=== PATIENT | male | born 1945 | race Caucasian/White ===

== ENCOUNTER → 2019-07-12 10:55 | Outpatient (BNVA) | payer OTHER, SELFPAY | PROVIDERS: Family Provider Internal Medicine; PCP Internal Medicine; Visit Provider Otolaryngology | DX: Z48.89 Encounter for other specified surgical aftercare (principal); H72.91 Unspecified perforation of tympanic membrane, right ear | CPT/HCPCS: 99024; 99214 ==

== ENCOUNTER 2019-08-10 09:45 | Outpatient (CLI) | payer OTHER, SELFPAY | END 2019-08-10 09:46 | disposition home or self-care (01) | LOC: RT 09:47 | PROVIDERS: Family Provider Internal Medicine; PCP Internal Medicine; Visit Provider Internal Medicine Critical Care Medicine | DX: J43.9 Emphysema, unspecified (principal) | CPT/HCPCS: 94010; 94726; 94729 ==

== ENCOUNTER 2019-08-23 11:05 | Outpatient (CLI) | payer OTHER, SELFPAY ==
--- NOTE | 2019-08-23 11:00 | MR_ITS ---
WS: [id number] MRI LEFT SHOULDER HISTORY: left shoulder pain COMPARISON: None available. TECHNIQUE: Multiplanar sequences of the shoulder joint are submitted. Severe AC joint hypertrophy. Severe narrowing of the joint space with large osteophytes extending sup erior and inferior. Marked encroachment and impingement upon the supraspinatus muscle and tendon. Sup raspinatus is being deformed. No rotator cuff tear can be confirmed. There is significant thickening and increased signal involvin g the distal infraspinatus tendon along the inferior articular surface. Fraying of the infraspinatus tendon. Cannot confirm tear. There is no retraction of the tendons or muscle atrophy or edema. No os acromion. Subchondral cystic changes in the humeral head with osteophytes at the bicipital groove. Bi ceps tendon is very small caliber in the bicipital groove with surrounding increased fluid. Fluid ext ends around the biceps tendon sheath. Fluid distends the subscapularis recess. There are small tiny l oose bodies within the fluid. Fluid extends into the axillary pouch with some small loose bodies. Mod erate narrowing of the glenohumeral joint. No labral tear. MR/MR shoulder LT wo con* [id number] IMPRESSION: 1. Severe AC joint arthritis with encroachment, impingement and deformity of t he supraspinatus tendon and muscle. 2. Severe distal infraspinatus tendinopathy. Cannot confirm tendon tear. 3. Small caliber biceps tendon. Partial tear is likely at the bicipital groove with tendinopathy. 4. Increase fluid in the subscapularis recess and the axillary pouch with loos e bodies. May be small calcific or osseous deposits in the fluid. 5. Mild glenohumeral joint narrowing and arthritis.
== END 2019-08-23 11:06 | disposition home or self-care (01) ==
LOC: RADSHAW 11:05
PROVIDERS: Family Provider Internal Medicine; PCP Internal Medicine; Visit Provider Orthopaedic Surgery
DX: M13.812 Other specified arthritis, left shoulder (principal)
CPT/HCPCS: 73221

== ENCOUNTER 2019-11-02 08:56 | Emergency (ER) | payer OTHER, SELFPAY ==
--- NOTE | 2019-11-02 09:05 | W.ED.FALL ---
Documented by User: CORRIE Lozano 11/02/19 11:08 HPI - Fall General: Chief Complaint: Fall Stated Complaint: FALL, NECK INJURY Time Seen by Provider: 11/02/19 09:05 Source: patient Mode of arrival: ambulatory Limitations: no limitations History of Present Illness: HPI Narrative: Patient reports tripping and falling while walking out of the bathroom last night. Patient has a history of surgery to the neck. Patient is concerned for injury of the neck. Patient appears well. Patient appears in mild pain. Patient has a coronary artery disease, degenerative joint disease, depression, chronic pain syndrome, seasonal allergies. Associated symptoms-after fall: Reports neck pain Review of Systems General: Reports: 10 or more systems reviewed and unremarkable except in HPI and below Musc: Reports: neck pain PFSH ED PFSH: Social History Smoking and tobacco status: current every day smoker cigarettes Years cigarettes smoked: 50 Quit status (tobacco): has tried quititng Second hand smoke exposure: No Smoking risk assessment/counseling performed?: Yes Alcohol intake: never Lives independently: Yes Household members: spouse and family Marital status: service: Yes Current occupational status: retired History of recent travel: No Current gender identity: Male Physical Exam Const: COMMON NORMALS: no apparent distress and oriented x3 GENERAL APPEARANCE: cooperative HENMT: COMMON NORMALS: TM's normal bilaterally and external nose normal HEAD & SCALP: abrasion (left frontal scalp) NOSE: external nose normal TYMPANIC MEMBRANE: TM's normal bilaterally MOUTH: oral and palatal mucosa normal THROAT: posterior oropharynx normal Eye: GENERAL EYE: normal appearance of both eyes Neck/C-Spine: GENERAL: Yes normal visual inspection CERVICAL SPINE: Yes cervical ROM abnormal rotation to the left decreased and Yes paracervical muscle tenderness Lymph: LYMPHATIC: no lymphadenopathy noted Chest: COMMONS NORMALS: inspection of chest normal Resp: COMMON NORMALS: normal respiratory effort EFFORT & INSPECTION: Yes able to speak in complete sentences Cardio: COMMON NORMALS: regular rate and regular rhythm RATE: regular rate RHYTHM: regular rhythm GI: COMMON NORMALS: non-tender : COMMON NORMALS: Yes no CVA tenderness BLADDER/KIDNEY EXAM: Yes no CVA tenderness Back/Pelvis: COMMON NORMALS: no CVA tenderness and thoracic and lumbar spine normal to inspection Extremity: COMMON NORMALS: normal to inspection Neuro: COMMON NORMALS: oriented x3 and moves all extremities Psych: COMMON NORMALS: mental status grossly normal and cooperative Skin: COMMON NORMALS: no rashes or lesions noted GENERAL SKIN EXAM: no rashes or lesions noted Course ED course: 1046, reviewed CT scan with Dr. Aguirre after discussion with radiology. Dr. Guzman talked with Dr. Dwyer who reviewed abnormalities,, made recommendations for a [place] J collar and follow-up in 1 week. Vital Signs: Vital signs: Vital Signs Temperature 98.4 F 11/02/19 11:42 Pulse Rate 67 11/02/19 11:42 Respiratory Rate 18 11/02/19 11:42 Blood Pressure 148/84 11/02/19 11:42 Pulse Oximetry 95 11/02/19 11:42 MDM - Fall MDM Narrative: Medical decision making narrative: Patient fell last night striking his head against the door frame and extending his neck. Patient reports some neck discomfort this morning he was concerned for injury. Patient does have a history of previous neck surgery for fusion of disks. Patient appears well. Patient has neck tenderness, c-collar was put in place by nursing on triage. Equal strength in the extremities was noted. Patient does have a noticeable chronic tremor. Differential diagnosis includes fracture, intracranial injury, cervical strain. CT of the head was negative for any abnormality. EKG showed no changes. CT of the neck did show some osteophyte fractures of the C6-C7 but was more concerning for a facet nondisplaced fracture along the C6. Patient also had a thoracic T1 transverse process fracture. Dr. Dwyer was consulted by Dr. Aguirre with recommendations for collar and follow-up. EKG Data^: EKG 1: Attestation: I personally reviewed and interpreted this EKG as follows: (0924, SR regular rate 72 bpm, no ectopy, no ST elevation) Discharge Plan Discharge Patient Disposition: Home, Self-Care Clinical Impression: C6 cervical fracture Qualifiers: Encounter type: initial encounter Fracture type: closed Fracture morphology: unspecified fracture morphology Fracture alignment: nondisplaced Qualified Code(s): S12.501A - Unspecified nondisplaced fracture of sixth cervical vertebra, initial encounter for closed fracture Condition: Stable Prescriptions: New hydrocodone-acetaminophen 5-325 mg tablet 1 tab PO Q6H PRN (Reason: pain (scale score 7-10)) Qty: 20 RF: 0 No Action aspirin 81 mg tablet,delayed release (DR/EC) 81 mg PO DAILY RF: 0 atorvastatin 80 mg tablet 80 mg PO DAILY RF: 0 bupropion HCl 150 mg tablet extended release 24 hr 150 mg PO QAM RF: 0 fludrocortisone 0.1 mg tablet 0.05 mg PO DAILY RF: 0 fluorometholone 0.1 % drops,suspension 1 drop ophthalmic (eye) DAILY RF: 0 nitroglycerin 0.4 mg tablet, sublingual 0.4 mg SUBLINGUAL Q5M PRNRF: 0 omeprazole 20 mg capsule,delayed release(DR/EC) 40 mg PO DAILY RF: 0 quetiapine 200 mg tablet 200 mg PO DAILY RF: 0 sulfasalazine 500 mg tablet 1.5 gm PO BID RF: 0 tamsulosin 0.4 mg capsule 0.4 mg PO DAILY RF: 0 zolpidem 10 mg tablet 10 mg PO DAILY PRNRF: 0 cetirizine 10 mg capsule 10 mg PO DAILY RF: 0 isosorbide mononitrate 30 mg tablet extended release 24 hr 30 mg PO QAM RF: 0 fluticasone propionate [Flonase Allergy Relief] 50 mcg/actuation spray,suspension 1 spray INTRANASAL BID RF: 0 multivitamin Tablet 1 tab PO QAM RF: 0 ascorbic acid (vitamin C) 1,000 mg tablet 1 gm PO DAILY RF: 0 tizanidine 4 mg tablet 4 mg PO DAILY PRNRF: 0 trazodone 100 mg tablet 200 mg PO DAILY RF: 0 sertraline 100 mg tablet 200 mg PO Q24H RF: 0 Discharge Orders: Discharge Order (Routine); Ordered 11/02/19 Ordered By: Marty Ayala Referrals: Denis Degroot [Primary Care Provider] - Discharge Diet: Usual diet Discharge Activity: Increase activity as tolerated Patient Instructions: Cervical Fracture (ED) Activity Restrictions/Additional Instructions: Maintain cervical collar as directed for protection of fracture. Medications as directed for pain and discomfort. Use Tylenol to help control pain with hydrocodone for worse pain. Healthy diet and exercise. Follow-up with neurosurgery in 1 week. Discharge Date/Time: 11/02/19 11:25 Sign Out Sign Out Data: Patient Sign Out occurred on 11/02/19 at 10:52. Patient's care was discussed, and care was transferred from to Chago Aguirre DO. Coding Level of Care Code ED Portfolio Manager for Chg Fwd Exam Comprehensive Documented by User: Chago Aguirre DO 11/02/19 12:47 HPI - Fall General: Chief Complaint: Fall Stated Complaint: FALL, NECK INJURY Time Seen by Provider: 11/02/19 09:05 History of Present Illness: Associated symptoms-after fall: Reports neck pain; Denies abdominal pain or chest pain Review of Systems Const: Denies: fever, chills, change in appetite, fatigue or malaise ENMT: Denies: throat pain, ear pain, nasal discharge or nasal congestion Card: Denies: chest pain, edema, shortness of breath on exertion or shortness of breath when lying down Resp: Denies: shortness of breath, productive cough or non-productive cough GI: Denies: abdominal pain, nausea, vomiting, vomiting blood, coffee grounds in vomit, diarrhea, constipation, bloating, blood in stool or black tarry stool : Denies: flank pain, painful urination, urinary frequency or urinary urgency Musc: Reports: neck pain and back pain Skin/Breast: Denies: rash or itching PFSH ED PFSH: Social History Smoking and tobacco status: current every day smoker cigarettes Years cigarettes smoked: 50 Quit status (tobacco): has tried quititng Second hand smoke exposure: No Smoking risk assessment/counseling performed?: Yes Alcohol intake: never Lives independently: Yes Household members: spouse and family Marital status: service: Yes Current occupational status: retired History of recent travel: No Current gender identity: Male Physical Exam Const: COMMON NORMALS: no apparent distress GENERAL APPEARANCE: cooperative and comfortable ORIENTATION/CONSCIOUSNESS: Yes awake, Yes oriented to person, Yes oriented to place and Yes oriented to time HENMT: COMMON NORMALS: normocephalic, head/scalp atraumatic, hearing grossly normal bilaterally, external ears normal, EAC's normal, TM's normal bilaterally, nasal mucous membranes and turbinates normal, moist oral mucous membranes and oropharynx normal HEAD & SCALP: normocephalic and atraumatic NOSE: nasal mucous membranes and turbinates normal EXTERNAL EAR: Yes external ears normal EXTERNAL AUDITORY CANAL: EAC's normal TYMPANIC MEMBRANE: TM's normal bilaterally Eye: COMMON NORMALS: PERRL, EOMs intact bilaterally, conjunctivae normal and no scleral icterus CONJUNCTIVA: Yes conjunctivae normal PUPIL: Yes PERRL Neck/C-Spine: COMMON NORMALS: no JVD Lymph: LYMPHATIC: no lymphadenopathy noted and no lymphedema noted Resp: COMMON NORMALS: normal respiratory effort, no retractions, no use of accessory muscles and clear to auscultation bilaterally AUSCULTATION: clear to auscultation bilaterally Cardio: COMMON NORMALS: no JVD, regular rate, regular rhythm and no murmurs RATE: regular rate RHYTHM: regular rhythm GI: COMMON NORMALS: soft to palpation and no hepatosplenomegaly AUSCULTATION: Yes normoactive bowel sounds PALPATION: Yes soft, No tender, No guarding and Yes no hepatosplenomegaly Extremity: COMMON NORMALS: normal to inspection, normal capillary refill, no clubbing, cyanosis or edema, no calf tenderness and no pedal edema Neuro: SENSORIUM/ORIENTATION: Yes oriented to person, Yes oriented to place and Yes oriented to time Skin: COMMON NORMALS: no rashes or lesions noted NARRATIVE SKIN EXAM: Superficial abrasions across the forehead, no active bleeding no sign of infection GENERAL SKIN EXAM: no rashes or lesions noted Course Vital Signs: Vital signs: Vital Signs Temperature 98.4 F 11/02/19 11:42 Pulse Rate 67 11/02/19 11:42 Respiratory Rate 18 11/02/19 11:42 Blood Pressure 148/84 11/02/19 11:42 Pulse Oximetry 95 11/02/19 11:42 MDM - Fall MDM Narrative: Medical decision making narrative: Reviewed case with Ovi Ayala also discussed with Dr. Dwyer and reviewed the CT. He recommends a [place] J collar and follow-up within the week. Patient wishes to see his neurosurgeon that did the previous cervical fusion in [place] will have case management follow-up to make sure he is opportunity to see either Dr. Dwyer or that surgeon to make sure that he has some form of follow-up Discharge Plan Discharge Patient Disposition: Home, Self-Care Clinical Impression: C6 cervical fracture Qualifiers: Encounter type: initial encounter Fracture type: closed Fracture morphology: unspecified fracture morphology Fracture alignment: nondisplaced Qualified Code(s): S12.501A - Unspecified nondisplaced fracture of sixth cervical vertebra, initial encounter for closed fracture Condition: Stable Prescriptions: New hydrocodone-acetaminophen 5-325 mg tablet 1 tab PO Q6H PRN (Reason: pain (scale score 7-10)) Qty: 20 RF: 0 No Action aspirin 81 mg tablet,delayed release (DR/EC) 81 mg PO DAILY RF: 0 atorvastatin 80 mg tablet 80 mg PO DAILY RF: 0 bupropion HCl 150 mg tablet extended release 24 hr 150 mg PO QAM RF: 0 fludrocortisone 0.1 mg tablet 0.05 mg PO DAILY RF: 0 fluorometholone 0.1 % drops,suspension 1 drop ophthalmic (eye) DAILY RF: 0 nitroglycerin 0.4 mg tablet, sublingual 0.4 mg SUBLINGUAL Q5M PRNRF: 0 omeprazole 20 mg capsule,delayed release(DR/EC) 40 mg PO DAILY RF: 0 quetiapine 200 mg tablet 200 mg PO DAILY RF: 0 sulfasalazine 500 mg tablet 1.5 gm PO BID RF: 0 tamsulosin 0.4 mg capsule 0.4 mg PO DAILY RF: 0 zolpidem 10 mg tablet 10 mg PO DAILY PRNRF: 0 cetirizine 10 mg capsule 10 mg PO DAILY RF: 0 isosorbide mononitrate 30 mg tablet extended release 24 hr 30 mg PO QAM RF: 0 fluticasone propionate [Flonase Allergy Relief] 50 mcg/actuation spray,suspension 1 spray INTRANASAL BID RF: 0 multivitamin Tablet 1 tab PO QAM RF: 0 ascorbic acid (vitamin C) 1,000 mg tablet 1 gm PO DAILY RF: 0 tizanidine 4 mg tablet 4 mg PO DAILY PRNRF: 0 trazodone 100 mg tablet 200 mg PO DAILY RF: 0 sertraline 100 mg tablet 200 mg PO Q24H RF: 0 Discharge Orders: Discharge Order (Routine); Ordered 11/02/19 Ordered By: Marty Ayala Referrals: Denis Degroot [Primary Care Provider] - Discharge Diet: Usual diet Discharge Activity: Increase activity as tolerated Patient Instructions: Cervical Fracture (ED) Activity Restrictions/Additional Instructions: Maintain cervical collar as directed for protection of fracture. Medications as directed for pain and discomfort. Use Tylenol to help control pain with hydrocodone for worse pain. Healthy diet and exercise. Follow-up with neurosurgery in 1 week. Discharge Date/Time: 11/02/19 11:25 Sign Out Sign Out Data: Patient Sign Out occurred on 11/02/19 at 10:52. Patient's care was discussed, and care was transferred from to Chago Aguirre DO. Coding Level of Care Code ED Portfolio Manager for Chg Fwd Exam Comprehensive
[2019-11-02 09:06] VITALS: BP 138/77; PULSE 73; RESP 16; TEMP 36.6; O2SAT 95; BMI 34.8
--- NOTE | 2019-11-02 09:08 | CT_ITS ---
WS: [id number] CT HEAD TECHNIQUE: Noncontrast CT of the head obtained from the skullbase to the vertex. CLINICAL INFORMATION: fall COMPARISON: None. DLP: 935.[address] scans at [facility] use at least one of these dose optimization techniques: automat ed exposure control; mA and/or kV adjustment per patient size (includes targeted exams where dose is matched to clinical indication); or iterative reconstruction. FINDINGS: No evidence of intracranial hemorrhage or mass effect. Ventricular system and basal cisterns are chin nt. Mild small vessel changes with mild parenchymal volume loss. No extra-axial fluid collections. No evidence of mass or mass effect. Normal casas-white differentiation. Intracranial vascular calcificat ion. Paranasal sinuses and mastoid air cells are well aerated. .Normal visualized soft tissues. CT/CT head wo con* [id number] IMPRESSION: 1. No evidence of intracranial hemorrhage or mass effect. 2. Mild small vessel changes. Mild parenchymal volume loss. 3. No acute intracranial findings.
--- NOTE | 2019-11-02 09:08 | CT_ITS ---
WS: [id number] CT CERVICAL TRAUMA TECHNIQUE: Noncontrast CT of the cervical spine with coronal and sagittal reformatted images. CLINICAL INFORMATION: fall, pain COMPARISON: May 14, 2016 DLP: 870.[address] scans at [facility] use at least one of these dose optimization techniques: automat ed exposure control; mA and/or kV adjustment per patient size (includes targeted exams where dose is matched to clinical indication); or iterative reconstruction. FINDINGS:Nondisplaced fracture involving the right C6 inferior articulating facet extending just to t he lamina junction. Additional tiny fractures nondisplaced involving the anterior bridging right C6-C7 anterior vertebral body osteophytes. Additional tiny nondisplaced fracture involving the left T1 transverse process. Straightening of the normal cervical lordosis. Postoperative changes anterior interbody cervical fusi on C3-C5. Posterior cervical fixation with interconnecting horace and screws. Associated laminectomy def ects. Normal craniocervical junction. Normal C1-C2 articulation. Dens is normal in appearance. Normal occip ital condyles. No high-grade spinal canal narrowing. Normal C1 ring. Notified CORRIE Lozano at 11/02/2019 10:[address]/CT cervical spin wo con* [id number] IMPRESSION: 1. Nondisplaced fracture involving the right C6 inferior articulating facet ex tending just to the lamina junction 2. Additional tiny fractures nondisplaced involving the anterior bridging righ t C6-C7 anterior vertebral body osteophytes. 3. Additional tiny nondisplaced fracture involving the left T1 transverse proc ess. 4. Alignment is normal. Fusion hardware appears in good position at C3-C5 with anterior and posterior element fusion.
--- NOTE | 2019-11-02 09:08 | ECG_ITS ---
Measurements Intervals [place] Rate: 72 P: 41 CA: 116 QRS: 56 QRSD: 118 T: 45 QT: 404 QTc: 443 SINUS RHYTHM WITH SHORT CA INTERVAL MODERATE INTRAVENTRICULAR CONDUCTION DELAY [110+ ms QRS DURATION] Compared to ECG 06/18/2019 12:02:04 Short CA interval now present Electronically Signed On 11-02-2019 15:00:21 CDT by Miki Garnica M.D. [email or web address]
--- NOTE | 2019-11-02 11:32 | DCPLANNER ---
showroom manager was asked to schedule a follow up appointment for patient with Dr. Dwyer. showroom manager called the office of Dr. Dwyer, gave clinic patients information. showroom manager was told that patients information would be printed and given to Alexander for review. Clinic will call caser in and patient with appointment information.
[2019-11-02] MEDS: HYDROcodone-acetaminophen 7.5-325 mg Tablet 1 TAB PO (11:36)
[2019-11-02 11:42] VITALS: BP 148/84; PULSE 67; RESP 18; TEMP 36.9; O2SAT 95
--- NOTE | 2019-11-05 08:32 | DCPLANNER ---
Alexander from Dr. Torres office called correctional case records supervisor and left a message asking if a referral had [facility]. textile conversion manager had called [facility], last week to start the referral process. textile conversion manager called October, was told that patient seen his pack team, and stated that he wanted to follow up with the physician that did patients original surgery in [place]. textile conversion manager called the office of Dr. Dwyer and informed the clinic as of right now patient wants to follow up with the physician that did his surgery originally.
== END 2019-11-02 11:25 | disposition home or self-care (01) ==
PROVIDERS: Emergency Provider Family Medicine; Family Provider Internal Medicine; PCP Internal Medicine
DX: S12.501A Unspecified nondisplaced fracture of sixth cervical vertebra, initial encounter for closed fracture (principal); W01.0XXA Fall on same level from slipping, tripping and stumbling without subsequent striking against object, initial encounter; Z79.82 Long term (current) use of aspirin; F17.210 Nicotine dependence, cigarettes, uncomplicated
CPT/HCPCS: 12345; 70450; 72125; 93005; 97760; 99282; 99284; L0174

== ENCOUNTER 2020-01-08 07:07 | Outpatient (CLI) | payer OTHER, SELFPAY ==
--- NOTE | 2020-01-08 07:23 | ECG_ITS ---
[facility] Test Date: 2020-01-08 Pat Name: Chirag Osman Department: Room: Gender: Male Color Consultant: : 1945 Requested By: Venice Griffiths Order Number: [id number] Diana MD: Venice Griffiths M.D. Interpretive Statements NAME OF STUDY: LEXISCAN SESTAMIBI STRESS TEST INDICATION: Chest Pain PROCEDURE: At the baseline, the blood pressure was 114/69 mmHg with a heart rate of 61 bpm and oxygen saturation 93%. The electrocardiogram showed sinus bradycardia, normal axis with nonspecific T wave abnormality. The Lexiscan was infused over a period of 20 seconds. A total of 0.4 milligrams of Lexiscan was infused. The stress phase was continued for a total of 5 minutes. Heart rate at the end of the stress phase was 66 bpm, oxygen saturation 94% with a blood pressure 144/63 mmHg. The EKG at the peak infusion revealed sinus rhythm with no significant ST-T wave changes. Sestamibi was injected 20 seconds after the Lexiscan infusion. Blood pressure at the end of the recovery phase was 129/67 mmHg, oxygen saturation 93% with a heart rate of 65 beats per minute. CONCLUSION: 1. No significant EKG changes with the LexiScan infusion. 2. No LexiScan induced chest pain or cardiac arrhythmia. 3. Normal blood pressure and heart rate response. 4. Sestamibi/sestamibi perfusion scan pending; see separate report. Electronically Signed On 01-09-2020 17:15:34 CDT by Venice Griffiths M.D. [id number]
--- NOTE | 2020-01-08 07:24 | NMCV_ITS ---
NM aurora perf SPECT r/s* [id number] Chirag Osman Age: 74 Gender: M : 1945 Exam Date: 01/08/2020 08:26 Ordering Phys: Venice Griffiths MD ([email or web address]) Technologist: MARCELO Lawrence Exam Location: [facility] Indications: CHEST PAIN STRESS TEST Please see separate stress test report in [facility] for full findings IMAGE PROTOCOL Rest/Stress 1 Lexiscan Day Radiopharmaceutical Dose (mCi) Administration Site Administered by Rest: Tc-99m 10.9 IV MARCELO Lawrence Sestamibi Stress:Tc-99m 32.7 IV MARCELO Morales Sestamibi Rest: 08-Jan-2020 60 Discovery 630 Stress: 08-Jan-2020 30 Discovery 630 0.4mg Lexiscan. Supine position only as patient was unable to lay prone. SPECT RESULTS Technical Quality: Excellent Raw Data Analysis: Normal Image Corrections: No attenuation or motion correction applied Summed Stress Score: 0 Summed Rest Score: 5 Summed Difference Score: 0 PERFUSION FINDINGS Small size perfusion abnormality of mild severity of apical anterior, mid to apical anterolateral and apical reyes on rest images with improved tracer uptake on stress images. This is suggestive of attenuation artifact. FUNCTIONAL RESULTS (calculated via Gated SPECT) Stress Image LV EF (%): 51 Stress EDV (mL):121 TID: 0.98 Stress ESV (mL):59 FUNCTIONAL FINDINGS: The left ventricle is normal in size. Transient Ischemia Dilatation of 0.98. There is normal left ventricular systolic function. The left ventricular ejection fraction is normal with a value of 51%. There is normal left ventricular wall thickening. IMPRESSIONS 1. Normal myocardial perfusion imaging. Attenuation artifact noted in mid to apical anterolateral, apical anterior and apical reyes. 2. Overall left ventricular systolic function is normal without regional wall motion abnormalities. 3. The left ventricular ejection fraction is normal with a value of 51%. 4. No coronary ischemia based on the study. No prior similar studies to compare. Venice Griffiths MD (Electronically Signed) Final Date: 10 January 2020 17:57 S
[2020-01-08 07:25] VITALS: BMI 34.8
--- NOTE | 2020-01-08 09:28 | SUR.PREOP ---
Patient reports no pain or discomfort prior to the start of the procedure.
[2020-01-08] MEDS: regadenoson 0.4 Mg/5 ml Syringe IVP (09:34)
[2020-01-08 09:54] VITALS: BP 129/67; PULSE 67
== END 2020-01-08 07:08 | disposition home or self-care (01) ==
LOC: CDL 07:08
PROVIDERS: Family Provider Internal Medicine; Visit Provider Internal Medicine Cardiovascular Disease
DX: I25.119 Atherosclerotic heart disease of native coronary artery with unspecified angina pectoris (principal); I25.9 Chronic ischemic heart disease, unspecified
CPT/HCPCS: 78452; 93017; A9500; J2785

== ENCOUNTER 2020-10-14 11:08 | Outpatient (CLI) | payer OTHER, SELFPAY ==
--- NOTE | 2020-10-14 11:13 | MR_ITS ---
WS: [id number] MRI LUMBAR SPINE NONCONTRAST TECHNIQUE: Sagittal T1, T2 and STIR imaging. Axial T1 and T2 imaging. CLINICAL INFORMATION: LOW BACK PAIN COMPARISON: None. FINDINGS: Mild lumbar curve. No acute compression. No high-grade central canal stenosis. L1-L2: Mild annular bulging with narrowing of the subarticular recess bilaterally. Mild right greater than left foraminal narrowing. Mild facet arthropathy. L2-L3: Mild annular bulging. Moderate central canal stenosis with facet arthropathy and ligamentum fl avum flavum hypertrophy. Narrowing of the subarticular recess bilaterally. Foramen are patent. L3-L4: Mild annular bulging with narrowing of the subarticular recess bilaterally. Mild left greater than right foraminal narrowing. Moderate facet arthropathy. L4-L5: Shallow central disc protrusion with mild central canal stenosis. Impingement traversing L5 ne rve roots bilaterally. Moderate facet arthropathy. Mild right greater than left foraminal narrowing. L5-S1: Left pericentral disc protrusion impinges the traversing S1 nerve root in the subarticular rec ess. Correlation left S1 nerve root symptoms. Mild central canal stenosis. Moderate facet arthropathy . Mild left foraminal narrowing. Left renal cyst measuring 2.2 CM. MR/MR lumbar spine wo con* [id number] IMPRESSION: 1. Mild lumbar curve. No acute compression. 2. Moderate central canal stenosis L2-3 due to disc bulging with facet arthrop athy and ligamentum flavum hypertrophy. 3. Left pericentral disc protrusion L5-S1 impinges the traversing left S1 nerv e root in the subarticular recess.Correlation left S1 nerve root symptoms. Mild left L5-S1 foraminal narrowing. 4. Shallow central protrusion L4-5 slightly impinges the traversing L5 nerve r oots bilaterally. 5. Moderate facet arthropathy L3-L5.
== END 2020-10-14 11:09 | disposition home or self-care (01) ==
LOC: RADSHAW 11:10
PROVIDERS: PCP Family Medicine; Visit Provider Family Medicine
DX: M47.816 Spondylosis without myelopathy or radiculopathy, lumbar region (principal); M51.26 Other intervertebral disc displacement, lumbar region; M51.27 Other intervertebral disc displacement, lumbosacral region; M48.061 Spinal stenosis, lumbar region without neurogenic claudication
CPT/HCPCS: 72148

== ENCOUNTER 2021-03-20 17:16 | Emergency (ER) | payer OTHER, MEDICARE, SELFPAY ==
[2021-03-20 17:39] VITALS: BP 150/80; PULSE 82; RESP 20; TEMP 37.1; O2SAT 93; BMI 34.8
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
[2021-03-20 18:46] VITALS: BP 130/76; PULSE 73; RESP 18; O2SAT 92
--- NOTE | 2021-03-24 10:15 | DCPLANNER ---
copy manager had message to schedule a follow up appointment for patient with Dr. Rosas. copy manager faxed patients information to the office of Dr. Rosas, clinic will call patient with appointment information. Patient has [facility] insurance, case filler emailed patients information to Tatiana with [facility], for the authorization process could be started.
--- NOTE | 2021-03-25 12:42 | DCPLANNER ---
Patient had a follow up appointment scheduled for 03.23.21 with [facility] - patient attended appointment.
== END 2021-03-20 18:45 | disposition home or self-care (01) ==
PROVIDERS: Emergency Provider Nurse Practitioner Family; PCP Family Medicine
DX: S05.02XA Injury of conjunctiva and corneal abrasion without foreign body, left eye, initial encounter (principal); H11.32 Conjunctival hemorrhage, left eye; Z79.82 Long term (current) use of aspirin; I25.10 Atherosclerotic heart disease of native coronary artery without angina pectoris; I10 Essential (primary) hypertension; Z85.46 Personal history of malignant neoplasm of prostate; F17.210 Nicotine dependence, cigarettes, uncomplicated; W20.8XXA Other cause of strike by thrown, projected or falling object, initial encounter
CPT/HCPCS: 99282

== ENCOUNTER 2021-11-21 14:06 | Emergency (ER) | payer OTHER, MEDICARE, SELFPAY ==
[2021-11-21 14:36] VITALS: BP 145/83; PULSE 72; RESP 18; TEMP 36.6; O2SAT 95
[2021-11-21 16:02] VITALS: BP 145/83; PULSE 72; RESP 18; TEMP 36.6; O2SAT 95
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
[2021-11-21 16:32] VITALS: BP 145/83; PULSE 72; RESP 18; TEMP 36.6; O2SAT 95
== END 2021-11-21 16:35 | disposition home or self-care (01) ==
PROVIDERS: Emergency Provider Family Medicine; PCP Family Medicine
DX: T20.27XA Burn of second degree of neck, initial encounter (principal); T22.251A Burn of second degree of right shoulder, initial encounter; T31.0 Burns involving less than 10% of body surface; X03.0XXA Exposure to flames in controlled fire, not in building or structure, initial encounter
CPT/HCPCS: 99283

== ENCOUNTER → 2021-11-26 08:30 | Outpatient (BNVA) | payer OTHER, SELFPAY | PROVIDERS: PCP Family Medicine; Visit Provider Nurse Practitioner Family | DX: T20.17XA Burn of first degree of neck, initial encounter (principal); T22.151A Burn of first degree of right shoulder, initial encounter; X08.8XXA Exposure to other specified smoke, fire and flames, initial encounter | CPT/HCPCS: 99203; 99213 ==

== ENCOUNTER → 2021-12-03 08:45 | Outpatient (BNVA) | payer OTHER, SELFPAY | PROVIDERS: PCP Family Medicine; Visit Provider Nurse Practitioner Family | DX: Z09 Encounter for follow-up examination after completed treatment for conditions other than malignant neoplasm (principal) | CPT/HCPCS: 11042; 11045; 99212 ==

== ENCOUNTER 2021-12-28 08:22 | Outpatient (RCR) | payer OTHER, SELFPAY | END 2022-01-07 23:59 | disposition home or self-care (01) | LOC: SOT 08:22 | PROVIDERS: PCP Family Medicine; Referring Provider Family Medicine; Visit Provider Family Medicine | DX: M24.541 Contracture, right hand (principal) | CPT/HCPCS: 97018; 97110; 97140; 97166; 97760 ==

== ENCOUNTER 2022-01-08 06:00 | Outpatient (RCR) | payer OTHER, SELFPAY | END 2022-02-07 23:59 | disposition home or self-care (01) | LOC: SOT 06:00 | PROVIDERS: PCP Family Medicine; Referring Provider Family Medicine; Visit Provider Family Medicine | DX: M24.541 Contracture, right hand (principal) | CPT/HCPCS: 97110; 97140 ==

== ENCOUNTER → 2022-01-26 13:48 | Outpatient (BNVA) | payer OTHER, SELFPAY | PROVIDERS: PCP Family Medicine; Visit Provider Internal Medicine Critical Care Medicine | DX: J43.9 Emphysema, unspecified (principal); D49.1 Neoplasm of unspecified behavior of respiratory system; R91.8 Other nonspecific abnormal finding of lung field; R13.10 Dysphagia, unspecified; F17.210 Nicotine dependence, cigarettes, uncomplicated | CPT/HCPCS: 99214 ==

== ENCOUNTER → 2022-02-08 10:37 | Outpatient (BNVA) | payer OTHER, SELFPAY | PROVIDERS: PCP Family Medicine; Visit Provider Internal Medicine Cardiovascular Disease | DX: I25.119 Atherosclerotic heart disease of native coronary artery with unspecified angina pectoris (principal); E78.5 Hyperlipidemia, unspecified; I10 Essential (primary) hypertension; F17.210 Nicotine dependence, cigarettes, uncomplicated | CPT/HCPCS: 99213; 99214 ==

== ENCOUNTER → 2022-03-02 09:03 | Outpatient (BNVA) | payer OTHER, SELFPAY | PROVIDERS: PCP Family Medicine; Visit Provider Surgery | DX: R13.10 Dysphagia, unspecified (principal) | CPT/HCPCS: 99203 ==

== ENCOUNTER 2022-03-03 09:35 | Day surgery (SDC) | payer OTHER, SELFPAY ==
[2022-03-02 13:28] VITALS: BMI 34.2
[2022-03-03 10:09] VITALS: BP 140/72; PULSE 65; RESP 18; TEMP 36.1; O2SAT 95
--- NOTE | 2022-03-03 10:16 | W.PM.OPSUD ---
Surgery/Procedure H&P Update DATE OF PROCEDURE: March 03, 2022 DATE H&P PERFORMED: 03/02/22 PLANNED PROCEDURE: Operation Date: 03/03/22 11:15 Proposed Procedures p EGD Dilation W/ Balloon 69432,R13.10(Not Applicable) - Ar Stafford DO
[2022-03-03] MEDS: sodium chloride 0.9% 1,000 ML 30 ML IV (10:18)
--- NOTE | 2022-03-03 11:46 | P.ANESASSM_ITS ---
Pre-Anesthetic Assessment Height/Weight: Height 1.8 m Weight 111.584 kg Temp Pulse Resp BP Pulse Ox O2 Del Method 97 F L 65 18 140/72 95 03/03/22 10:09 03/03/22 10:09 03/03/22 10:09 03/03/22 10:09 03/03/22 10:09 03/03/22 10:09 Operation Date: 03/03/22 11:15 Proposed Procedures p EGD Dilation W/ Balloon 72556,R13.10(Not Applicable) - Ar Stafford DO Familial anesthetic complications: None Was Beta Dillon taken within 24 hours: N/A Was Clonidine taken within 24 hours: N/A Last intake: Intake Last Liquid Date 03/02/22 Last Liquid Time 22:00 Last Solid Date 03/02/22 Last Solid Time 22:00 Last Intake: 22:00 Social Tobacco and No alcohol 1-3 cigarettes a day pack(s) per day 60 pack years Exam alert, oriented x 3, clear to auscultation bilaterally and regular rate & rhythm Airway Submandibular: within normal limits Cervical ROM: Other (Cervical fusion x3) Mallampati: Class II Dentition: false History/ROS No significant history except as noted and No significant complaints Pulmonary Sleep Apnea (Supposed to use CPAP but doesn't) CV/HEM Coronary Artery Disease Heart stents x2 in 2010. 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 No changes. Ischemic heart disease None reported Hepatic None reported GI Gastroesophageal Reflux Disease Well controlled Metabolic None reported Musc/skel Lower Back Pain and Osteoarthritis/DJD Neuropsych Anxiety and Depression Anesthetic Plan ASA status: 3 Anesthesia: Anesthesia Evaluation, General and MAC Risk of > 500 ml blood loss (7ml/kg in children): No Medications/Allergies Home Medications Medication Instructions Recorded Confirmed Last Taken Type ascorbic acid (vitamin C) 1,000 mg 1 gm PO DAILY 07/03/19 03/02/22 03/02/22 History tablet aspirin 81 mg tablet,delayed 81 mg PO DAILY 07/03/19 03/02/22 03/02/22 History release atorvastatin 80 mg tablet 80 mg PO DAILY 07/03/19 03/02/22 03/02/22 History bupropion HCl 150 mg 24 hr tablet, 150 mg PO QAM 07/03/19 03/02/22 03/03/22 06:00 History extended release cetirizine 10 mg capsule 10 mg PO DAILY 07/03/19 03/02/22 03/02/22 History fludrocortisone 0.1 mg tablet 0.05 mg PO DAILY 07/03/19 03/02/22 03/02/22 History fluorometholone 0.1 % eye 1 drop ophthalmic (eye) DAILY 07/03/19 03/02/22 03/02/22 History drops,suspension fluticasone propionate 50 1 spray intranasal BID 07/03/19 03/02/22 03/02/22 History mcg/actuation nasal spray,suspension (Flonase Allergy Relief) isosorbide mononitrate 30 mg 30 mg PO QAM 07/03/19 03/02/22 03/03/22 06:00 History tablet,extended release 24 hr multivitamin 1 tab PO QAM 07/03/19 03/02/22 03/02/22 History nitroglycerin 0.4 mg sublingual 0.4 mg sublingual Q5M PRN Chest 07/03/19 03/02/22 Unknown History tablet Pain sulfasalazine 500 mg tablet 1.5 gm PO BID 07/03/19 03/02/22 03/02/22 History tamsulosin 0.4 mg capsule (Flomax) 0.4 mg PO DAILY 07/03/19 03/02/22 03/02/22 History sertraline 100 mg tablet 200 mg PO Q24H 08/01/19 03/02/22 03/02/22 History trazodone 100 mg tablet 200 mg PO DAILY 08/01/19 03/02/22 03/02/22 History cyclobenzaprine 5 mg tablet 5 mg PO TID PRN muscle spams 02/16/21 03/02/22 03/02/22 History quetiapine 200 mg tablet 100 mg PO DAILY 08/11/21 03/02/22 03/02/22 History solifenacin 5 mg tablet (Vesicare) 5 mg PO DAILY 01/26/22 03/02/22 03/02/22 History pantoprazole 40 mg tablet,delayed 40 mg PO BID 6 weeks #84 tabs 03/03/22 Unknown Rx release (Protonix) Allergies Allergy/AdvReac Type Severity Reaction Status Date / Time naproxen Allergy Severe lip Verified 03/02/22 13:24 swelling Current Medications Generic Name Dose Route Start Last Admin Trade Name Freq PRN Reason Stop Dose Admin Sodium Chloride 1,000 mls @ 30 mls/hr 03/03/22 10:00 03/03/22 10:18 Sodium Chloride 0.9% IV 03/04/22 09:59 30 mls/hr .Q24H AL Administration PFSH Anesthesia Medical History Anxiety Coronary artery disease Depression History of recurrent ear infection Hypertension Prostate cancer Had cryogenic process performed Sleep apnea Surgical History History of neck surgery History of surgery on upper extremity Hand Family History Father Stroke Social History Smoking and tobacco status: current some day smoker cigarettes Years cigarettes smoked: 50 Quit status (tobacco): has tried quititng Second hand smoke exposure: No Smoking risk assessment/counseling performed?: Yes Alcohol intake: never Lives independently: Yes Household members: spouse and family Marital status: service: Yes Current occupational status: retired History of recent travel: No Current gender identity: Male Data Anesthesia Cardiac Studies: Sestamibi Stress Test (Cardiology) 01/07
[2022-03-03 12:26] VITALS: BP 142/78; PULSE 59; RESP 18; TEMP 36.7; O2SAT 95
[2022-03-03 12:40] VITALS: BP 166/80; PULSE 67; RESP 18; TEMP 36.7; O2SAT 96
--- NOTE | 2022-03-03 13:05 | ANE.PACU2 ---
Inpatient post-anesthesia follow up: Airway intact: Yes Vital signs: Temperature 98.1 F Pulse Rate 67 Respiratory Rate 18 Blood Pressure 166/80 Pulse Oximetry 96 Oxygen Delivery Me thod Room Air Oxygen Flow Rate Fraction of Inspir ed Oxygen Hydration adequate: Yes Nausea and vomiting: No Pain level: 1 Mental status: Baseline
== END 2022-03-03 13:03 | disposition home or self-care (01) ==
PROVIDERS: PCP Family Medicine; Visit Provider Surgery
DX: K22.70 Barrett's esophagus without dysplasia (principal); K29.50 Unspecified chronic gastritis without bleeding; K21.9 Gastro-esophageal reflux disease without esophagitis; I10 Essential (primary) hypertension; G47.30 Sleep apnea, unspecified; I25.10 Atherosclerotic heart disease of native coronary artery without angina pectoris; Z79.899 Other long term (current) drug therapy; Z79.82 Long term (current) use of aspirin; Z79.51 Long term (current) use of inhaled steroids; F17.210 Nicotine dependence, cigarettes, uncomplicated; Z95.5 Presence of coronary angioplasty implant and graft; Z88.6 Allergy status to analgesic agent
CPT/HCPCS: 43239; 88305; 88342; J2704; J7030

== ENCOUNTER → 2022-03-10 09:48 | Outpatient (BNVA) | payer OTHER, SELFPAY | PROVIDERS: PCP Family Medicine; Visit Provider Orthopaedic Surgery | DX: M65.331 Trigger finger, right middle finger (principal) | CPT/HCPCS: 20550; 99203; J0702; J3490 ==

== ENCOUNTER 2022-03-19 06:00 | Outpatient (RCR) | payer OTHER, SELFPAY | END 2022-04-09 23:59 | disposition home or self-care (01) | LOC: SST 06:00 | PROVIDERS: PCP Family Medicine; Visit Provider Family Medicine | DX: R13.10 Dysphagia, unspecified (principal) | CPT/HCPCS: 92526; 92610 ==

== ENCOUNTER 2022-04-09 10:30 | Outpatient (CLI) | payer OTHER, SELFPAY ==
--- NOTE | 2022-04-09 11:00 | FL_ITS ---
WS: [id number] Exam: FL barium swallow 2cont [id number] Date/Time of Exam: 04/09/2022 11:00 AM Reason For Exam: Fluoroscopy time: minutes # of spot films: Swallowing function at the level of oropharynx was normal. There is smooth stricture of the cervical esophagus at about the level of the C7 which probably is a benign process. No intrinsic esophageal ma sses were seen. Esophageal motility was normal. Small hiatal hernia. No gastroesophageal reflux was o bserved. FL/FL barium swallow 2cont [id number] IMPRESSION: 1. Smooth moderate stricturing along the posterior margin of the cervical esoph viridiana at about the level of C7. This is likely a benign process. 2. No intrinsic esophageal masses were identified. 3. Esophageal motility was otherwise normal. No reflux. 4. Small hiatal hernia noted
== END 2022-04-09 10:31 | disposition home or self-care (01) ==
LOC: RAD 10:31
PROVIDERS: PCP Family Medicine; Visit Provider Internal Medicine Critical Care Medicine
DX: R13.10 Dysphagia, unspecified (principal); K22.2 Esophageal obstruction; K44.9 Diaphragmatic hernia without obstruction or gangrene
CPT/HCPCS: 74221

== ENCOUNTER → 2022-04-15 09:42 | Outpatient (BNVA) | payer OTHER, SELFPAY | PROVIDERS: PCP Family Medicine; Visit Provider Internal Medicine Critical Care Medicine | DX: R91.8 Other nonspecific abnormal finding of lung field (principal); D49.1 Neoplasm of unspecified behavior of respiratory system; J43.9 Emphysema, unspecified; R13.10 Dysphagia, unspecified; F17.210 Nicotine dependence, cigarettes, uncomplicated | CPT/HCPCS: 99214 ==

== ENCOUNTER → 2022-04-20 09:49 | Outpatient (BNVA) | payer OTHER, SELFPAY | PROVIDERS: PCP Family Medicine; Visit Provider Surgery | DX: R91.8 Other nonspecific abnormal finding of lung field (principal); R13.10 Dysphagia, unspecified; K29.70 Gastritis, unspecified, without bleeding; K22.70 Barrett's esophagus without dysplasia | CPT/HCPCS: 99213 ==

== ENCOUNTER → 2022-08-13 09:16 | Outpatient (BNVA) | payer OTHER, SELFPAY | PROVIDERS: PCP Family Medicine; Referring Provider Family Medicine; Visit Provider Orthopaedic Surgery | DX: S46.011A Strain of muscle(s) and tendon(s) of the rotator cuff of right shoulder, initial encounter (principal); X58.XXXA Exposure to other specified factors, initial encounter | CPT/HCPCS: 20610; 99213; J0702; J3490 ==

== ENCOUNTER → 2022-08-16 08:43 | Outpatient (BNVA) | payer OTHER, SELFPAY | PROVIDERS: PCP Family Medicine; Visit Provider Internal Medicine Pulmonary Disease | DX: I25.119 Atherosclerotic heart disease of native coronary artery with unspecified angina pectoris (principal); I10 Essential (primary) hypertension; E78.5 Hyperlipidemia, unspecified; J43.9 Emphysema, unspecified; F17.210 Nicotine dependence, cigarettes, uncomplicated | CPT/HCPCS: Q3014; 99214 ==

== ENCOUNTER → 2022-10-15 10:37 | Outpatient (BNVA) | payer OTHER, SELFPAY | PROVIDERS: PCP Family Medicine; Visit Provider Internal Medicine Pulmonary Disease | DX: R13.10 Dysphagia, unspecified (principal); J43.9 Emphysema, unspecified; D49.1 Neoplasm of unspecified behavior of respiratory system; K22.70 Barrett's esophagus without dysplasia; F17.210 Nicotine dependence, cigarettes, uncomplicated | CPT/HCPCS: 99214 ==

== ENCOUNTER 2022-10-18 08:18 | Outpatient (CLI) | payer OTHER, SELFPAY ==
--- NOTE | 2022-10-18 08:30 | CT_ITS ---
WS: [id number] CT chest wo con [id number] HISTORY: f/u PET/CT positive lung lesion(s) TECHNIQUE: Axial imaging performed through the thorax. Coronal and sagittal reformats are submitted. All CT scans at [facility] use at least one of these dose optimization techniques: automated exposure control; mA and/or kV adjustment per patient size (includes targeted exams where dose is mat ched to clinical indication); or iterative reconstruction. CONTRAST: Omnipaque 350; 100 mL IV. DLP: 513.16 mGy.cm COMPARISON: Chest CT 12/23/2021, PET/CT 08/25/2019 Lungs and central airway: Mild volume loss in the LEFT thorax. Focal area of consolidation measuring 4.5 x 2.4 cm persists at the LEFT lung base with involvement of the pleura. There is a swirling type pattern suggesting rounded atelectasis. This soft tissue opacification has been present on prior imag ing studies dating back to 2019. Also PET/CT negative. No additional pulmonary abnormality. Pleura: No change. No effusion. Heart and pericardium: Normal size heart with no pericardial effusion. Mediastinum and hilary: No mediastinum or hilar adenopathy. Vessels: Moderate coronary artery atherosclerosis. Mild calcification in aorta. Normal size pulmonary artery. Chest wall and lower neck: No soft tissue masses. Upper abdomen: Splenic granulomata. Small hiatal hernia. Visualized adrenal glands are negative. Osseous structures: Reversal the thoracic spine. Moderate spondylitic changes. CT/CT chest wo con [id number] IMPRESSION: 1. Long-term stability volume loss and LEFT basilar pleural opacification. I f avor this pleural opacification is rounded atelectasis which is chronic. 2. No adenopathy. 3. Atherosclerosis coronary arteries.
== END 2022-10-18 08:19 | disposition home or self-care (01) ==
LOC: RAD 08:21
PROVIDERS: PCP Family Medicine; Visit Provider Internal Medicine Pulmonary Disease
DX: R91.8 Other nonspecific abnormal finding of lung field (principal); I25.10 Atherosclerotic heart disease of native coronary artery without angina pectoris
CPT/HCPCS: 71250

== ENCOUNTER 2022-12-10 10:26 | Emergency (ER) | payer OTHER, SELFPAY ==
[2022-12-10] VITALS (28 sets, daily range): BP systolic 122–145; BP diastolic 68–87; PULSE 80–91; RESP 16–30; TEMP 36.8; O2SAT 81–98
--- NOTE | 2022-12-10 10:29 | ECG_ITS ---
[facility] Test Date: 2022-12-10 Pat Name: Chirag Osman Department: Room: Gender: Male Sdv Pilot/Navigator/Dds Operator: : 1945 Requested By: Juan Weiss Order Number: [id number] Diana MD: Alexander Wheeler M.D. Measurements Intervals [place] Rate: 83 P: 53 WA: 130 QRS: 95 QRSD: 141 T: 54 QT: 379 QTc: 446 Interpretive Statements SINUS RHYTHM BORDERLINE RIGHT AXIS DEVIATION [QRS AXIS > 90] INTRAVENTRICULAR CONDUCTION DELAY [130+ ms QRS DURATION] Compared to ECG 11/02/2019 09:24:24 Short WA interval no longer present Electronically Signed On 12-10-2022 13:13:02 CDT by Alexander Wheeler M.D. [id number]
--- NOTE | 2022-12-10 10:29 | XR_ITS ---
WS: [id number] Exam: XR chest 1V portable [id number] Date/Time of Exam: 12/10/2022 10:32 AM Reason For Exam: sob Comparison 12/02/2021. Diffuse infiltrate in the left lower lobe suspicious for pneumonia. The right lung is hyperinflated a nd clear. Heart size is normal. The mediastinum is normal in contour. Degenerative change and dextros coliosis of the thoracic spine. No pneumothorax. No pleural effusion. XR/XR chest 1V portable [id number] IMPRESSION: 1. Diffuse infiltrate in the left lower lobe suggesting pneumonia. There is als o probably some superimposed chronic change in the left lower lobe.
--- NOTE | 2022-12-10 11:21 | W.ED.SOB ---
HPI - SOB/Dyspnea General: Chief Complaint: Shortness of Breath/Dyspnea Stated Complaint: SOB, Weakness Time Seen by Provider: 12/10/22 10:30 Source: patient and family Mode of arrival: ambulatory Limitations: no limitations History of Present Illness: HPI Narrative: Patient was referred to the emergency department by the [place] [facility] locally. Apparently had a couple day history of body aches slight temperature elevation and cough. Also some generalized malaise and decreased appetite. He states he had 1 episode of emesis yesterday. No known exposure to infectious disease. is not ill. He is still remains a smoker and has known coronary artery disease but denies any significant chest pain at this time. States has been taking all his usual medications as prescribed. Denies any wheezing or stridor or other issues with his breathing at this time. Does not wear oxygen at home. He has had both influenza vaccines as well as a full series of COVID vaccines with boosters. Associated symptoms: Reports fever(s) and vomiting; Deny abdominal pain, chest pain, extremity pain, lightheadedness, palpitations or syncope Review of Systems Const: Reports: fever(s), body aches and malaise Eyes: Denies: change in vision ENMT: Denies: throat pain, nasal discharge or nasal congestion Card: Denies: chest pain, palpitations, irregular heart rhythm, lightheadedness, syncope or pre-syncope Resp: Reports: non-productive cough; Denies: wheezing or stridor GI: Reports: vomiting; Denies: abdominal pain, hematemesis or diarrhea : Denies: flank pain, difficulty urinating, dysuria or urinary frequency Musc: Denies: neck pain, back pain, extremity pain or extremity swelling Skin/Breast: Denies: rash Neuro: Denies: headache(s), numbness in extremities or weakness in extremities PFSH ED PFSH: Medical History Anxiety Coronary artery disease Depression History of recurrent ear infection Hypertension Prostate cancer Had cryogenic process performed Sleep apnea Surgical History History of neck surgery History of surgery on upper extremity Hand Hx of colonoscopy with polypectomy Family History Father Stroke Social History Smoking and tobacco status: current every day smoker (0.5 ppd) cigarettes Years cigarettes smoked: 50 Quit status (tobacco): has tried quititng Second hand smoke exposure: No Smoking risk assessment/counseling performed?: Yes Alcohol intake: never Substance/Drug Use: never Lives independently: Yes Household members: spouse and family Marital status: service: Yes Current occupational status: retired Do you think of yourself as: Straight/Heterosexual Current gender identity: Male Physical Exam Narrative: EXAM NARRATIVE: The patient makes good eye contact appears to be in no acute distress occasionally has episodes of coughing paroxysm. Answers questions in a goal-directed fashion. Const: COMMON NORMALS: patient oriented x3 and alert GENERAL APPEARANCE: cooperative and comfortable NUTRITIONAL APPEARANCE: overweight ORIENTATION/CONSCIOUSNESS: Yes awake HENMT: COMMON NORMALS: normocephalic, Normal nasal mucous membranes and turbinates present, moist oral mucous membranes and oropharynx normal HEAD & SCALP: normocephalic NOSE: Normal nasal mucous membranes and turbinates present Eye: COMMON NORMALS: Equal, round and reactive pupils present, EOMs intact bilaterally and conjunctivae normal CONJUNCTIVA: Yes conjunctivae normal PUPIL: Yes Equal, round and reactive pupils present Neck/C-Spine: COMMON NORMALS: full ROM, no lymphadenopathy, no JVD, Thyroid normal and No carotid bruits THYROID: Thyroid normal Chest: COMMONS NORMALS: normal inspection of the chest and normal palpation of entire chest wall Resp: COMMON NORMALS: normal respiratory effort and No use of accessory muscles EFFORT & INSPECTION: Yes able to speak in complete sentences and Yes symmetric chest movement AUSCULTATION: crackles and diminished lung sounds Cardio: COMMON NORMALS: no JVD, regular rate, regular rhythm, No murmurs present (Cardio) and Peripheral pulses 2+ throughout RATE: regular rate RHYTHM: regular rhythm PERIPHERAL PULSES: Peripheral pulses 2+ throughout GI: COMMON NORMALS: Normal to inspection, nondistended, normoactive bowel sounds present, Soft to palpation and non-tender INSPECTION: Yes central obesity PALPATION: Yes Soft to palpation : COMMON NORMALS: Yes no CVA tenderness BLADDER/KIDNEY EXAM: Yes no CVA tenderness Back/Pelvis: COMMON NORMALS: no CVA tenderness, thoracic and lumbar spine normal to inspection and straight leg raise negative bilaterally Extremity: COMMON NORMALS: normal to inspection, full ROM, capillary refill normal, no joint enlargement, no calf tenderness and no pedal edema Neuro: COMMON NORMALS: patient oriented x3, moves all extremities, no focal motor deficits and no sensory deficits noted SENSORIUM/ORIENTATION: Yes alert Psych: COMMON NORMALS: mental status grossly normal Skin: COMMON NORMALS: no rashes or lesions noted, no wounds and turgor normal GENERAL SKIN EXAM: no rashes or lesions noted and turgor normal Course Reevaluation(s): Reevaluation #1: Patient was reexamined. Vital signs are reassuring he is not tachycardic not hypotensive not hypoxic on room air. He does also asked that I look in his right ear as he is developed some right ear pain. He denies any self-inflicted trauma Q-tips etc. Examination of the right ear reveals the inferior canal has some area appears to be abraded with some small amount of blood. It is approximately nursing home between the EAC opening and his TM. The TM appears to be normal in appearance although a little dull but mobile. We discussed continued observation versus continued treatment at home and he is adamant that he wants to go home. I think using pneumonia severity index or 65 scoring he is at low risk and suitable for outpatient treatment. I reviewed the need to return immediately should his symptoms persist or worsen with both he and his spouse and they voiced understanding. Time: 12:37 Vital Signs: Vital signs: Vital Signs Temperature 98.2 F 12/10/22 10:30 Pulse Rate 86 12/10/22 11:35 Respiratory Rate 26 H 12/10/22 11:35 Blood Pressure 122/73 12/10/22 11:35 Pulse Oximetry 93 12/10/22 11:35 Oxygen Delivery Me thod Room Air 12/10/22 11:35 MDM - SOB/Dyspnea Medical Decision Making Patient with greater than 24-hour history of malaise cough and decreased appetite. Does have a history of undiagnosed COPD as he is still a lifelong smoker. No concomitant chest pain. Some subjective and slight fever elevation by history. Clinical examination revealed him to be nonhypoxic nontachycardic but having episodes of coughing. Auscultation of chest revealed diminished breath sounds at the bases with some crackles bilaterally but more pronounced on the left. No other focal findings on his pulmonary examination. His right ear canal is notable for some area of an abrasion and bleeding with an intact TM. Patient was given IV hydration as well as Rocephin loading dose in the emergency department. He meets scoring criteria for consideration for outpatient therapy. He is chest x-ray does not show any other concerning findings, his BNP is in the slight borderline range and he is not having any ischemic changes on EKG and no ongoing chest pain or history of coronary artery disease by his history. We reviewed those possibilities with the patient he is adamant that he wants to go home. He is accompanied by his spouse who supports his decision. Plan will be to discharge on Augmentin as well as antibiotic otic drops for his irritated external auditory canal. We reviewed return precautions in detail. Differential Diagnosis Likely community acquired pneumonia Medical Records I reviewed the patient's medical records. Lab Data I reviewed the patient's lab results. 12/10/22 11:10 12/10/22 11:10 Labs/Radiology: Radiology Impressions Chest X-Ray 12/10/22 10:29 IMPRESSION: 1. Diffuse infiltrate in the left lower lobe suggesting pneumonia. There is also probably some superimposed chronic change in the left lower lobe. Laboratory Results WBC 20.7 10^3/uL (4.0-10.0) H 12/10/22 11:10 RBC 4.07 10^6/uL (4.1-5.3) L 12/10/22 11:10 Hgb 12.3 g/dL (11.7-16.6) 12/10/22 11:10 Hct 37.3 % (42.0-52.0) L 12/10/22 11:10 MCV 91.6 fl (80-94) 12/10/22 11:10 MCH 30.2 pg (28.0-34.0) 12/10/22 11:10 MCHC 33.0 g/dL (30.0-36.0) 12/10/22 11:10 RDW 14.9 % (12.1-15.1) 12/10/22 11:10 Plt Count 166 10^3/cmm (130-400) 12/10/22 11:10 MPV 9.1 fL (7.4-10.4) 12/10/22 11:10 Neut % (Auto) 86.8 % 12/10/22 11:10 Lymph % (Auto) 6.2 % 12/10/22 11:10 [place] % (Auto) 4.8 % 12/10/22 11:10 Eos % (Auto) 0.8 % 12/10/22 11:10 Baso % (Auto) 0.2 % 12/10/22 11:10 Neut # (Auto) 17.92 10^3/uL (1.8-7.7) H 12/10/22 11:10 Lymph # (Auto) 1.3 10^3/uL (0.8-4.8) 12/10/22 11:10 [place] # (Auto) 1.0 10^3/uL (0.2-0.9) H 12/10/22 11:10 Eos # (Auto) 0.2 10^3/uL (0.0-0.8) 12/10/22 11:10 Baso # (Auto) 0.1 10^3/uL (0.0-0.1) 12/10/22 11:10 Nucleated RBC % (auto) 0 % 12/10/22 11:10 Nucleated RBCs # 0.0 /100WBC 12/10/22 11:10 Sodium 138 mmol/L (136-145) 12/10/22 11:10 Potassium 4.1 mmol/L (3.5-5.1) 12/10/22 11:10 Chloride 100 mmol/L (98-107) 12/10/22 11:10 Carbon Dioxide 27 mmol/L (22-29) 12/10/22 11:10 Anion Gap 15.1 (5-19) 12/10/22 11:10 BUN 16 mg/dL (8-23) 12/10/22 11:10 Creatinine 0.9 mg/dL (0.7-1.2) 12/10/22 11:10 GFR Calculation Not Reportable 12/10/22 11:10 Glucose 99 mg/dL (65-115) 12/10/22 11:10 Calculated Osmolality 287 mOsm/kg (285-295) 12/10/22 11:10 Calcium 8.6 mg/dL (8.5-10.5) 12/10/22 11:10 Magnesium 1.9 mg/dL (1.7-2.3) 12/10/22 11:10 Total Bilirubin 0.8 mg/dL (0.15-1.2) 12/10/22 11:10 AST 13 U/L (0-40) 12/10/22 11:10 ALT 13 U/L (0-41) 12/10/22 11:10 Alkaline Phosphatase 43 U/L (40-130) 12/10/22 11:10 NT-Pro-B Natriuret Pep 457 pg/mL (0-450) H 12/10/22 11:10 Total Protein 6.6 g/dL (6.6-8.7) 12/10/22 11:10 Albumin 3.8 g/dL (3.5-5.2) 12/10/22 11:10 Globulin 2.8 g/dL (1.3-4.6) 12/10/22 11:10 Influenza Type A Ag negative (Negative) 12/10/22 11:35 Influenza Type B Ag negative (Negative) 12/10/22 11:35 SARS-CoV-2 Ag (Rapid) negative (Negative) 12/10/22 11:20 EKG Data EKG 1: I personally reviewed and interpreted this EKG as follows: Interpretation: Contemporaneous review of the resting electrocardiogram reveals a ventricular rate of 83 bpm. Normal AR interval, normal QRS duration. Normal corrected QT interval. Normal axis. No acute ST-T wave changes noted at this time. Compared with tracing from October 2019 there has been some widening in the terminal QRS on anterior leads. Discharge Plan Discharge Patient Disposition: Home Clinical Impression: Left lower lobe pneumonia, Otitis externa of right ear Condition: Stable Prescriptions: New amoxicillin-pot clavulanate [Augmentin XR] 1,000-62.5 mg tablet extended release 12 hr 1 tab PO BID 7 Days Qty: 14 0RF Cortisporin-TC 3.3-3-10-0.5 mg/mL drops,suspension 4 drp otic (ear) TID Qty: 10 0RF No Action aspirin 81 mg tablet,delayed release (DR/EC) 81 mg PO BEDTIME atorvastatin 80 mg tablet 80 mg PO BEDTIME sulfasalazine 500 mg tablet 1,500 mg PO BID tamsulosin [Flomax] 0.4 mg capsule 0.8 mg PO BEDTIME multivitamin Tablet 1 tab PO QAM fluorometholone 0.1 % drops,suspension 1 drp ophthalmic (eye) DAILY PRN (Reason: unknown) fluticasone propionate [Flonase Allergy Relief] 50 mcg/actuation spray,suspension 1 spray INTRANASAL BID sertraline 100 mg tablet 200 mg PO QAM trazodone 100 mg tablet 300 mg PO BEDTIME Spiriva Respimat 1.25 mcg/actuation mist 2 puff inhalation DAILY Qty: 4 3RF isosorbide mononitrate 30 mg tablet extended release 24 hr 45 mg PO QAM Qty: 135 2RF trospium 20 mg tablet 20 mg PO BID Rx Instructions: administer on an empty stomach omeprazole 20 mg tablet,delayed release (DR/EC) 40 mg PO QAM Seroquel 300 mg Tablet 150 mg PO BEDTIME Zyrtec 10 mg Tablet 10 mg PO DAILY Tylenol Ex Str Rapid Release 500 mg Tablet 1,500 mg PO Q6H PRN (Reason: Pain) Robaxin 750 mg Tablet 750 mg PO BEDTIME Vitamin C 500 mg Tablet 1,000 mg PO QAM Nitrostat 0.4 mg Tablet, Sublingual 0.4 mg SUBLINGUAL Q5M PRN (Reason: Chest Pain) Rx Instructions: do not exceed 3 doses per episode hydrocortisone 2.5 % Cream 1 applic TOPICAL QID PRN (Reason: unknown) albuterol sulfate 90 mcg/actuation Hfa Aerosol Inhaler 1 inh INHALATION QID PRN (Reason: Shortness Of Breath) Wellbutrin XL 300 mg Tablet Extended Release 24 Hr 150 mg PO QAM diclofenac sodium [Voltaren Arthritis Pain] 1 % Gel 2 g TOPICAL TID PRN (Reason: Pain) Vitamin D3 50 mcg (2,000 unit) Capsule 50 mcg PO DAILY Discharge Orders: Discharge ED (Routine); Ordered 12/10/22 Ordered By: Abdirashid Inman Referrals: Aaliyah Britton MD [Primary Care Provider] - Discharge Diet: Usual diet Discharge Activity: Increase activity as tolerated Patient Instructions: Opioid Safety, Pain Management Activity Restrictions/Additional Instructions: As we discussed you have pneumonia in your left lower lung that we are continue on antibiotics for the next week. We also recommend you keep well-hydrated with at least 2 quarts of water and other fluids daily. You may use Tylenol for fever over 101. If you are not continuing to improve or worsen at any time such as difficulty breathing high fevers inability to tolerate your medication return to the emergency department immediately. We have also given you eardrops for your right ear canal infection use those for the next week as directed. Do not use Q-tips or other objects in your ear. Coding Level of Care Code ED Procedures Analyst for Nick Soliz
[2022-12-10 11:22] LABS: Basophils # 0.1 10^3/uL (0.0-0.1); Basophils % 0.2 %; Eosinophils # 0.2 10^3/uL (0.0-0.8); Eosinophils % 0.8 %; Hematocrit 37.3 % (42.0-52.0); Hemoglobin 12.3 g/dL (11.7-16.6); Lymphocytes # 1.3 10^3/uL (0.8-4.8); Lymphocytes % 6.2 %; Mean Corpuscular Hemoglobin 30.2 pg (28.0-34.0); Mean Corpuscular Volume 91.6 fl (80-94); Mean Platelet Volume 9.1 fL (7.4-10.4); Monocytes % 4.8 %; Neutrophils # 17.92 10^3/uL (1.8-7.7); Neutrophils % 86.8 %; Nucleated Red Blood Cells % 0 %; Platelet Count 166 10^3/cmm (130-400); Red Blood Count 4.07 10^6/uL (4.1-5.3); Red Cell Distribution Width 14.9 % (12.1-15.1); White Blood Count 20.7 10^3/uL (4.0-10.0)
[2022-12-10] MEDS: sodium chloride 0.9% 1,000 ML 999 ML IV (11:34)
[2022-12-10 11:48] LABS: SARS Covid-2 Antigen negative (Negative)
[2022-12-10 11:50] LABS: Alanine Aminotransferase 13 U/L (0-41); Albumin Level 3.8 g/dL (3.5-5.2); Alkaline Phosphatase 43 U/L (40-130); Anion Gap 15.1 (5-19); Aspartate Amino Transferase 13 U/L (0-40); Blood Urea Nitrogen 16 mg/dL (8-23); Calcium 8.6 mg/dL (8.5-10.5); Carbon Dioxide 27 mmol/L (22-29); Chloride 100 mmol/L (98-107); Globulin 2.8 g/dL (1.3-4.6); Glucose 99 mg/dL (65-115); Magnesium 1.9 mg/dL (1.7-2.3); NT Pro B Type Natriuretic Pept 457 pg/mL (0-450); Osmolality Calculated 287 mOsm/kg (285-295); Potassium 4.1 mmol/L (3.5-5.1); Sodium 138 mmol/L (136-145); Total Bilirubin 0.8 mg/dL (0.15-1.2); Total Protein 6.6 g/dL (6.6-8.7)
--- NOTE | 2022-12-10 11:52 | PC.PHAR ---
pts verified pts medications-pts states the pt is taking wellbutrin xl 300mg takes 150mg qam va med list has 300mg qam-pts states the pt takes quetiapine 300mg take 150mg hs va med list has 150mg bid-va med list has robaxin 750mg qid prn pts states the pt takes 750mg hs-notes are made in the pharmacy comments
[2022-12-10 12:00] LABS: Influenza A by IFA negative (Negative); Influenza B by IFA negative (Negative)
[2022-12-10] MEDS: cefTRIAXone 2,000 MG in sodium chloride 0.9% (plus) 50 ML 100 MG IV (12:39)
== END 2022-12-10 13:19 | disposition home or self-care (01) ==
PROVIDERS: Emergency Medicine; Emergency Provider Emergency Medicine; PCP Family Medicine
DX: J18.9 Pneumonia, unspecified organism (principal); H60.91 Unspecified otitis externa, right ear; Z79.82 Long term (current) use of aspirin; Z20.822 Contact with and (suspected) exposure to COVID-19; F17.210 Nicotine dependence, cigarettes, uncomplicated; I25.10 Atherosclerotic heart disease of native coronary artery without angina pectoris; I10 Essential (primary) hypertension; Z85.46 Personal history of malignant neoplasm of prostate
CPT/HCPCS: 36415; 71045; 80053; 83735; 83880; 85025; 87040; 87426; 87804; 93005; 96361; 96374; 99285; J0696; J7030

== ENCOUNTER 2023-01-10 12:49 | Emergency (ER) | payer OTHER, SELFPAY ==
[2023-01-10 13:08] VITALS: BP 122/67; PULSE 73; RESP 16; TEMP 36.7; O2SAT 93; BMI 34.8
--- NOTE | 2023-01-10 13:09 | XRR_ITS ---
PROCEDURE INFORMATION: Exam: XR Chest Exam date and time: 01/10/2023 1:17 PM Age: 77 years old Clinical indication: Shortness of breath; Additional info: SOB TECHNIQUE: Imaging protocol: Radiologic exam of the chest. Views: 1 view. COMPARISON: CR XR chest 1V portable [id number] 12/10/2022 10:57 AM FINDINGS: Lungs: Left lower lobe interstitial densities are noted decreased since prior examination No consolidation. Pleural spaces: Unremarkable. No pleural effusion. No pneumothorax. Heart/Mediastinum: Unremarkable. No cardiomegaly. 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 XR/XR chest 1V portable [id number] IMPRESSION: 1. Decreased left lower lobe interstitial densities 2. Otherwise negative chest examination
--- NOTE | 2023-01-10 13:27 | CT_ITS ---
WS: [id number] CT CHEST TECHNIQUE: Noncontrast CT of the chest with coronal and sagittal reformatted images. CLINICAL INFORMATION: abnormal CXR; no clinical response to abx; SOB/pain COMPARISON: CT chest October 18, 2022 DLP: 1298.[address] scans at [facility] use at least one of these dose optimization techniques: automated e xposure control; mA and/or kV adjustment per patient size (includes targeted exams where dose is matc hed to clinical indication); or iterative reconstruction. FINDINGS: Tiny LEFT pleural effusion similar to previous. Bronchiectasis LEFT lower lobe with LEFT basilar roun d atelectasis appears unchanged. Increased patchy opacities LEFT lower lobe extending into the lingul a and LEFT upper lobe are new from previous suspicious for pneumonia. RIGHT lung is well aerated. Sli ght RIGHT basilar atelectasis. Volume loss LEFT lung. Normal caliber thoracic aorta. Coronary calcification. Aortic aortic calcification. No axillary lymph adenopathy. Adrenal glands are normal. Splenic granulomas. Fatty atrophy of the pancreas. Small esophageal hiatal hernia. Moderate thoracic kyphosis with ankylosis. CT/CT chest wo con [id number] IMPRESSION: 1. New progressed patchy infiltrates in the LEFT lower lobe, lingula, and infe rior LEFT upper lobe compatible with infectious or inflammatory pneumonia. 2. Tiny LEFT pleural effusion is unchanged. 3. Stable bronchiectasis the round atelectasis LEFT lower lobe. 4. RIGHT lung is well aerated.
--- NOTE | 2023-01-10 13:28 | ED_ITS ---
HPI - SOB/Dyspnea General: Chief Complaint: Shortness of Breath/Dyspnea Stated Complaint: SOB, wheezing, hurts when he breathes Time Seen by Provider: 01/10/23 13:14 Source: patient Mode of arrival: ambulatory Limitations: no limitations History of Present Illness: HPI Narrative: Patient is a 77-year-old male who presents to ED today with a complaint of chest pain, shortness of breath, productive cough, low-grade fevers. Patient states approximately a month ago he was seen here in our facility and diagnosed with pneumonia. He was placed on Augmentin. He does feel like he has slightly improved while on this medication but never fully improved. He states [facility] therefore they placed him on Doxycycline. He states he is still taking this medication but feels like he is not improving. He is now having chest pain and low-grade fevers which was not there previously. Patient does have known COPD. He smokes daily. MD elicited complaint: shortness of breath, cough and chest pain Pertinent past history: COPD and pneumonia Onset (ago): week(s) Timing: constant Severity: moderate Relieving factors: nothing Known history of: COPD and aspiration pneumonia Associated symptoms: Reports chest congestion, chest pain and fever(s) (reports low grade); Deny abdominal pain, extremity pain, hemoptysis, lightheadedness, nausea, orthopnea, palpitations, syncope or vomiting Treatment prior to arrival: other (antibiotics) Related Data: Home oxygen amount: none Review of Systems Const: Reports: fever(s) (reports low grade), chills, body aches and fatigue Eyes: Denies: change in vision, blurry vision, photophobia, floaters or seeing flashes ENMT: Denies: throat pain, odynophagia, ear or mastoid pain, nasal discharge, nasal congestion or sinus pain Card: Reports: chest pain and dyspnea on exertion; Denies: palpitations, irregular heart rhythm, edema, swelling of feet/ankles, lightheadedness, syncope, pre-syncope, orthopnea, leg pain with exertion or acrocyanosis Resp: Reports: dyspnea, productive cough, pain on inspiration and chest congestion; Denies: wheezing or hemoptysis GI: Denies: abdominal pain, nausea, vomiting or diarrhea : Denies: flank pain, dysuria or hematuria Musc: Denies: neck pain, back pain, extremity pain or joint pain Skin/Breast: Denies: rash Neuro: Denies: headache(s), numbness in extremities, weakness in extremities or sensory changes PFSH ED PFSH: Medical History Anxiety Coronary artery disease Depression History of recurrent ear infection Hypertension Prostate cancer Had cryogenic process performed Sleep apnea Surgical History History of neck surgery History of surgery on upper extremity Hand Hx of colonoscopy with polypectomy Family History Father Stroke Social History Smoking and tobacco status: current every day smoker (0.5 ppd) cigarettes Years cigarettes smoked: 50 Quit status (tobacco): has tried quititng Second hand smoke exposure: No Smoking risk assessment/counseling performed?: Yes Alcohol intake: never Substance/Drug Use: never Lives independently: Yes Household members: spouse and family Marital status: service: Yes Current occupational status: retired Do you think of yourself as: Straight/Heterosexual Current gender identity: Male Physical Exam Const: COMMON NORMALS: no acute distress, patient oriented x3, no limitations, alert and well nourished GENERAL APPEARANCE: cooperative NUTRITIONAL APPEARANCE: overweight ORIENTATION/CONSCIOUSNESS: Yes awake, Yes oriented to person, Yes oriented to place and Yes oriented to time HENMT: COMMON NORMALS: normocephalic and atraumatic HEAD & SCALP: normal to inspection, normocephalic and atraumatic Neck/C-Spine: COMMON NORMALS: full ROM, no lymphadenopathy, supple, no meningeal signs and no JVD Chest: COMMONS NORMALS: normal inspection of the chest and normal palpation of entire chest wall Resp: COMMON NORMALS: normal respiratory effort AUSCULTATION: diminished lung sounds Cardio: COMMON NORMALS: no JVD, regular rate and regular rhythm RATE: regular rate RHYTHM: regular rhythm GI: COMMON NORMALS: Normal to inspection, nondistended, normoactive bowel sounds present, Soft to palpation, non-tender, No hepatosplenomegaly present and no masses PALPATION: Yes Soft to palpation and Yes No hepatosplenomegaly present : COMMON NORMALS: Yes no CVA tenderness BLADDER/KIDNEY EXAM: Yes no CVA tenderness Back/Pelvis: COMMON NORMALS: no CVA tenderness and thoracic and lumbar spine normal to inspection Extremity: COMMON NORMALS: normal to inspection, capillary refill normal, no joint enlargement, no clubbing, cyanosis or edema, no calf tenderness and no pedal edema GENERAL: Yes normal exam except as noted Neuro: ERNST COMA SCALE: document GCS findings [place] coma scale eye opening: Spontaneous [place] coma scale verbal response: Orientated Ernst coma scale motor response: Obey commands [place] coma scale total score: 15 COMMON NORMALS: patient oriented x3 SENSORIUM/ORIENTATION: Yes alert, Yes oriented to person, Yes oriented to place and Yes oriented to time MENINGEAL SIGNS: Yes no meningeal signs Skin: COMMON NORMALS: no rashes or lesions noted GENERAL SKIN EXAM: no rashes or lesions noted Course ED course: Patient has now had three abnormal CXRs without any improvement despite multiple rounds of antibiotics. He is a daily smoker and has been for many many decades. He needs CT imaging at this point to rule out mass/malignancy. ES Vital Signs: Vital signs: Vital Signs Temperature 98.0 F 01/10/23 13:08 Pulse Rate 73 01/10/23 13:08 Respiratory Rate 18 01/10/23 14:16 Blood Pressure 122/67 01/10/23 13:08 Pulse Oximetry 93 01/10/23 13:08 Oxygen Delivery Me thod Room Air 01/10/23 13:08 MDM - SOB/Dyspnea Medical Decision Making Patient clinically appears in no acute distress. His vital signs are stable. He is satting at 93% on room air. Chest CT showing new progressed patchy infiltrates in the left lower lobe, lingula, and inferior left upper lobe compatible with infectious or inflammatory pneumonia. Patient is on day 3 of a 10-day course of doxycycline. We will add him on a third-generation cephalosporin for additional coverage. We will place him on steroids. Recommend prompt follow-up with primary care later this week. Strict return ED precautions given. Lab Data 01/10/23 13:35 01/10/23 13:35 Labs/Radiology: Radiology Impressions Chest X-Ray 01/10/23 13:09 IMPRESSION: 1. Decreased left lower lobe interstitial densities 2. Otherwise negative chest examination Chest CT 01/10/23 13:27 IMPRESSION: 1. New progressed patchy infiltrates in the LEFT lower lobe, lingula, and inferior LEFT upper lobe compatible with infectious or inflammatory pneumonia. 2. Tiny LEFT pleural effusion is unchanged. 3. Stable bronchiectasis the round atelectasis LEFT lower lobe. 4. RIGHT lung is well aerated. Laboratory Results WBC 7.9 10^3/uL (4.0-10.0) 01/10/23 13:35 RBC 3.66 10^6/uL (4.1-5.3) L 01/10/23 13:35 Hgb 10.7 g/dL (11.7-16.6) L 01/10/23 13:35 Hct 33.4 % (42.0-52.0) L 01/10/23 13:35 MCV 91.3 fl (80-94) 01/10/23 13:35 MCH 29.2 pg (28.0-34.0) 01/10/23 13:35 MCHC 32.0 g/dL (30.0-36.0) 01/10/23 13:35 RDW 13.9 % (12.1-15.1) 01/10/23 13:35 Plt Count 147 10^3/cmm (130-400) 01/10/23 13:35 MPV 9.7 fL (7.4-10.4) 01/10/23 13:35 Neut % (Auto) 66.8 % 01/10/23 13:35 Lymph % (Auto) 19.2 % 01/10/23 13:35 [place] % (Auto) 9.5 % 01/10/23 13:35 Eos % (Auto) 3.7 % 01/10/23 13:35 Baso % (Auto) 0.5 % 01/10/23 13:35 Neut # (Auto) 5.29 10^3/uL (1.8-7.7) 01/10/23 13:35 Lymph # (Auto) 1.5 10^3/uL (0.8-4.8) 01/10/23 13:35 [place] # (Auto) 0.8 10^3/uL (0.2-0.9) 01/10/23 13:35 Eos # (Auto) 0.3 10^3/uL (0.0-0.8) 01/10/23 13:35 Baso # (Auto) 0.0 10^3/uL (0.0-0.1) 01/10/23 13:35 Nucleated RBC % (auto) 0 % 01/10/23 13:35 Nucleated RBCs # 0.0 /100WBC 01/10/23 13:35 Sodium 132 mmol/L (136-145) L 01/10/23 13:35 Potassium 4.4 mmol/L (3.5-5.1) 01/10/23 13:35 Chloride 96 mmol/L (98-107) L 01/10/23 13:35 Carbon Dioxide 26 mmol/L (22-29) 01/10/23 13:35 Anion Gap 14.4 (5-19) 01/10/23 13:35 BUN 9 mg/dL (8-23) 01/10/23 13:35 Creatinine 0.7 mg/dL (0.7-1.2) 01/10/23 13:35 GFR Calculation Not Reportable 01/10/23 13:35 Glucose 106 mg/dL (65-115) 01/10/23 13:35 Calculated Osmolality 273 mOsm/kg (285-295) L 01/10/23 13:35 Calcium 8.6 mg/dL (8.5-10.5) 01/10/23 13:35 Total Bilirubin 0.2 mg/dL (0.15-1.2) 01/10/23 13:35 AST 11 U/L (0-40) 01/10/23 13:35 ALT 9 U/L (0-41) 01/10/23 13:35 Alkaline Phosphatase 41 U/L (40-130) 01/10/23 13:35 Troponin T Baseline 8 ng/L (0-15) 01/10/23 13:35 Total Protein 6.4 g/dL (6.6-8.7) L 01/10/23 13:35 Albumin 3.3 g/dL (3.5-5.2) L 01/10/23 13:35 Globulin 3.1 g/dL (1.3-4.6) 01/10/23 13:35 Procalcitonin 0.03 ng/mL (0-0.5) 01/10/23 13:35 Discharge Plan Discharge Patient Disposition: Home Clinical Impression: Pneumonia involving left lung Qualifiers: Pneumonia type: due to unspecified organism Lung location: unspecified part of lung Qualified Code(s): J18.9 - Pneumonia, unspecified organism Condition: Stable Prescriptions: New cefpodoxime 200 mg tablet 200 mg PO BID Qty: 14 0RF Rx Instructions: must administer with a meal/food prednisone 10 mg tablet 60 mg PO DAILY 5 Days Qty: 30 0RF No Action aspirin 81 mg tablet,delayed release (DR/EC) 81 mg PO BEDTIME atorvastatin 80 mg tablet 80 mg PO BEDTIME sulfasalazine 500 mg tablet 1,500 mg PO BID tamsulosin [Flomax] 0.4 mg capsule 0.8 mg PO BEDTIME multivitamin Tablet 1 tab PO QAM fluorometholone 0.1 % drops,suspension 1 drp ophthalmic (eye) DAILY PRN (Reason: unknown) fluticasone propionate [Flonase Allergy Relief] 50 mcg/actuation spray,susp ension 1 spray INTRANASAL BID sertraline 100 mg tablet 200 mg PO QAM trazodone 100 mg tablet 300 mg PO BEDTIME Spiriva Respimat 1.25 mcg/actuation mist 2 puff inhalation DAILY Qty: 4 3RF isosorbide mononitrate 30 mg tablet extended release 24 hr 45 mg PO QAM Qty: 135 2RF trospium 20 mg tablet 20 mg PO BID Rx Instructions: administer on an empty stomach omeprazole 20 mg tablet,delayed release (DR/EC) 40 mg PO QAM Seroquel 300 mg Tablet 150 mg PO BEDTIME Zyrtec 10 mg Tablet 10 mg PO DAILY Tylenol Ex Str Rapid Release 500 mg Tablet 1,500 mg PO Q6H PRN (Reason: Pain) Robaxin 750 mg Tablet 750 mg PO BEDTIME Vitamin C 500 mg Tablet 1,000 mg PO QAM Nitrostat 0.4 mg Tablet, Sublingual 0.4 mg SUBLINGUAL Q5M PRN (Reason: Chest Pain) Rx Instructions: do not exceed 3 doses per episode hydrocortisone 2.5 % Cream 1 applic TOPICAL QID PRN (Reason: unknown) albuterol sulfate 90 mcg/actuation Hfa Aerosol Inhaler 1 inh INHALATION QID PRN (Reason: Shortness Of Breath) Wellbutrin XL 300 mg Tablet Extended Release 24 Hr 150 mg PO QAM diclofenac sodium [Voltaren Arthritis Pain] 1 % Gel 2 g TOPICAL TID PRN (Reason: Pain) Vitamin D3 50 mcg (2,000 unit) Capsule 50 mcg PO DAILY Cortisporin-TC 3.3-3-10-0.5 mg/mL drops,suspension 4 drp otic (ear) TID Qty: 10 0RF Discharge Orders: Discharge ED (Routine); Ordered 01/10/23 Ordered By: Juliane Nevarez Referrals: Jessica Heredia MD [Primary Care Provider] - Patient Instructions: Community Acquired Pneumonia (DC), Bacterial Pneumonia (DC) Activity Restrictions/Additional Instructions: As we discussed [facility] He needs to return to the emergency department for worsening shortness of breath, chest pain, difficulty breathing, fevers, generally feeling worse or unwell, low O2 at home, or any other concerns you may have. I hope you begin to feel better soon. Coding Level of Care Code ED Clinical Operations Leader for Nick Soliz
[2023-01-10 13:44] LABS: Basophils % 0.5 %; Eosinophils # 0.3 10^3/uL (0.0-0.8); Eosinophils % 3.7 %; Hematocrit 33.4 % (42.0-52.0); Hemoglobin 10.7 g/dL (11.7-16.6); Lymphocytes # 1.5 10^3/uL (0.8-4.8); Lymphocytes % 19.2 %; Mean Corpuscular Hemoglobin 29.2 pg (28.0-34.0); Mean Corpuscular Volume 91.3 fl (80-94); Mean Platelet Volume 9.7 fL (7.4-10.4); Monocytes # 0.8 10^3/uL (0.2-0.9); Monocytes % 9.5 %; Neutrophils # 5.29 10^3/uL (1.8-7.7); Neutrophils % 66.8 %; Nucleated Red Blood Cells % 0 %; Platelet Count 147 10^3/cmm (130-400); Red Blood Count 3.66 10^6/uL (4.1-5.3); Red Cell Distribution Width 13.9 % (12.1-15.1); White Blood Count 7.9 10^3/uL (4.0-10.0)
[2023-01-10 14:06] LABS: Alanine Aminotransferase 9 U/L (0-41); Albumin Level 3.3 g/dL (3.5-5.2); Alkaline Phosphatase 41 U/L (40-130); Anion Gap 14.4 (5-19); Aspartate Amino Transferase 11 U/L (0-40); Blood Urea Nitrogen 9 mg/dL (8-23); Calcium 8.6 mg/dL (8.5-10.5); Carbon Dioxide 26 mmol/L (22-29); Chloride 96 mmol/L (98-107); Globulin 3.1 g/dL (1.3-4.6); Glucose 106 mg/dL (65-115); Osmolality Calculated 273 mOsm/kg (285-295); Potassium 4.4 mmol/L (3.5-5.1); Sodium 132 mmol/L (136-145); Total Bilirubin 0.2 mg/dL (0.15-1.2); Total Protein 6.4 g/dL (6.6-8.7); Troponin(5th) Baseline 8 ng/L (0-15)
[2023-01-10 14:11] LABS: Procalcitonin 0.03 ng/mL (0-0.5)
[2023-01-10 14:16] VITALS: RESP 18
--- NOTE | 2023-01-10 14:28 | ECG_ITS ---
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 Measurements Intervals [place] Rate: 64 P: 40 [place]: 136 QRS: 70 QRSD: 117 T: 58 QT: 404 QTc: 417 Interpretive Statements SINUS RHYTHM MODERATE INTRAVENTRICULAR CONDUCTION DELAY [110+ ms QRS DURATION] Compared to ECG 12/10/2022 11:12:02 No significant changes Electronically Signed On 01-10-2023 18:41:11 CDT by Moisés De Los Santos M.D. [email or web address]
== END 2023-01-10 15:01 | disposition home or self-care (01) ==
PROVIDERS: Emergency Provider Physician Assistant; PCP Family Medicine
DX: J18.9 Pneumonia, unspecified organism (principal); F17.210 Nicotine dependence, cigarettes, uncomplicated; J44.9 Chronic obstructive pulmonary disease, unspecified; Z79.899 Other long term (current) drug therapy
CPT/HCPCS: 36415; 71045; 71250; 80053; 84145; 84484; 85025; 93005; 99285

== ENCOUNTER → 2023-01-19 08:03 | Outpatient (BNVA) | payer OTHER, SELFPAY | PROVIDERS: PCP Family Medicine; Visit Provider Internal Medicine Pulmonary Disease | DX: J43.9 Emphysema, unspecified (principal); R91.8 Other nonspecific abnormal finding of lung field; D49.1 Neoplasm of unspecified behavior of respiratory system; R13.10 Dysphagia, unspecified; F17.210 Nicotine dependence, cigarettes, uncomplicated; J69.0 Pneumonitis due to inhalation of food and vomit | CPT/HCPCS: 87015; 87070; 87116; 87205; 87206; 87801; 99214 ==

== ENCOUNTER 2023-01-22 13:20 | Inpatient (IN) | payer OTHER, SELFPAY ==
[2023-01-22] VITALS (12 sets, daily range): BP systolic 97–142; BP diastolic 54–73; PULSE 76–88; RESP 15–28; TEMP 36.8–37.1; O2SAT 91–98; BMI 34.8
--- NOTE | 2023-01-22 13:39 | ECG_ITS ---
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 Measurements Intervals [place] Rate: 87 P: 55 MT: 122 QRS: 89 QRSD: 161 T: 33 QT: 400 QTc: 484 Interpretive Statements SINUS RHYTHM RIGHT BUNDLE BRANCH BLOCK [120+ ms QRS DURATION, UPRIGHT V1, 40+ ms S IN I/aVL/V4/V5/V6] Compared to ECG 01/10/2023 14:28:35 Right bundle-branch block now present Intraventricular conduction delay no longer present Electronically Signed On 01-23-2023 20:55:41 CDT by Moisés De Los Santos M.D. [id number]
--- NOTE | 2023-01-22 13:47 | XRR_ITS ---
PROCEDURE INFORMATION: Exam: XR Chest Exam date and time: 01/22/2023 2:07 PM Age: 77 years old Clinical indication: Fever TECHNIQUE: Imaging protocol: Radiologic exam of the chest. Views: 1 view. COMPARISON: CT chest con [id number] 01/10/2023 1:42 PM FINDINGS: Lungs: There are hazy opacities in the left mid to lower lung field. Pleural spaces: Unremarkable. No pleural effusion. No pneumothorax. Heart/Mediastinum: Heart size not optimally evaluated with a single AP view of the chest. Bones/joints: Unremarkable. XR/XR chest 1V portable [id number] IMPRESSION: Hazy opacities in the left mid to lower lung field. Differential includes pneumonia and or scar tissue.
[2023-01-22 14:01] LABS: ABG PCO2 44.2 mmHg (35-45); ABG PH Result 7.42 (7.35-7.45); Arterial Blood Gas Hematocrit 34.7 % (42-52); Base Excess ABG 3.7 mmol/L (-2.0-2.0); Blood Gas Allen Test Pos; Blood Gas Operator Identificat WALCI; Blood Gas Sample Site Radial, left; Blood Gas Sample Type Arterial; HCO3 ABG 28.7 mmol/L (22-26); Oxygen Device ROOM AIR; PO2 ABG 62.2 mmHg (80.0-100.0)
[2023-01-22] MEDS: sodium chloride 0.9% 1,000 ML 999 ML IV ×3 (14:08→15:27)
[2023-01-22] MEDS: piperacillin-tazobactam 3.375 GM in sodium chloride 0.9% (plus) 50 ML IV ×2 (14:08→22:48)
[2023-01-22 14:10] LABS: Basophils # 0.1 10^3/uL (0.0-0.1); Basophils % 0.3 %; Eosinophils # 0.1 10^3/uL (0.0-0.8); Eosinophils % 0.3 %; Hematocrit 35.5 % (42.0-52.0); Hemoglobin 11.4 g/dL (11.7-16.6); Lymphocytes % 3.7 %; Mean Corpuscular HGB Conc 32.1 g/dL (30.0-36.0); Mean Corpuscular Hemoglobin 29.8 pg (28.0-34.0); Mean Corpuscular Volume 92.9 fl (80-94); Monocytes % 3.7 %; Neutrophils # 24.65 10^3/uL (1.8-7.7); Neutrophils % 91.5 %; Nucleated Red Blood Cells % 0 %; Platelet Count 246 10^3/cmm (130-400); Red Blood Count 3.82 10^6/uL (4.1-5.3); Red Cell Distribution Width 14.6 % (12.1-15.1); White Blood Count 26.9 10^3/uL (4.0-10.0)
--- NOTE | 2023-01-22 14:16 | W.ED.FEVER ---
HPI - Fever General: Chief Complaint: Fever Stated Complaint: fever, low O2 Time Seen by Provider: 01/22/23 13:38 History of Present Illness: 77-year-old male to emergency room by due to fever and cough. Patient described the cough as greenish sputum. Further reviews that he was recently admitted for pneumonia but improved after IV antibiotics and oral antibiotics. Upon present emergency room patient was found to be hypoxic on room air. Patient is coughing up blood, leg swelling, calf tenderness, secondary recent foreign travel. Associated symptoms: Deny abdominal pain, chills, chest pain, nausea or vomiting Review of Systems General: Reports: 10 or more systems reviewed and unremarkable except in HPI and below Const: Reports: fever(s); Denies: chills, body aches, change in appetite, change in weight or fatigue Card: Denies: chest pain, palpitations, irregular heart rhythm, edema or lightheadedness Resp: Reports: dyspnea and productive cough (Greenish sputum) GI: Denies: abdominal pain, nausea or vomiting Skin/Breast: Denies: rash, pruritus, erythema or photosensitivity PFSH ED PFSH: Medical History Anxiety Coronary artery disease Depression History of recurrent ear infection Hypertension Prostate cancer Had cryogenic process performed Sleep apnea Surgical History History of neck surgery History of surgery on upper extremity Hand Hx of colonoscopy with polypectomy Family History Father Stroke Social History Smoking and tobacco status: current every day smoker (0.5 ppd) cigarettes Years cigarettes smoked: 50 Quit status (tobacco): has tried quititng Second hand smoke exposure: No Smoking risk assessment/counseling performed?: Yes Alcohol intake: never Substance/Drug Use: never Lives independently: Yes Household members: spouse and family Marital status: service: Yes Current occupational status: retired Do you think of yourself as: Straight/Heterosexual Current gender identity: Male Physical Exam Const: COMMON NORMALS: no acute distress, average body habitus, patient oriented x3, no limitations, healthy appearing, alert and well nourished Neck/C-Spine: COMMON NORMALS: full ROM, no lymphadenopathy, supple, no meningeal signs, no JVD, Thyroid normal and No carotid bruits THYROID: Thyroid normal Lymph: LYMPHATIC: no lymphadenopathy noted Chest: COMMONS NORMALS: normal inspection of the chest, normal palpation of entire chest wall, normal inspection of the breasts and normal palpation of the breasts Breast/axilla inspection: Yes normal inspection of the breasts BREAST/AXILLA PALPATION: Yes normal palpation of the breasts Resp: AUSCULTATION: crackles Laterality: left, no wheezes, diminished lung sounds, no bronchial breath sounds, no egophony and no tactile fremitus Cardio: COMMON NORMALS: no JVD GI: COMMON NORMALS: Normal to inspection, nondistended, normoactive bowel sounds present, Soft to palpation, non-tender, No hepatosplenomegaly present, no masses and no bruits PALPATION: Yes Soft to palpation and Yes No hepatosplenomegaly present Neuro: COMMON NORMALS: patient oriented x3 SENSORIUM/ORIENTATION: Yes alert MENINGEAL SIGNS: Yes no meningeal signs Course Reevaluation(s): Reevaluation #1: spokw with hospitalist Dr. Cadet. Because lab findings with him and the x-ray finding. She will be admitted for further evaluation and treatment. Consultations: Consultation #1: Discussed patient with the hospitalist Vital Signs: Vital signs: Vital Signs Temperature 98.7 F 01/22/23 20:00 Pulse Rate 83 01/22/23 20:49 Respiratory Rate 16 01/22/23 20:49 Blood Pressure 113/68 01/22/23 20:00 Pulse Oximetry 93 01/22/23 20:49 Oxygen Delivery Me thod Nasal Cannula 01/22/23 20:49 Oxygen Flow Rate 2 01/22/23 20:49 MDM - Fever Medical Decision Making Patient made comfortable emergency room. X-ray, EKG and blood work were done. She was found to be hypoxic patient was placed on oxygen after ABG. Patient was given IV fluid and IV antibiotics. Discussed patient with the hospitalist. Because current disposition with patient and . Differential Diagnosis Likely small bowel obstruction (Pneumonia, CHF, acute MO, viral syndrome, electrolyte abnormalities, bronchitis ANNETTE) Lab Data 01/22/23 13:54 01/22/23 13:54 Radiology Impressions Chest X-Ray 01/22/23 13:47 IMPRESSION: Hazy opacities in the left mid to lower lung field. Differential includes pneumonia and or scar tissue. Chest CT 01/22/23 16:10 IMPRESSION: 1. Bilateral pneumonia. 2. Multivessel atherosclerotic disease which involves the coronary arteries. Laboratory Results WBC 26.9 10^3/uL (4.0-10.0) H 01/22/23 13:54 RBC 3.82 10^6/uL (4.1-5.3) L 01/22/23 13:54 Hgb 11.4 g/dL (11.7-16.6) L 01/22/23 13:54 Hct 35.5 % (42.0-52.0) L 01/22/23 13:54 MCV 92.9 fl (80-94) 01/22/23 13:54 MCH 29.8 pg (28.0-34.0) 01/22/23 13:54 MCHC 32.1 g/dL (30.0-36.0) 01/22/23 13:54 RDW 14.6 % (12.1-15.1) 01/22/23 13:54 Plt Count 246 10^3/cmm (130-400) 01/22/23 13:54 MPV 9.0 fL (7.4-10.4) 01/22/23 13:54 Neut % (Auto) 91.5 % 01/22/23 13:54 Lymph % (Auto) 3.7 % 01/22/23 13:54 [place] % (Auto) 3.7 % 01/22/23 13:54 Eos % (Auto) 0.3 % 01/22/23 13:54 Baso % (Auto) 0.3 % 01/22/23 13:54 Neut # (Auto) 24.65 10^3/uL (1.8-7.7) H 01/22/23 13:54 Lymph # (Auto) 1.0 10^3/uL (0.8-4.8) 01/22/23 13:54 [place] # (Auto) 1.0 10^3/uL (0.2-0.9) H 01/22/23 13:54 Eos # (Auto) 0.1 10^3/uL (0.0-0.8) 01/22/23 13:54 Baso # (Auto) 0.1 10^3/uL (0.0-0.1) 01/22/23 13:54 Nucleated RBC % (auto) 0 % 01/22/23 13:54 Nucleated RBCs # 0.0 /100WBC 01/22/23 13:54 Specimen Type Arterial 01/22/23 13:50 Sample Site Radial, left 01/22/23 13:50 ABG pH 7.42 (7.35-7.45) 01/22/23 13:50 ABG pCO2 44.2 mmHg (35-45) 01/22/23 13:50 ABG pO2 62.2 mmHg (80.0-100.0) L 01/22/23 13:50 ABG HCO3 28.7 mmol/L (22-26) H 01/22/23 13:50 ABG Base Excess 3.7 mmol/L (-2.0-2.0) H 01/22/23 13:50 [place] Test Pos 01/22/23 13:50 Hematocrit 34.7 % (42-52) L 01/22/23 13:50 O2 Delivery Device Room air 01/22/23 13:50 FiO2 21.0 % 01/22/23 13:50 [place] ID [place] 01/22/23 13:50 Sodium 135 mmol/L (136-145) L 01/22/23 13:54 Potassium 3.9 mmol/L (3.5-5.1) 01/22/23 13:54 Chloride 98 mmol/L (98-107) 01/22/23 13:54 Carbon Dioxide 27 mmol/L (22-29) 01/22/23 13:54 Anion Gap 13.9 (5-19) 01/22/23 13:54 BUN 15 mg/dL (8-23) 01/22/23 13:54 Creatinine 0.9 mg/dL (0.7-1.2) 01/22/23 13:54 GFR Calculation Not Reportable 01/22/23 13:54 Glucose 113 mg/dL (65-115) 01/22/23 13:54 Calculated Osmolality 282 mOsm/kg (285-295) L 01/22/23 13:54 Lactic Acid 2.4 mmol/L (0.5-2.2) H 01/22/23 13:54 Calcium 8.6 mg/dL (8.5-10.5) 01/22/23 13:54 Total Bilirubin 0.4 mg/dL (0.15-1.2) 01/22/23 13:54 AST 12 U/L (0-40) 01/22/23 13:54 ALT 15 U/L (0-41) 01/22/23 13:54 Alkaline Phosphatase 44 U/L (40-130) 01/22/23 13:54 Troponin T Baseline 12 ng/L (0-15) 01/22/23 13:54 C-Reactive Protein 18.2 mg/L (0.0-4.9) H 01/22/23 13:54 NT-Pro-B Natriuret Pep 129 pg/mL (0-450) 01/22/23 13:54 Total Protein 6.4 g/dL (6.6-8.7) L 01/22/23 13:54 Albumin 3.8 g/dL (3.5-5.2) 01/22/23 13:54 Globulin 2.6 g/dL (1.3-4.6) 01/22/23 13:54 Triglycerides 113 mg/dL (0-150) 01/22/23 13:54 Cholesterol 137 mg/dL (0-200) 01/22/23 13:54 LDL Cholesterol, Calc 66 mg/dL (50-129) 01/22/23 13:54 HDL Cholesterol 48 mg/dL (60-100) L 01/22/23 13:54 LDL/HDL Ratio 1.38 RATIO (0.00-3.22) 01/22/23 13:54 Cholesterol/HDL Ratio 2.85 mg/dL (1.0-5.00) 01/22/23 13:54 Procalcitonin 0.22 ng/mL (0-0.5) 01/22/23 13:54 TSH 2.58 uIU/mL (0.27-4.20) 01/22/23 13:54 Random Cortisol 20.54 ug/dL (2.47-19.5) H 01/22/23 13:54 EKG Data EKG 1: Interpretation: Rate of 87 sinus rhythm right bundle branch block. IA interval [address] depression in aVL V2 V1. Critical Care Time Critical Care Time: Critical Care Time: Yes Total Critical Care Time: 45 Attestation: Time spent discussing patient with hospitalist. Pain management patient and frequent reevaluation after treatment. Time spent discussing patient with family including his . Time spent reviewing previous charts. Discharge Plan Discharge Patient Disposition: Admitted As Inpatient Admit Provider: Aristeo Moser Clinical Impression: Hypoxia, Pneumonia, Leukocytosis Condition: Stable Coding Level of Care Code ED Cardiovascular Physician Assistant for Nick Soliz
[2023-01-22 14:36] LABS: Lactic Sepsis W/Reflex 2.4 mmol/L (0.5-2.2); Troponin(5th) Baseline 12 ng/L (0-15)
[2023-01-22 14:43] LABS: NT Pro B Type Natriuretic Pept 129 pg/mL (0-450); Procalcitonin 0.22 ng/mL (0-0.5)
--- NOTE | 2023-01-22 14:44 | PC.PHAR ---
PATIENT STATES HAS NEW RX FOR STIOLTO INHALER 2P ONCE DAILY. METHOCARBAMOL 750 IS 1 TABLET AT HS. MOMETASONE INHALER 2P BID. SPIRIVA IS DC'D.
[2023-01-22 14:54] LABS: Alanine Aminotransferase 15 U/L (0-41); Albumin Level 3.8 g/dL (3.5-5.2); Alkaline Phosphatase 44 U/L (40-130); Anion Gap 13.9 (5-19); Aspartate Amino Transferase 12 U/L (0-40); Blood Urea Nitrogen 15 mg/dL (8-23); Calcium 8.6 mg/dL (8.5-10.5); Carbon Dioxide 27 mmol/L (22-29); Chloride 98 mmol/L (98-107); Globulin 2.6 g/dL (1.3-4.6); Glucose 113 mg/dL (65-115); Osmolality Calculated 282 mOsm/kg (285-295); Potassium 3.9 mmol/L (3.5-5.1); Sodium 135 mmol/L (136-145); Total Bilirubin 0.4 mg/dL (0.15-1.2); Total Protein 6.4 g/dL (6.6-8.7)
[2023-01-22 15:02] LABS: Reflex Lactate Order REFLEX LACTIC ORDERD
[2023-01-22] MEDS: vancomycin 1,500 MG/300 ML PIGGYBACK 200 MG IV (15:26)
--- NOTE | 2023-01-22 16:10 | CTR_ITS ---
PROCEDURE INFORMATION: Exam: CT Chest Without Contrast; Diagnostic Exam date and time: 01/22/2023 4:51 PM Age: 77 years old Clinical indication: Fever and shortness of breath; Additional info: SOB TECHNIQUE: Imaging protocol: Diagnostic computed tomography of the chest without contrast. Radiation optimization: All CT scans at this facility use at least one of these dose optimization techniques: automated exposure control; mA and/or kV adjustment per patient size (includes targeted exams where dose is matched to clinical indication); or iterative reconstruction. REPORTING DATA: Count of CT and Cardiac NM exams in prior 12 months: This patient has received 2 known CTs and 0 known cardiac nuclear medicine studies in the 12 months prior to the current study. COMPARISON: CT chest con [id number] 01/10/2023 1:42 PM RADIATION DOSE METRICS: Total DLP (mGy-cm): 660.01 FINDINGS: Lungs: Multifocal patchy bilateral pulmonary opacities worsened on the right when compared to the prior study, consistent with bilateral pneumonia. Pleural spaces: Unremarkable. No pneumothorax. No pleural effusion. Heart: Unremarkable. No cardiomegaly. No pericardial effusion. Coronary arteries: Multivessel atherosclerotic disease which involves the coronary arteries. Lymph nodes: Unremarkable. No enlarged lymph nodes. Vasculature: Unremarkable. No aortic aneurysm. Bones/joints: There are diffuse enthesopathic changes consistent with benign diffuse idiopathic skeletal hyperostosis (DISH). Soft tissues: Unremarkable. CT/CT chest wo con [id number] IMPRESSION: 1. Bilateral pneumonia. 2. Multivessel atherosclerotic disease which involves the coronary arteries.
--- NOTE | 2023-01-22 16:12 | P.HP_ITS ---
Providers/Chief Complaint Admitting Physician: Aristeo Moser MD Primary Care Provider: Jessica Heredia MD Chief Complaint: fever, low O2 History of Present Illness Chirag Osman is a 77 year old male past medical history of recurrent aspiration, history of aspiration pneumonias, history of lung emphysema, history of pleural neoplasm, history of dysphagia, GERD small goiter, hypertension, CAD, sleep apnea who presents [facility] for shortness breath, fevers, chills, fatigue, malaise. Patient tells me that this morning he woke up having fevers, chills fatigue, malaise, shortness of breath productive cough yellow- green sputum. Does report lightheadedness, and dizziness. No nausea, no vomiting, no abdominal pain, no diarrhea. No chest pain or palpitations. 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, he is going to order another esophageal dilatation in 1 week Review of Systems Const: Reports: fever(s), chills, body aches and fatigue Eyes: Denies: change in vision Card: Denies: chest pain or palpitations Resp: Reports: dyspnea and productive cough GI: Denies: abdominal pain, nausea or vomiting : Denies: flank pain, difficulty urinating or dysuria Musc: Denies: neck pain or back pain Skin/Breast: Denies: rash Neuro: Denies: headache(s), numbness in extremities or weakness in extremities Psych: Denies: anxiety Medications/Allergies Home Medications Medication Instructions Recorded Confirmed Last Taken Type aspirin 81 mg tablet,delayed 81 mg PO BEDTIME 07/03/19 01/22/23 01/21/23 History release atorvastatin 80 mg tablet 80 mg PO BEDTIME 07/03/19 01/22/23 01/21/23 History multivitamin 1 tab PO QAM 07/03/19 01/22/23 01/22/23 History sulfasalazine 500 mg tablet 1,500 mg PO BID 07/03/19 01/22/23 01/21/23 History tamsulosin 0.4 mg capsule (Flomax) 0.8 mg PO BEDTIME 07/03/19 01/22/23 01/21/23 History sertraline 100 mg tablet 200 mg PO QAM 08/01/19 01/22/23 01/22/23 History omeprazole 20 mg tablet,delayed 40 mg PO QAM 04/20/22 01/22/23 01/22/23 History release trospium 20 mg tablet 20 mg PO BID 04/20/22 01/22/23 01/22/23 History fluticasone propionate 50 1 spray intranasal BID 08/16/22 01/22/23 01/22/23 History mcg/actuation nasal spray,suspension (Flonase Allergy Relief) isosorbide mononitrate 30 mg 45 mg PO QAM #135 tabs 08/16/22 01/22/23 01/22/23 Rx tablet,extended release 24 hr trazodone 100 mg tablet 300 mg PO BEDTIME 08/16/22 01/22/23 01/21/23 History acetaminophen 500 mg tablet 1,500 mg PO Q6H PRN Pain 12/10/22 01/22/23 01/22/23 History albuterol sulfate 90 mcg/actuation 1 inh inhalation QID PRN Shortness 12/10/22 01/22/23 01/22/23 History aerosol inhaler Of Breath ascorbic acid (vitamin C) 500 mg 1,000 mg PO QAM 12/10/22 01/22/23 01/22/23 History tablet (Vitamin C) bupropion HCl 300 mg 24 hr tablet, 150 mg PO QAM 12/10/22 01/22/23 01/22/23 History extended release (Wellbutrin XL) cetirizine 10 mg tablet (Zyrtec) 10 mg PO DAILY 12/10/22 01/22/23 01/22/23 History cholecalciferol (vitamin D3) 50 50 mcg PO DAILY 12/10/22 01/22/23 01/22/23 History mcg (2,000 unit) capsule (Vitamin D3) diclofenac sodium 1 % topical gel 2 g topical TID PRN Pain 12/10/22 01/22/23 Unknown History (Voltaren Arthritis Pain) hydrocortisone 2.5 % topical cream 1 applic topical QID PRN unknown 12/10/22 01/22/23 Unknown History methocarbamol 750 mg tablet 750 mg PO BEDTIME 12/10/22 01/22/23 01/21/23 History vgrapsjx-etuzod-NT-thonzonm 3.3 4 drp otic (ear) TID #10 mL 12/10/22 01/22/23 Unknown Rx mg-3 mg-10 mg-0.5 mg/mL ear drops,susp (Cortisporin-TC) nitroglycerin 0.4 mg sublingual 0.4 mg sublingual Q5M PRN Chest 12/10/22 01/22/23 Unknown History tablet (Nitrostat) Pain quetiapine 300 mg tablet (Seroquel) 150 mg PO BEDTIME 12/10/22 01/22/23 01/21/23 History fludrocortisone 0.1 mg tablet 0.05 mg PO DAILY 01/22/23 01/22/23 01/21/23 History tiotropium 2.5 mcg-olodaterol 2.5 2 inh inhalation DAILY 01/22/23 01/22/23 01/22/23 History mcg/actuation mist for inhalation (Stiolto Respimat) Allergies Allergy/AdvReac Type Severity Reaction Status Date / Time naproxen Allergy Severe lip Verified 01/19/23 08:34 swelling PFSH Acute PFSH: Medical History Anxiety Coronary artery disease Depression History of recurrent ear infection Hypertension Prostate cancer Had cryogenic process performed Sleep apnea Surgical History History of neck surgery History of surgery on upper extremity Hand Hx of colonoscopy with polypectomy Family History Father Stroke Social History Smoking and tobacco status: current every day smoker (0.5 ppd) cigarettes Years cigarettes smoked: 50 Quit status (tobacco): has tried quititng Second hand smoke exposure: No Smoking risk assessment/counseling performed?: Yes Alcohol intake: never Substance/Drug Use: never Lives independently: Yes Household members: spouse and family Marital status: service: Yes Current occupational status: retired Do you think of yourself as: Straight/Heterosexual Current gender identity: Male Vitals/I&O/Wt Last Vital Signs Temp 98.3 F 01/22/23 13:39 Pulse 79 01/22/23 16:00 Resp 28 H 01/22/23 13:39 BP 130/60 01/22/23 15:45 Pulse Ox 95 01/22/23 16:00 O2 Del Method Nasal Cannula 01/22/23 15:30 O2 Flow Rate 3 01/22/23 16:00 01/22/23 01/22/23 01/22/23 06:59 14:59 22:59 Intake Total 50 / 50 1000 / 1050 Balance 50 / 50 1000 / 1050 Weight last 48 hrs Weight 113.398 kg Physical Exam Const: COMMON NORMALS: no acute distress and patient oriented x3 GENERAL APPEARANCE: cooperative, well kempt and well developed HENMT: COMMON NORMALS: normocephalic, Normal external nose present and oropharynx normal HEAD & SCALP: normocephalic FACE & SINUS: normal facial exam NOSE: Normal external nose present Eye: COMMON NORMALS: Equal, round and reactive pupils present, EOMs intact bilaterally, conjunctivae normal and no scleral icterus CONJUNCTIVA: Yes conjunctivae normal PUPIL: Yes Equal, round and reactive pupils present Neck/C-Spine: COMMON NORMALS: full ROM, no JVD and Thyroid normal Chest: COMMONS NORMALS: normal inspection of the chest Resp: COMMON NORMALS: normal respiratory effort, No retractions and No use of accessory muscles AUSCULTATION: wheezes Cardio: COMMON NORMALS: no JVD, regular rate, regular rhythm, S1 normal heart sound present, S2 normal heart sound present, No murmurs present (Cardio) and Peripheral pulses 2+ throughout RATE: regular rate RHYTHM: regular rhythm HEART SOUNDS: S1 normal heart sound present and S2 normal heart sound present PERIPHERAL PULSES: Peripheral pulses 2+ throughout GI: COMMON NORMALS: Normal to inspection, nondistended, normoactive bowel sounds present, Soft to palpation and non-tender : BLADDER/KIDNEY EXAM: Yes no CVA tenderness Back/Pelvis: COMMON NORMALS: no CVA tenderness Extremity: COMMON NORMALS: normal to inspection, full ROM, capillary refill normal, no calf tenderness and no pedal edema Neuro: COMMON NORMALS: patient oriented x3, CN's II-XII intact bilaterally, moves all extremities, no focal motor deficits and no sensory deficits noted MENINGEAL SIGNS: Yes no meningeal signs Psych: COMMON NORMALS: mental status grossly normal, Normal thought process present, cooperative and speech normal APPEARANCE: Yes well kempt SPEECH: Yes normal speech THOUGHT PROCESS: Normal thought process present Skin: COMMON NORMALS: turgor normal and no jaundice GENERAL SKIN EXAM: turgor normal Data 01/22/23 13:54 01/22/23 13:54 Micro: Microbiology 01/22/23 13:54 Blood Culture - Preliminary Blood SPECIMEN COLLECTED 01/22/23 14:03 Blood Culture - Preliminary Blood SPECIMEN COLLECTED A&P Assessment and plan (1) Pneumonia: (2) Dysphagia: (3) Sleep apnea: (4) Hypertension: Qualifiers: Hypertension type: essential hypertension Qualified Code(s): I10 - Essential (primary) hypertension (5) Coronary artery disease: Qualifiers: Coronary Disease-Associated Artery/Lesion type: [place] artery [place] vs. transplanted heart: [place] heart Associated angina: with unspecified angina Qualified Code(s): I25.119 - Atherosclerotic heart disease of [place] coronary artery with unspecified angina pectoris (6) Pleural neoplasm: (7) Sprain of left rotator cuff capsule: (8) Emphysema lung: Qualifiers: Emphysema type: unspecified Qualified Code(s): J43.9 - Emphysema, u nspecified (9) Encounter for smoking cessation counseling: (10) Goals of care, counseling/discussion: (11) Elevated lactic acid level: Plan Pneumonia -Hypoxic, requiring 2 L -Continue monitoring respiratory status -Moved to general medical floors -CT chest -CRP -Respiratory viral panel -Follow sputum cultures, blood cultures -Continue vancomycin, Zosyn Smoking cessation counseling, advised to quit smoking Does have emphysema . Does have history of aspiration pneumonitis, dysphagia, aspiration precautions, speech therapy eval Elevated lactic acid, 2.4, received sepsis bolus, monitor History of Smith's esophagus History of hypertension History of CAD Attestations Medical Necessity Statement*: Patient requires hospitalization for pneumonia, hypoxia, inpatient, greater than 2 midnights Diagnoses Pneumonia J18.9 Dysphagia R13.10 Sleep apnea G47.30 Hypertension I10 Hypertension type: essential hypertension Coronary artery disease I25.119 Coronary Disease-Associated Artery/Lesion type: [place] artery [place] vs. transplanted heart: [place] heart Associated angina: with unspecified angina Pleural neoplasm D49.1 Sprain of left rotator cuff capsule S43.422A Emphysema lung J43.9 Emphysema type: unspecified Encounter for smoking cessation counseling Z71.6 Goals of care, counseling/discussion Z71.89 Elevated lactic acid level R79.89
[2023-01-22 16:20] LABS: Lactic Acid level (Lactate) 1.2 mmol/L (0.5-2.2)
[2023-01-22 17:00] LABS: Troponin 5 2HR 11.85 ng/L (0-15)
[2023-01-22 17:24] LABS: Troponin 5 2HR Delta -0.15 ABS# (0-10)
[2023-01-22 17:39] LABS: Add Urine Microscopic? NO; Charge for UA Resulting for Rev
[2023-01-22] MEDS: enoxaparin 40 mg/0.4 mL Syringe SUBCUT (17:55)
[2023-01-22] MEDS: dexamethasone 10 mg/mL INJ 6 MG IVP (17:55)
[2023-01-22] MEDS: pantoprazole 40 mg SDV IVP (17:55)
[2023-01-22 18:03] LABS: Bilirubin Urine Neg (Negative); Blood Urine Neg (Negative); Glucose Urine UA Norm (Normal); Ketones Urine Negative (Negative); Leukocyte Esterase Urine Negative (Negative); Nitrate Urine Negative (Negative); Protein Urine Neg (Negative); Urine Appearance Clear (CLEAR); Urine Color Straw (Yellow); Urobilinogen Urine Norm (Negative); pH Urine 7 (5-7)
[2023-01-22 18:08] LABS: Cortisol Random 20.54 ug/dL (2.47-19.5)
[2023-01-22 18:10] LABS: C Reactive Protein 18.2 mg/L (0.0-4.9); Chol HDL Ratio 2.85 mg/dL (1.0-5.00); Cholesterol 137 mg/dL (0-200); HDL Cholesterol 48 mg/dL (60-100); LDL Cholesterol Calculated 66 mg/dL (50-129); LDL HDL Ratio 1.38 RATIO (0.00-3.22); Thyroid Stimulating Hormone 2.58 uIU/mL (0.27-4.20); Triglycerides 113 mg/dL (0-150)
[2023-01-22 19:55] LABS: Adenovirus Not Detected (NOT DETECT); Chlamydia Pneumoniae Not Detected (NOT DETECT); Coronavirus 229E,HKU1,NL63,OC4 Not Detected (NOT DETECT); Human Metapneumovirus Not Detected (NOT DETECT); Human Rhinovirus/Enterovirus Not Detected (NOT DETECT); Influenza A Not Detected (NOT DETECT); Influenza A H1 Not Detected (NOT DETECT); Influenza A H1-2009 Not Detected (NOT DETECT); Influenza A H3 Not Detected (NOT DETECT); Influenza B Not Detected (NOT DETECT); Mycoplasma Pneumoniae Not Detected (NOT DETECT); Parainfluenza Virus Type 1 Not Detected (NOT DETECT); Parainfluenza Virus Type 2 Not Detected (NOT DETECT); Parainfluenza Virus Type 3 Not Detected (NOT DETECT); Parainfluenza Virus Type 4 Not Detected (NOT DETECT); Respiratory Syncytial Virus A Not Detected (NOT DETECT); Respiratory Syncytial Virus B Not Detected (NOT DETECT); SARS-COV-2 Not Detected (NOT DETECT)
[2023-01-22] MEDS: ipratropium-albuterol 3 mL Neb INHALATION (20:48)
[2023-01-22] MEDS: aspirin 81 mg EC Tablet PO (22:42)
[2023-01-22] MEDS: atorvastatin 40 mg Tablet 80 MG PO (22:43)
[2023-01-22] MEDS: quetiapine 100 mg Tablet 150 MG PO (22:44)
[2023-01-22] MEDS: trazodone 150 mg Tablet 300 MG PO (22:44)
[2023-01-22] MEDS: acetaminophen 325 mg Tablet 650 MG PO (22:46)
[2023-01-22] MEDS: tamsulosin 0.4 mg Capsule 0.8 MG PO (22:47)
[2023-01-22] MEDS: methocarbamol 750 mg Tablet PO (22:47)
[2023-01-22 23:07] LABS: Troponin 5 6HR 10.19 ng/L (0-15)
[2023-01-22 23:14] LABS: Troponin 5 6HR Delta -1.81 ng/L (0-12)
[2023-01-22 23:22] LABS: Estmated Average Glucose 103; Hemoglobin A1C 5.2 % (4.0-6.0)
[2023-01-23] VITALS (13 sets, daily range): BP systolic 94–126; BP diastolic 55–71; PULSE 63–79; RESP 16–18; TEMP 36.6–36.9; O2SAT 90–98
[2023-01-23] MEDS: vancomycin 1,500 MG/300 ML PIGGYBACK 200 MG IV ×2 (03:19→14:05)
[2023-01-23] MEDS: sertraline 100 mg Tablet 200 MG PO (05:29)
[2023-01-23] MEDS: isosorbide mononitrate ER 30 mg Tablet 45 MG PO (05:29)
[2023-01-23] MEDS: buPROPion XL (24 HR) 150 mg Tablet PO (05:29)
[2023-01-23 05:55] LABS: Basophils % 0.2 %; Eosinophils % 0.1 %; Hemoglobin 10.5 g/dL (11.7-16.6); Lymphocytes # 1.5 10^3/uL (0.8-4.8); Lymphocytes % 6.6 %; Mean Corpuscular HGB Conc 31.8 g/dL (30.0-36.0); Mean Corpuscular Hemoglobin 29.9 pg (28.0-34.0); Mean Platelet Volume 8.8 fL (7.4-10.4); Monocytes # 0.6 10^3/uL (0.2-0.9); Monocytes % 2.7 %; Neutrophils # 19.86 10^3/uL (1.8-7.7); Neutrophils % 89.9 %; Nucleated Red Blood Cells % 0 %; Platelet Count 225 10^3/cmm (130-400); Red Blood Count 3.51 10^6/uL (4.1-5.3); Red Cell Distribution Width 14.7 % (12.1-15.1); White Blood Count 22.1 10^3/uL (4.0-10.0)
[2023-01-23 06:11] LABS: Lactic Sepsis W/Reflex 0.9 mmol/L (0.5-2.2)
[2023-01-23] MEDS: piperacillin-tazobactam 3.375 GM in sodium chloride 0.9% (plus) 50 ML IV ×3 (06:14→22:31)
[2023-01-23 06:16] LABS: Alanine Aminotransferase 13 U/L (0-41); Albumin Level 3.4 g/dL (3.5-5.2); Alkaline Phosphatase 42 U/L (40-130); Anion Gap 11.3 (5-19); Aspartate Amino Transferase 11 U/L (0-40); Blood Urea Nitrogen 12 mg/dL (8-23); Calcium 8.1 mg/dL (8.5-10.5); Carbon Dioxide 26 mmol/L (22-29); Chloride 105 mmol/L (98-107); Globulin 2.5 g/dL (1.3-4.6); Glucose 111 mg/dL (65-115); Osmolality Calculated 286 mOsm/kg (285-295); Phosphorus 3.2 mg/dL (2.5-4.5); Potassium 4.3 mmol/L (3.5-5.1); Sodium 138 mmol/L (136-145); Total Bilirubin 0.6 mg/dL (0.15-1.2); Total Protein 5.9 g/dL (6.6-8.7)
[2023-01-23] MEDS: fludrocortisone 0.1 mg Tablet 0.05 MG PO (08:06)
[2023-01-23] MEDS: ipratropium-albuterol 3 mL Neb INHALATION ×3 (08:15→20:36)
[2023-01-23 11:48] LABS: Glucose Point of Care 125 mg/dL (70-110)
--- NOTE | 2023-01-23 16:33 | PM.PN ---
Subjective Subjective: Patient was seen this morning, at bedside, he tells me that he has not had any fevers overnight but continues to have chills, fatigue, malaise, nausea, vomiting has a poor appetite Vitals/I&O/Wt Last Vital Signs Temp 97.9 F 01/23/23 16:00 Pulse 71 01/23/23 16:00 Resp 17 01/23/23 16:00 BP 110/62 01/23/23 16:00 Pulse Ox 98 01/23/23 16:00 O2 Del Method Nasal Cannula 01/23/23 16:00 O2 Flow Rate 2 01/23/23 16:00 01/23/23 01/23/23 01/23/23 06:59 14:59 22:59 Intake Total 350 / 3700 770 / 770 300 / 1070 Output Total 550 / 1025 1150 / 1150 Balance -200 / 2675 -380 / -380 300 / -80 Weight last 48 hrs Weight 113.398 kg Physical Exam Const: COMMON NORMALS: no acute distress and patient oriented x3 Resp: COMMON NORMALS: normal respiratory effort, No retractions and No use of accessory muscles AUSCULTATION: crackles and wheezes Cardio: COMMON NORMALS: regular rate, regular rhythm, S1 normal heart sound present and S2 normal heart sound present RATE: regular rate RHYTHM: regular rhythm HEART SOUNDS: S1 normal heart sound present and S2 normal heart sound present GI: COMMON NORMALS: Normal to inspection, nondistended, normoactive bowel sounds present and non-tender Extremity: COMMON NORMALS: no pedal edema Neuro: COMMON NORMALS: patient oriented x3 Psych: COMMON NORMALS: mental status grossly normal Data 01/23/23 05:41 01/23/23 05:41 Micro: Microbiology 01/22/23 13:54 Blood Culture - Preliminary Blood NEGATIVE TO DATE 01/22/23 14:03 Blood Culture - Preliminary Blood NEGATIVE TO DATE 01/22/23 18:00 Bacterial Antigens - Final Urine,Voided A&P Assessment and plan (1) Pneumonia: (2) Dysphagia: (3) Sleep apnea: (4) Hypertension: Qualifiers: Hypertension type: essential hypertension Qualified Code(s): I10 - Essential (primary) hypertension (5) Coronary artery disease: Qualifiers: Coronary Disease-Associated Artery/Lesion type: [place] artery [place] vs. transplanted heart: [place] heart Associated angina: with unspecified angina Qualified Code(s): I25.119 - Atherosclerotic heart disease of [place] coronary artery with unspecified angina pectoris (6) Pleural neoplasm: (7) Sprain of left rotator cuff capsule: (8) Emphysema lung: Qualifiers: Emphysema type: unspecified Qualified Code(s): J43.9 - Emphysema, unspecified (9) Encounter for smoking cessation counseling: (10) Goals of care, counseling/discussion: (11) Elevated lactic acid level: Plan Bilateral pneumonia CT of the chest Lungs: Multifocal patchy bilateral pulmonary opacities worsened on the right when compared to the prior study, consistent with bilateral pneumonia. -Hypoxic, requiring 2 L -Continue monitoring respiratory status -Moved to general medical floors -Follow sputum cultures, blood cultures -Continue vancomycin, and Zosyn Smoking cessation counseling, advised to quit smoking Does have emphysema . Does have history of aspiration pneumonitis, dysphagia, aspiration precautions, speech therapy eval Elevated lactic acid, 2.4, received sepsis bolus, monitor History of Smith's esophagus History of hypertension History of CAD Spoke to nursing staff, spoke to patient, spoke to patient's , Attestations Medical Necessity Statement*: Patient requires hospitalization, inpatient, greater than 2 midnights for bilateral pneumonia Diagnoses Pneumonia J18.9 Dysphagia R13.10 Sleep apnea G47.30 Hypertension I10 Hypertension type: essential hypertension Coronary artery disease I25.119 Coronary Disease-Associated Artery/Lesion type: [place] artery [place] vs. transplanted heart: [place] heart Associated angina: with unspecified angina Pleural neoplasm D49.1 Sprain of left rotator cuff capsule S43.422A Emphysema lung J43.9 Emphysema type: unspecified Encounter for smoking cessation counseling Z71.6 Goals of care, counseling/discussion Z71.89 Elevated lactic acid level R79.89
[2023-01-23] MEDS: dexamethasone 10 mg/mL INJ 6 MG IVP (17:32)
[2023-01-23] MEDS: pantoprazole 40 mg SDV IVP (17:32)
[2023-01-23] MEDS: enoxaparin 40 mg/0.4 mL Syringe SUBCUT (18:16)
[2023-01-23] MEDS: aspirin 81 mg EC Tablet PO (20:14)
[2023-01-23] MEDS: trazodone 150 mg Tablet 300 MG PO (20:14)
[2023-01-23] MEDS: tamsulosin 0.4 mg Capsule 0.8 MG PO (20:14)
[2023-01-23] MEDS: atorvastatin 40 mg Tablet 80 MG PO (20:14)
[2023-01-23] MEDS: quetiapine 100 mg Tablet 150 MG PO (20:14)
[2023-01-23] MEDS: methocarbamol 750 mg Tablet PO (20:15)
[2023-01-23] MEDS: acetaminophen 325 mg Tablet 650 MG PO (22:30)
[2023-01-24] VITALS (12 sets, daily range): BP systolic 120–148; BP diastolic 68–79; PULSE 62–74; RESP 16–19; TEMP 36.4–36.9; O2SAT 93–99
[2023-01-24 02:20] LABS: Basophils % 0.2 %; Eosinophils % 0.1 %; Hematocrit 31.7 % (42.0-52.0); Hemoglobin 9.4 g/dL (11.7-16.6); Lymphocytes # 0.8 10^3/uL (0.8-4.8); Lymphocytes % 6.5 %; Mean Corpuscular HGB Conc 29.7 g/dL (30.0-36.0); Mean Corpuscular Hemoglobin 30.1 pg (28.0-34.0); Mean Corpuscular Volume 101.6 fl (80-94); Mean Platelet Volume 9.6 fL (7.4-10.4); Monocytes # 0.4 10^3/uL (0.2-0.9); Monocytes % 3.2 %; Neutrophils # 11.68 10^3/uL (1.8-7.7); Neutrophils % 89.6 %; Nucleated Red Blood Cells % 0 %; Platelet Count 208 10^3/cmm (130-400); Red Blood Count 3.12 10^6/uL (4.1-5.3); Red Cell Distribution Width 15.3 % (12.1-15.1)
[2023-01-24 02:37] LABS: Alanine Aminotransferase 12 U/L (0-41); Albumin Level 3.1 g/dL (3.5-5.2); Alkaline Phosphatase 33 U/L (40-130); Anion Gap 13.6 (5-19); Blood Urea Nitrogen 14 mg/dL (8-23); Calcium 8.3 mg/dL (8.5-10.5); Carbon Dioxide 24 mmol/L (22-29); Chloride 105 mmol/L (98-107); Globulin 2.9 g/dL (1.3-4.6); Glucose 116 mg/dL (65-115); Osmolality Calculated 287 mOsm/kg (285-295); Phosphorus 2.4 mg/dL (2.5-4.5); Potassium 4.6 mmol/L (3.5-5.1); Sodium 138 mmol/L (136-145); Total Bilirubin 0.3 mg/dL (0.15-1.2)
[2023-01-24 02:38] LABS: Aspartate Amino Transferase 15 U/L (0-40); Vancomycin Trough 14.3 ug/mL (10-15)
[2023-01-24] MEDS: vancomycin 1,500 MG/300 ML PIGGYBACK 200 MG IV ×2 (03:58→13:56)
[2023-01-24] MEDS: piperacillin-tazobactam 3.375 GM in sodium chloride 0.9% (plus) 50 ML IV ×3 (06:20→22:55)
[2023-01-24] MEDS: buPROPion XL (24 HR) 150 mg Tablet PO (06:22)
[2023-01-24] MEDS: isosorbide mononitrate ER 30 mg Tablet 45 MG PO (06:22)
[2023-01-24] MEDS: sertraline 100 mg Tablet 200 MG PO (06:23)
[2023-01-24] MEDS: ipratropium-albuterol 3 mL Neb INHALATION ×4 (07:37→21:34)
--- NOTE | 2023-01-24 15:51 | PM.PN ---
Subjective Subjective: - Patient was seen this morning -Afebrile overnight, normotensive, on 2 L -Sitting up in a chair -Patient tells me that he feels better but continues to feel weak and fatigued -Has a cough, no shortness of breath, chills have improved -He wanted me to speak to his , I met his outside his door, she was bringing him back some water, discussed patient's pneumonia, clinical improvement, she is worried about him going home too soon, will continue to monitor, follow cultures Vitals/I&O/Wt Last Vital Signs Temp 97.5 F L 01/24/23 12:00 Pulse 67 01/24/23 14:00 Resp 16 01/24/23 12:00 BP 126/79 01/24/23 12:00 Pulse Ox 95 01/24/23 12:00 O2 Del Method Room Air 01/24/23 11:04 O2 Flow Rate 2 01/24/23 11:04 01/24/23 01/24/23 01/24/23 06:59 14:59 22:59 Intake Total 350 / 1950 650 / 650 300 / 950 Balance 350 / 800 650 / 650 300 / 950 Physical Exam Const: COMMON NORMALS: no acute distress and patient oriented x3 Resp: COMMON NORMALS: normal respiratory effort, No retractions, No use of accessory muscles and clear to auscultation bilaterally AUSCULTATION: clear to auscultation bilaterally Cardio: COMMON NORMALS: regular rate, regular rhythm, S1 normal heart sound present and S2 normal heart sound present RATE: regular rate RHYTHM: regular rhythm HEART SOUNDS: S1 normal heart sound present and S2 normal heart sound present GI: COMMON NORMALS: Normal to inspection, nondistended, normoactive bowel sounds present and non-tender Extremity: COMMON NORMALS: no pedal edema Neuro: COMMON NORMALS: patient oriented x3 Psych: COMMON NORMALS: mental status grossly normal Data 01/24/23 02:00 01/24/23 02:00 Micro: Microbiology 01/22/23 19:15 Gram Stain - Final Sputum - Expectorated Sputum Sputum Culture - Preliminary 01/22/23 13:54 Blood Culture - Preliminary Blood NEGATIVE TO DATE 01/22/23 14:03 Blood Culture - Preliminary Blood NEGATIVE TO DATE A&P Assessment and plan (1) Pneumonia: (2) Dysphagia: (3) Sleep apnea: (4) Hypertension: Qualifiers: Hypertension type: essential hypertension Qualified Code(s): I10 - Essential (primary) hypertension (5) Coronary artery disease: Qualifiers: Coronary Disease-Associated Artery/Lesion type: [place] artery [place] vs. transplanted heart: [place] heart Associated angina: with unspecified angina Qualified Code(s): I25.119 - Atherosclerotic heart disease of [place] coronary artery with unspecified angina pectoris (6) Pleural neoplasm: (7) Sprain of left rotator cuff capsule: (8) Emphysema lung: Qualifiers: Emphysema type: unspecified Qualified Code(s): J43.9 - Emphysema, unspecified (9) Encounter for smoking cessation counseling: (10) Goals of care, counseling/discussion: (11) Elevated lactic acid level: Plan Bilateral pneumonia CT of the chest Lungs: Multifocal patchy bilateral pulmonary opacities worsened on the right when compared to the prior study, consistent with bilateral pneumonia. -Hypoxic, requiring 2 L -Continue monitoring respiratory status -Moved to general medical floors -Follow sputum cultures so far mixed normal [place], blood cultures so far no growth -Continue vancomycin, and Zosyn Smoking cessation counseling, advised to quit smoking Does have emphysema . Does have history of aspiration pneumonitis, dysphagia, aspiration precautions, speech therapy eval Elevated lactic acid, resolved History of Smith's esophagus History of hypertension History of CAD Spoke to nursing staff, spoke to patient, spoke to patient's , Attestations Medical Necessity Statement*: Patient requires hospitalization for bilateral pneumonia, on 2 L, leukocytosis of 13, likely discharge in next 24 hours Diagnoses Pneumonia J18.9 Dysphagia R13.10 Sleep apnea G47.30 Hypertension I10 Hypertension type: essential hypertension Coronary artery disease I25.119 Coronary Disease-Associated Artery/Lesion type: [place] artery [place] vs. transplanted heart: [place] heart Associated angina: with unspecified angina Pleural neoplasm D49.1 Sprain of left rotator cuff capsule S43.422A Emphysema lung J43.9 Emphysema type: unspecified Encounter for smoking cessation counseling Z71.6 Goals of care, counseling/discussion Z71.89 Elevated lactic acid level R79.89
[2023-01-24] MEDS: pantoprazole 40 mg SDV IVP (18:04)
[2023-01-24] MEDS: dexamethasone 10 mg/mL INJ 6 MG IVP (18:04)
[2023-01-24] MEDS: enoxaparin 40 mg/0.4 mL Syringe SUBCUT (18:04)
[2023-01-24] MEDS: trazodone 150 mg Tablet 300 MG PO (21:00)
[2023-01-24] MEDS: methocarbamol 750 mg Tablet PO (21:00)
[2023-01-24] MEDS: atorvastatin 40 mg Tablet 80 MG PO (21:00)
[2023-01-24] MEDS: tamsulosin 0.4 mg Capsule 0.8 MG PO (21:00)
[2023-01-24] MEDS: acetaminophen 325 mg Tablet 650 MG PO (21:00)
[2023-01-24] MEDS: quetiapine 100 mg Tablet 150 MG PO (21:00)
[2023-01-24] MEDS: aspirin 81 mg EC Tablet PO (21:01)
[2023-01-25] VITALS (12 sets, daily range): BP systolic 110–123; BP diastolic 68–75; PULSE 59–85; RESP 14–18; TEMP 36.4–36.9; O2SAT 88–97
[2023-01-25] MEDS: vancomycin 1,500 MG/300 ML PIGGYBACK 200 MG IV (03:38)
[2023-01-25] MEDS: sertraline 100 mg Tablet 200 MG PO (06:17)
[2023-01-25] MEDS: buPROPion XL (24 HR) 150 mg Tablet PO (06:17)
[2023-01-25] MEDS: isosorbide mononitrate ER 30 mg Tablet 45 MG PO (06:17)
[2023-01-25] MEDS: piperacillin-tazobactam 3.375 GM in sodium chloride 0.9% (plus) 50 ML IV (06:18)
[2023-01-25] MEDS: ipratropium-albuterol 3 mL Neb INHALATION ×3 (08:14→15:37)
[2023-01-25 08:30] LABS: Basophils % 0.3 %; Eosinophils # 0.2 10^3/uL (0.0-0.8); Eosinophils % 1.6 %; Hematocrit 31.7 % (42.0-52.0); Lymphocytes # 1.6 10^3/uL (0.8-4.8); Mean Corpuscular HGB Conc 31.5 g/dL (30.0-36.0); Mean Corpuscular Hemoglobin 29.8 pg (28.0-34.0); Mean Corpuscular Volume 94.3 fl (80-94); Mean Platelet Volume 9.2 fL (7.4-10.4); Monocytes # 0.4 10^3/uL (0.2-0.9); Monocytes % 4.2 %; Neutrophils # 8.24 10^3/uL (1.8-7.7); Neutrophils % 78.4 %; Nucleated Red Blood Cells % 0 %; Platelet Count 229 10^3/cmm (130-400); Red Blood Count 3.36 10^6/uL (4.1-5.3); Red Cell Distribution Width 14.9 % (12.1-15.1); White Blood Count 10.5 10^3/uL (4.0-10.0)
[2023-01-25 09:12] LABS: Alanine Aminotransferase 11 U/L (0-41); Albumin Level 3.6 g/dL (3.5-5.2); Alkaline Phosphatase 35 U/L (40-130); Anion Gap 14.2 (5-19); Aspartate Amino Transferase 9 U/L (0-40); Blood Urea Nitrogen 9 mg/dL (8-23); Calcium 8.8 mg/dL (8.5-10.5); Carbon Dioxide 26 mmol/L (22-29); Chloride 106 mmol/L (98-107); Globulin 2.2 g/dL (1.3-4.6); Glucose 99 mg/dL (65-115); Magnesium 1.9 mg/dL (1.7-2.3); Osmolality Calculated 293 mOsm/kg (285-295); Phosphorus 3.6 mg/dL (2.5-4.5); Potassium 4.2 mmol/L (3.5-5.1); Sodium 142 mmol/L (136-145); Total Bilirubin 0.4 mg/dL (0.15-1.2); Total Protein 5.8 g/dL (6.6-8.7)
[2023-01-25] MEDS: fludrocortisone 0.1 mg Tablet 0.05 MG PO (09:34)
--- NOTE | 2023-01-25 10:07 | PC.CHAP ---
Pastoral Care Encounter/Spiritual Assessment Type of Contact [] Declined photographer news visit [] Patient/Family/Request visit [] Outpatient visit [] Follow-up visit [] Physician referral [] Code/Alert [x] Routine visit [] Staff referral [] Actively dying [] Patient sleeping [] Family support [] [] Out of room [] Palliative care [] [] Receiving care in room [] Pre-surgical visit [] Trauma [] Long length of stay [] ICU visit [] Other: Relational/Emotional Strength [x] Patient feels connected with others/family/visitors/staff [] Distress [] Loneliness/isolation [] Abandonment Spirituality of Patient [x] Person of Janice [] Attends Adventism of their Jnaice [x] Believes in Prayer [] Reads Bible or Voodoo materials [] There are Spiritual issues to be addressed Insulation Manager Interventions [x] Prayer [x] Active listening [] Non-anxious presence [x] Spiritual/emotional support [] Crisis/trauma care [] Spiritual counseling [] Bereavement support [] Provided bereavement packet [] Provided Bible/devotional materials [] Provided toy/stuffed animal, coloring book to patient or family member [] Provided Communion [] Anointing/Serafina [] Salvation [x] Completed spiritual assessment [] Other: Impact on Illness or Injury [] Angry [] Fearful [] Anxious [] Often cries [] Exhaustion [] Unable to work [] Unable to attend hinduism [] Unable to walk/stand [] Unable to read [] Unable to drive [] Unable to eat/drink [] Unable to sleep [] Unable to be with family [] Patient intubated [] Other: Summary Time spent with patient 5 min
--- NOTE | 2023-01-25 10:31 | P.DS_ITS ---
Discharge Providers Date of Admission: 01/22/23 15:21 Date of Discharge: January 25, 2023 Attending Provider at Admission: Aristeo Moser MD Attending Provider at Discharge: Aristeo Moser MD Primary Care Provider: Jessica Heredia MD Diagnoses at Discharge Discharge Diagnosis (1) Pneumonia: Status: Acute (2) Dysphagia: Status: Acute (3) Sleep apnea: Status: Acute (4) Hypertension: Status: Acute Qualifiers: Hypertension type: essential hypertension Qualified Code(s): I10 - Essential (primary) hypertension (5) Coronary artery disease: Status: Acute Qualifiers: Coronary Disease-Associated Artery/Lesion type: [place] artery [place] vs. transplanted heart: [place] heart Associated angina: with unspecified angina Qualified Code(s): I25.119 - Atherosclerotic heart disease of [place] coronary artery with unspecified angina pectoris (6) Pleural neoplasm: Status: Acute (7) Sprain of left rotator cuff capsule: Status: Acute (8) Emphysema lung: Status: Acute Qualifiers: Emphysema type: unspecified Qualified Code(s): J43.9 - Emphysema, unspecified (9) Encounter for smoking cessation counseling: Status: Acute (10) Goals of care, counseling/discussion: Status: Acute (11) Elevated lactic acid level: Status: Acute Reason for Visit Reason for Visit: fever, low O2 Hospital Course Hospital Course Chirag Osman is a 77 year old male past medical history of recurrent aspiration, history of aspiration pneumonias, history of lung emphysema, history of pleural neoplasm, history of dysphagia, GERD small goiter, hypertension, CAD, sleep apnea who presents [facility] for shortness breath, fevers, chills, fatigue, malaise.? Patient tells me that this morning he woke up having fevers, chills fatigue, malaise, shortness of breath productive cough yellow- green sputum.? Does report lightheadedness, and dizziness.? No nausea, no vomiting, no abdominal pain, no diarrhea.? No chest pain or palpitations.? 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, he is going to order another esophageal dilatation in 1 week This is a 77-year-old male who was admitted to [facility] for bilateral pneumonia, requiring broad-spectrum antibiotic therapy, overall clinically improved, discharged on 5 remaining days of Augmentin, 5 remaining days of prednisone, follow-up with pulmonary as outpatient, discharged on 2 L Physical Exam Const: COMMON NORMALS: no acute distress and patient oriented x3 Resp: COMMON NORMALS: normal respiratory effort, No retractions, No use of accessory muscles and clear to auscultation bilaterally AUSCULTATION: clear to auscultation bilaterally Cardio: COMMON NORMALS: regular rate, regular rhythm, S1 normal heart sound present and S2 normal heart sound present RATE: regular rate RHYTHM: regular rhythm HEART SOUNDS: S1 normal heart sound present and S2 normal heart sound present GI: COMMON NORMALS: Normal to inspection, nondistended, normoactive bowel sounds present and non-tender Extremity: COMMON NORMALS: no pedal edema Neuro: COMMON NORMALS: patient oriented x3 Psych: COMMON NORMALS: mental status grossly normal Discharge Data Studies Completed and Pending Completed Studies During Hospitalization Category Date Time Status CT chest wo con [id number] Stat Cat Scan 01/22/23 16:10 Completed XR chest 1V portable [id number] Stat Exams 01/22/23 13:47 Completed Pending at discharge Category Date Time Status Blood Culture Stat Lab 01/22/23 14:03 Results Sputum Culture and Gram Stain Stat Lab 01/22/23 19:15 Results Radiology Impressions Chest X-Ray 01/22/23 13:47 IMPRESSION: Hazy opacities in the left mid to lower lung field. Differential includes pneumonia and or scar tissue. Chest CT 01/22/23 16:10 IMPRESSION: 1. Bilateral pneumonia. 2. Multivessel atherosclerotic disease which involves the coronary arteries. Laboratory Results WBC 10.5 10^3/uL (4.0-10.0) H 01/25/23 08:03 Corrected WBC Cancelled 01/25/23 05:55 RBC 3.36 10^6/uL (4.1-5.3) L 01/25/23 08:03 Hgb 10.0 g/dL (11.7-16.6) L 01/25/23 08:03 Hct 31.7 % (42.0-52.0) L 01/25/23 08:03 MCV 94.3 fl (80-94) H 01/25/23 08:03 MCH 29.8 pg (28.0-34.0) 01/25/23 08:03 MCHC 31.5 g/dL (30.0-36.0) 01/25/23 08:03 RDW 14.9 % (12.1-15.1) 01/25/23 08:03 Plt Count 229 10^3/cmm (130-400) 01/25/23 08:03 MPV 9.2 fL (7.4-10.4) 01/25/23 08:03 Gran % Cancelled 01/25/23 05:55 Neut % (Auto) 78.4 % 01/25/23 08:03 Lymph % (Auto) 15.0 % 01/25/23 08:03 [place] % (Auto) 4.2 % 01/25/23 08:03 Eos % (Auto) 1.6 % 01/25/23 08:03 Baso % (Auto) 0.3 % 01/25/23 08:03 Neut # (Auto) 8.24 10^3/uL (1.8-7.7) H 01/25/23 08:03 Lymph # (Auto) 1.6 10^3/uL (0.8-4.8) 01/25/23 08:03 [place] # (Auto) 0.4 10^3/uL (0.2-0.9) 01/25/23 08:03 Eos # (Auto) 0.2 10^3/uL (0.0-0.8) 01/25/23 08:03 Baso # (Auto) 0.0 10^3/uL (0.0-0.1) 01/25/23 08:03 Absolute Gran (auto) Cancelled 01/25/23 05:55 Nucleated RBC % (auto) 0 % 01/25/23 08:03 Nucleated RBCs # 0.0 /100WBC 01/25/23 08:03 Specimen Type Arterial 01/22/23 13:50 Sample Site Radial, left 01/22/23 13:50 ABG pH 7.42 (7.35-7.45) 01/22/23 13:50 ABG pCO2 44.2 mmHg (35-45) 01/22/23 13:50 ABG pO2 62.2 mmHg (80.0-100.0) L 01/22/23 13:50 ABG HCO3 28.7 mmol/L (22-26) H 01/22/23 13:50 ABG Base Excess 3.7 mmol/L (-2.0-2.0) H 01/22/23 13:50 [place] Test Pos 01/22/23 13:50 Hematocrit 34.7 % (42-52) L 01/22/23 13:50 O2 Delivery Device Room air 01/22/23 13:50 FiO2 21.0 % 01/22/23 13:50 Door Opener ID [place] 01/22/23 13:50 Sodium 142 mmol/L (136-145) 01/25/23 08:03 Potassium 4.2 mmol/L (3.5-5.1) 01/25/23 08:03 Chloride 106 mmol/L (98-107) 01/25/23 08:03 Carbon Dioxide 26 mmol/L (22-29) 01/25/23 08:03 Anion Gap 14.2 (5-19) 01/25/23 08:03 BUN 9 mg/dL (8-23) 01/25/23 08:03 Creatinine 0.7 mg/dL (0.7-1.2) 01/25/23 08:03 GFR Calculation Not Reportable 01/25/23 08:03 Glucose 99 mg/dL (65-115) 01/25/23 08:03 POC Glucose 125 mg/dL (70-110) H 01/23/23 10:58 Estimat Average Glucose 103 01/22/23 13:54 Hemoglobin A1c 5.2 % (4.0-6.0) 01/22/23 13:54 Calculated Osmolality 293 mOsm/kg (285-295) 01/25/23 08:03 Lactic Acid 0.9 mmol/L (0.5-2.2) 01/23/23 05:41 Lactic Acid (Sepsis) 1.2 mmol/L (0.5-2.2) 01/22/23 15:51 Calcium 8.8 mg/dL (8.5-10.5) 01/25/23 08:03 Phosphorus 3.6 mg/dL (2.5-4.5) 01/25/23 08:03 Magnesium 1.9 mg/dL (1.7-2.3) 01/25/23 08:03 Total Bilirubin 0.4 mg/dL (0.15-1.2) 01/25/23 08:03 AST 9 U/L (0-40) 01/25/23 08:03 ALT 11 U/L (0-41) 01/25/23 08:03 Alkaline Phosphatase 35 U/L (40-130) L 01/25/23 08:03 Troponin T Baseline 12 ng/L (0-15) 01/22/23 13:54 Troponin T 120 Minute 11.85 ng/L (0-15) 01/22/23 16:27 Delta Troponin T -0.15 ABS# (0-10) L 01/22/23 16:27 Troponin T Hi Sens 6Hr 10.19 ng/L (0-15) 01/22/23 21:58 Troponin T Hi Sens 6Hr Delta -1.81 ng/L (0-12) L 01/22/23 21:58 C-Reactive Protein 18.2 mg/L (0.0-4.9) H 01/22/23 13:54 NT-Pro-B Natriuret Pep 129 pg/mL (0-450) 01/22/23 13:54 Total Protein 5.8 g/dL (6.6-8.7) L 01/25/23 08:03 Albumin 3.6 g/dL (3.5-5.2) 01/25/23 08:03 Globulin 2.2 g/dL (1.3-4.6) 01/25/23 08:03 Triglycerides 113 mg/dL (0-150) 01/22/23 13:54 Cholesterol 137 mg/dL (0-200) 01/22/23 13:54 LDL Cholesterol, Calc 66 mg/dL (50-129) 01/22/23 13:54 HDL Cholesterol 48 mg/dL (60-100) L 01/22/23 13:54 LDL/HDL Ratio 1.38 RATIO (0.00-3.22) 01/22/23 13:54 Cholesterol/HDL Ratio 2.85 mg/dL (1.0-5.00) 01/22/23 13:54 Procalcitonin 0.22 ng/mL (0-0.5) 01/22/23 13:54 TSH 2.58 uIU/mL (0.27-4.20) 01/22/23 13:54 Random Cortisol 20.54 ug/dL (2.47-19.5) H 01/22/23 13:54 Urine Color Straw (Yellow) 01/22/23 15:44 Urine Appearance Clear (CLEAR) 01/22/23 15:44 Urine pH 7 (5-7) 01/22/23 15:44 Ur Specific [place] 1.000 (1.005-1.030) L 01/22/23 15:44 Urine Protein Neg (Negative) 01/22/23 15:44 Urine Glucose (UA) Norm (Normal) 01/22/23 15:44 Urine Ketones Negative (Negative) 01/22/23 15:44 Urine Blood Neg (Negative) 01/22/23 15:44 Urine Nitrate Negative (Negative) 01/22/23 15:44 Urine Bilirubin Neg (Negative) 01/22/23 15:44 Urine Urobilinogen Norm mg/dL (Negative) 01/22/23 15:44 Ur Leukocyte Esterase Negative (Negative) 01/22/23 15:44 Nasal Influ A H1 2009 PCR Not detected (NOT DETECT) 01/22/23 18:00 Vancomycin Trough 14.3 ug/mL (10-15) 01/24/23 02:00 Adenovirus (PCR) Not detected (NOT DETECT) 01/22/23 18:00 C. pneumoniae DNA (PCR) Not detected (NOT DETECT) 01/22/23 18:00 Coronavirus 229E (PCR) Not detected (NOT DETECT) 01/22/23 18:00 Human Metapneumovir PCR Not detected (NOT DETECT) 01/22/23 18:00 Influenza A (H1) PCR Not detected (NOT DETECT) 01/22/23 18:00 Influenza A (H3) PCR Not detected (NOT DETECT) 01/22/23 18:00 Influenza Type A (PCR) Not detected (NOT DETECT) 01/22/23 18:00 Influenza Type B (PCR) Not detected (NOT DETECT) 01/22/23 18:00 M. pneumoniae (PCR) Not detected (NOT DETECT) 01/22/23 18:00 Parainfluenza 1 (PCR) Not detected (NOT DETECT) 01/22/23 18:00 Parainfluenza 2 (PCR) Not detected (NOT DETECT) 01/22/23 18:00 Parainfluenza 3 (PCR) Not detected (NOT DETECT) 01/22/23 18:00 Parainfluenza 4 (PCR) Not detected (NOT DETECT) 01/22/23 18:00 RSV Type A (PCR) Not detected (NOT DETECT) 01/22/23 18:00 RSV Type B (PCR) Not detected (NOT DETECT) 01/22/23 18:00 Entero/Rhino (PCR) Not detected (NOT DETECT) 01/22/23 18:00 SARS-CoV-2 (PCR) Not detected (NOT DETECT) 01/22/23 18:00 Vitals Last Vital Signs Temp 98.1 F 01/25/23 08:00 Pulse 85 01/25/23 08:00 Resp 16 01/25/23 08:00 BP 110/69 01/25/23 08:00 Pulse Ox 95 01/25/23 08:00 O2 Del Method Nasal Cannula 01/25/23 08:00 O2 Flow Rate 2 01/25/23 08:00 Discharge Plan Discharge Patient Disposition: Home Condition: Stable Prescriptions: New prednisone 20 mg tablet 20 mg PO BID 5 Days Qty: 10 0RF amoxicillin-pot clavulanate 875-125 mg tablet 1 tab PO BID 5 Days Qty: 10 0RF Continued aspirin 81 mg tablet,delayed release (DR/EC) 81 mg PO BEDTIME atorvastatin 80 mg tablet 80 mg PO BEDTIME tamsulosin [Flomax] 0.4 mg capsule 0.8 mg PO BEDTIME multivitamin Tablet 1 tab PO QAM fluticasone propionate [Flonase Allergy Relief] 50 mcg/actuation spray,suspension 1 spray INTRANASAL BID sertraline 100 mg tablet 200 mg PO QAM trazodone 100 mg tablet 300 mg PO BEDTIME isosorbide mononitrate 30 mg tablet extended release 24 hr 45 mg PO QAM Qty: 135 2RF trospium 20 mg tablet 20 mg PO BID Rx Instructions: administer on an empty stomach omeprazole 20 mg tablet,delayed release (DR/EC) 40 mg PO QAM fludrocortisone 0.1 mg Tablet 0.05 mg PO DAILY Stiolto Respimat 2.5-2.5 mcg/actuation Mist 2 inh inhalation DAILY quetiapine [Seroquel] 300 mg Tablet 150 mg PO BEDTIME cetirizine [Zyrtec] 10 mg Tablet 10 mg PO DAILY acetaminophen [Tylenol Ex Str Rapid Release] 500 mg Tablet 1,500 mg PO Q6H PRN (Reason: Pain) methocarbamol [Robaxin] 750 mg Tablet 750 mg PO BEDTIME ascorbic acid (vitamin C) [Vitamin C] 500 mg Tablet 1,000 mg PO QAM nitroglycerin [Nitrostat] 0.4 mg Tablet, Sublingual 0.4 mg SUBLINGUAL Q5M PRN (Reason: Chest Pain) Rx Instructions: do not exceed 3 doses per episode hydrocortisone 2.5 % Cream 1 applic TOPICAL QID PRN (Reason: unknown) albuterol sulfate 90 mcg/actuation Hfa Aerosol Inhaler 1 inh INHALATION QID PRN (Reason: Shortness Of Breath) bupropion HCl [Wellbutrin XL] 300 mg Tablet Extended Release 24 Hr 150 mg PO QAM diclofenac sodium [Voltaren Arthritis Pain] 1 % Gel 2 g TOPICAL TID PRN (Reason: Pain) Rx Instructions: NO MORE THAN 16GM DAILY TO LOWER EXTREMETY. NO MORE THAN 8 GR DAILY TO UPPER EXTREMETY. cholecalciferol (vitamin D3) [Vitamin D3] 50 mcg (2,000 unit) Capsule 50 mcg PO DAILY Cortisporin-TC 3.3-3-10-0.5 mg/mL drops,suspension 4 drp otic (ear) TID Qty: 10 0RF Held sulfasalazine 500 mg tablet 1,500 mg PO BID Hold Instructions: Resume on 02/01/23. Discharge Orders: Discharge Order (Routine); Ordered 01/25/23 Ordered By: Aristeo Moser Referrals: Jessica Heredia MD [Primary Care Provider] - Datar,Danilo Larson MD [Physician] - 2 weeks Discharge Diet: Cardiac Discharge Activity: Resume usual activity Patient Instructions: Opioid Safety, Pain Management Discharge Attestations Time Spent in Discharge Care*: greater than 30 min Quality Metrics Clinical Quality Measures [ No reported AMI, CVA or VTE this stay] Coding Level of Care Code 57191 Total time (in minutes) for Discharge: 45 Diagnoses Pneumonia J18.9 Dysphagia R13.10 Sleep apnea G47.30 Hypertension I10 Hypertension type: essential hypertension Coronary artery disease I25.119 Coronary Disease-Associated Artery/Lesion type: [place] artery [place] vs. transplanted heart: [place] heart Associated angina: with unspecified angina Pleural neoplasm D49.1 Sprain of left rotator cuff capsule S43.422A Emphysema lung J43.9 Emphysema type: unspecified Encounter for smoking cessation counseling Z71.6 Goals of care, counseling/discussion Z71.89 Elevated lactic acid level R79.89
== END 2023-01-25 16:39 | disposition home or self-care (01) | DRG 195 ==
LOC: ER 15:20 → MEDSURG 15:43
PROVIDERS: Admitting Provider Family Medicine; Emergency Provider Family Medicine; PCP Family Medicine; Visit Provider Family Medicine
DX: J18.9 Pneumonia, unspecified organism (principal); J43.9 Emphysema, unspecified; Z87.01 Personal history of pneumonia (recurrent); K21.9 Gastro-esophageal reflux disease without esophagitis; I10 Essential (primary) hypertension; I25.10 Atherosclerotic heart disease of native coronary artery without angina pectoris; G47.30 Sleep apnea, unspecified; K22.719 Barrett's esophagus with dysplasia, unspecified; Z79.82 Long term (current) use of aspirin; Z79.891 Long term (current) use of opiate analgesic; Z79.51 Long term (current) use of inhaled steroids; F41.9 Anxiety disorder, unspecified; Z85.46 Personal history of malignant neoplasm of prostate
CPT/HCPCS: 36415; 36416; 36600; 71045; 71250; 80053; 80061; 80202; 81003; 82533; 82803; 82962; 83036; 83605; 83735; 83880; 84100; 84145; 84443; 84484; 85025; 86140; 86403; 87040; 87070; 87205; 87486; 87581; 87633; 92523; 92610; 93005; 94640; 94664; 94760; 96365; 96372; 96375; 99285; C9113; J1100; J1650; J2543; J3370; J7030; Q3014

== ENCOUNTER 2023-02-11 14:57 | Emergency (ER) | payer OTHER, SELFPAY ==
[2023-02-11 15:00] VITALS: BP 130/97; PULSE 69; RESP 17; TEMP 36.7; O2SAT 94; BMI 34.8
--- NOTE | 2023-02-11 15:09 | XR_ITS ---
WS: [id number] Portable AP upright chest, 02/11/2023 Clinical Data: weakness Comparison: Portable chest, 01/22/2023 Findings: No nodules, masses or effusions are seen. The heart is normal. The pulmonary vascularity is not increased. No pneumothorax is seen. The hazy opacity overlying the lower left lung remains the s mary. This could represent pneumonia and/or atelectasis. The aortic arch and descending thoracic aorta show mild tortuosity. There is a slight dextroscoliosis of the thoracic spine. The patient has had a n anterior and posterior cervical fusion. ( XR/XR chest 1V portable [id number] Impression: No change in hazy opacity overlying left lower lobe.
--- NOTE | 2023-02-11 15:10 | ECG_ITS ---
[facility] Test Date: 2023-02-11 Pat Name: Chirag Osman Department: Room: Gender: Male [employer]er: : 1945 Requested By: Juan Weiss Order Number: [id number] Diana MD: Venice Griffiths M.D. Measurements Intervals [place] Rate: 61 P: 29 NV: 150 QRS: 62 QRSD: 106 T: 58 QT: 390 QTc: 394 Interpretive Statements SINUS RHYTHM Compared to ECG 01/22/2023 13:43:54 Right bundle-branch block no longer present Electronically Signed On 02-11-2023 22:56:21 CDT by Venice Griffiths M.D. [email or web address]
--- NOTE | 2023-02-11 15:17 | W.ED.DIZZY ---
HPI - Dizziness General: Chief Complaint: Dizziness Stated Complaint: low B/P Time Seen by Provider: 02/11/23 15:00 Source: patient Mode of arrival: ambulatory Limitations: no limitations History of Present Illness: HPI Narrative: 77-year-old male recently been admitted here for pneumonia few weeks ago states has been monitoring his blood pressure he states he had 2 readings this morning in the 90s he had some dizziness with standing and nausea blood pressure here is now normal he denies any symptoms currently denies any chest pain or headache. No vomiting. Associated symptoms: Reports malaise; Denies chest pain, chills, headache(s), nausea or vomiting Review of Systems Const: Reports: malaise; Denies: fever(s), chills, body aches or change in appetite Eyes: Denies: blurry vision or eye discomfort ENMT: Denies: throat pain or dental pain Card: Denies: chest pain Resp: Denies: dyspnea GI: Denies: abdominal pain, nausea, vomiting or diarrhea : Denies: dysuria Musc: Denies: neck pain or back pain Skin/Breast: Denies: rash Neuro: Denies: headache(s) PFSH ED PFSH: Medical History Anxiety Coronary artery disease Depression History of recurrent ear infection Hypertension Prostate cancer Had cryogenic process performed Sleep apnea Surgical History History of neck surgery History of surgery on upper extremity Hand Hx of colonoscopy with polypectomy Family History Father Stroke Social History Smoking and tobacco status: current every day smoker (0.5 ppd) cigarettes Years cigarettes smoked: 50 Quit status (tobacco): has tried quititng Second hand smoke exposure: No Smoking risk assessment/counseling performed?: Yes Alcohol intake: never Substance/Drug Use: never Lives independently: Yes Household members: spouse and family Marital status: service: Yes Current occupational status: retired Do you think of yourself as: Straight/Heterosexual Current gender identity: Male Physical Exam Const: COMMON NORMALS: patient oriented x3 HENMT: COMMON NORMALS: normocephalic and atraumatic HEAD & SCALP: normocephalic and atraumatic Neck/C-Spine: COMMON NORMALS: full ROM and supple Chest: COMMONS NORMALS: normal inspection of the chest Resp: COMMON NORMALS: normal respiratory effort, No retractions, No use of accessory muscles and clear to auscultation bilaterally AUSCULTATION: clear to auscultation bilaterally Cardio: COMMON NORMALS: regular rate, regular rhythm and No murmurs present (Cardio) RATE: regular rate RHYTHM: regular rhythm GI: COMMON NORMALS: Normal to inspection, nondistended, normoactive bowel sounds present, Soft to palpation, non-tender and no masses PALPATION: Yes Soft to palpation Extremity: COMMON NORMALS: normal to inspection and full ROM Neuro: COMMON NORMALS: patient oriented x3, moves all extremities and no focal motor deficits Psych: COMMON NORMALS: mental status grossly normal, Normal thought process present and cooperative THOUGHT PROCESS: Normal thought process present Skin: COMMON NORMALS: no rashes or lesions noted and no wounds GENERAL SKIN EXAM: no rashes or lesions noted Course Vital Signs: Vital signs: Vital Signs Temperature 98.1 F 02/11/23 15:00 Pulse Rate 58 L 02/11/23 16:50 Respiratory Rate 17 02/11/23 15:00 Blood Pressure 131/67 02/11/23 16:50 Pulse Oximetry 97 02/11/23 16:50 Oxygen Delivery Me thod Room Air 02/11/23 15:35 MDM - Dizziness Medical Decision Making Patient presents here with some dizziness hypotension at home his blood pressures here been normal blood works normal he states he feels much improved and wants to go home. He is stable for discharge to follow-up with PCP and return if worsening. Medical Records I reviewed the patient's medical records. Lab Data I reviewed the patient's lab results. 02/11/23 15:25 02/11/23 15:25 Radiology Impressions Chest X-Ray 02/11/23 15:09 Impression: No change in hazy opacity overlying left lower lobe. Laboratory Results WBC 6.8 10^3/uL (4.0-10.0) 02/11/23 15:25 RBC 3.65 10^6/uL (4.1-5.3) L 02/11/23 15:25 Hgb 10.9 g/dL (11.7-16.6) L 02/11/23 15:25 Hct 33.8 % (42.0-52.0) L 02/11/23 15:25 MCV 92.6 fl (80-94) 02/11/23 15:25 MCH 29.9 pg (28.0-34.0) 02/11/23 15:25 MCHC 32.2 g/dL (30.0-36.0) 02/11/23 15:25 RDW 14.6 % (12.1-15.1) 02/11/23 15:25 Plt Count 179 10^3/cmm (130-400) 02/11/23 15:25 MPV 9.9 fL (7.4-10.4) 02/11/23 15:25 Neut % (Auto) 59.2 % 02/11/23 15:25 Lymph % (Auto) 22.5 % 02/11/23 15:25 [place] % (Auto) 10.5 % 02/11/23 15:25 Eos % (Auto) 6.8 % 02/11/23 15:25 Baso % (Auto) 0.7 % 02/11/23 15:25 Neut # (Auto) 3.99 10^3/uL (1.8-7.7) 02/11/23 15:25 Lymph # (Auto) 1.5 10^3/uL (0.8-4.8) 02/11/23 15:25 [place] # (Auto) 0.7 10^3/uL (0.2-0.9) 02/11/23 15:25 Eos # (Auto) 0.5 10^3/uL (0.0-0.8) 02/11/23 15:25 Baso # (Auto) 0.1 10^3/uL (0.0-0.1) 02/11/23 15:25 Nucleated RBC % (auto) 0 % 02/11/23 15: Nucleated RBCs # 0.0 /100WBC 02/11/23 15:25 Sodium 136 mmol/L (136-145) 02/11/23 15:25 Potassium 4.4 mmol/L (3.5-5.1) 02/11/23 15:25 Chloride 100 mmol/L (98-107) 02/11/23 15:25 Carbon Dioxide 27 mmol/L (22-29) 02/11/23 15:25 Anion Gap 13.4 (5-19) 02/11/23 15:25 BUN 17 mg/dL (8-23) 02/11/23 15:25 Creatinine 0.8 mg/dL (0.7-1.2) 02/11/23 15:25 GFR Calculation Not Reportable 02/11/23 15:25 Glucose 98 mg/dL (65-115) 02/11/23 15:25 POC Glucose 112 mg/dL (70-110) H 02/11/23 15:21 Calculated Osmolality 284 mOsm/kg (285-295) L 02/11/23 15:25 Calcium 8.8 mg/dL (8.5-10.5) 02/11/23 15:25 Total Bilirubin 0.3 mg/dL (0.15-1.2) 02/11/23 15:25 AST 13 U/L (0-40) 02/11/23 15:25 ALT 15 U/L (0-41) 02/11/23 15:25 Alkaline Phosphatase 41 U/L (40-130) 02/11/23 15:25 Total Protein 6.1 g/dL (6.6-8.7) L 02/11/23 15:25 Albumin 3.6 g/dL (3.5-5.2) 02/11/23 15:25 Globulin 2.5 g/dL (1.3-4.6) 02/11/23 15:25 EKG Data EKG 1: I personally reviewed and interpreted this EKG as follows: EKG interpretation date: 02/11/23 EKG interpretation time: 15:34 Interpretation: nsr hr [address] or t wave abnormalities qrs 106 qtc 393 Discharge Plan Discharge Patient Disposition: Home Clinical Impression: Dizziness Condition: Stable Prescriptions: No Action aspirin 81 mg tablet,delayed release (DR/EC) 81 mg PO BEDTIME atorvastatin 80 mg tablet 80 mg PO BEDTIME sulfasalazine 500 mg tablet 1,500 mg PO BID Hold Instructions: Resume on 02/01/23. tamsulosin [Flomax] 0.4 mg capsule 0.8 mg PO BEDTIME multivitamin Tablet 1 tab PO QAM fluticasone propionate [Flonase Allergy Relief] 50 mcg/actuation spray,suspension 1 spray INTRANASAL BID sertraline 100 mg tablet 200 mg PO QAM trazodone 100 mg tablet 300 mg PO BEDTIME isosorbide mononitrate 30 mg tablet extended release 24 hr 45 mg PO QAM Qty: 135 2RF trospium 20 mg tablet 20 mg PO BID Rx Instructions: administer on an empty stomach omeprazole 20 mg tablet,delayed release (DR/EC) 40 mg PO QAM Stiolto Respimat 2.5-2.5 mcg/actuation Mist 2 inh inhalation DAILY quetiapine [Seroquel] 300 mg Tablet 150 mg PO BEDTIME cetirizine [Zyrtec] 10 mg Tablet 10 mg PO DAILY acetaminophen 500 mg Tablet 1,500 mg PO Q6H PRN (Reason: Pain) methocarbamol 750 mg Tablet 750 mg PO BEDTIME ascorbic acid (vitamin C) [Vitamin C] 500 mg Tablet 1,000 mg PO QAM nitroglycerin [Nitrostat] 0.4 mg Tablet, Sublingual 0.4 mg SUBLINGUAL Q5M PRN (Reason: Chest Pain) Rx Instructions: do not exceed 3 doses per episode hydrocortisone 2.5 % Cream 1 applic TOPICAL QID PRN (Reason: unknown) albuterol sulfate 90 mcg/actuation Hfa Aerosol Inhaler 1 inh INHALATION QID PRN (Reason: Shortness Of Breath) bupropion HCl [Wellbutrin XL] 300 mg Tablet Extended Release 24 Hr 150 mg PO QAM diclofenac sodium [Voltaren Arthritis Pain] 1 % Gel 2 g TOPICAL TID PRN (Reason: Pain) Rx Instructions: NO MORE THAN 16GM DAILY TO LOWER EXTREMETY. NO MORE THAN 8 GR DAILY TO UPPER EXTREMETY. cholecalciferol (vitamin D3) [Vitamin D3] 50 mcg (2,000 unit) Capsule 50 mcg PO DAILY famotidine 20 mg Tablet 20 mg PO BID Discharge Orders: Discharge ED (Routine); Ordered 02/11/23 Ordered By: Juan Weiss Referrals: Jessica Heredia MD [Primary Care Provider] - 1-3 days Discharge Diet: Advance as tolerated Discharge Activity: Resume usual activity Patient Instructions: Dizziness (ED) Coding Level of Care Code ED Chemical Dependency Nurse for Nick Soliz
[2023-02-11 15:30] LABS: Glucose Point of Care 112 mg/dL (70-110)
[2023-02-11 15:35] VITALS: BP 122/72; O2SAT 96
[2023-02-11] MEDS: sodium chloride 0.9% 500 ML IV (15:45)
[2023-02-11 15:52] LABS: Basophils # 0.1 10^3/uL (0.0-0.1); Basophils % 0.7 %; Eosinophils # 0.5 10^3/uL (0.0-0.8); Eosinophils % 6.8 %; Hematocrit 33.8 % (42.0-52.0); Hemoglobin 10.9 g/dL (11.7-16.6); Lymphocytes # 1.5 10^3/uL (0.8-4.8); Lymphocytes % 22.5 %; Mean Corpuscular HGB Conc 32.2 g/dL (30.0-36.0); Mean Corpuscular Hemoglobin 29.9 pg (28.0-34.0); Mean Corpuscular Volume 92.6 fl (80-94); Mean Platelet Volume 9.9 fL (7.4-10.4); Monocytes # 0.7 10^3/uL (0.2-0.9); Monocytes % 10.5 %; Neutrophils # 3.99 10^3/uL (1.8-7.7); Neutrophils % 59.2 %; Nucleated Red Blood Cells % 0 %; Platelet Count 179 10^3/cmm (130-400); Red Blood Count 3.65 10^6/uL (4.1-5.3); Red Cell Distribution Width 14.6 % (12.1-15.1); White Blood Count 6.8 10^3/uL (4.0-10.0)
[2023-02-11 16:05] VITALS: BP 131/67; PULSE 64
[2023-02-11 16:20] LABS: Alanine Aminotransferase 15 U/L (0-41); Albumin Level 3.6 g/dL (3.5-5.2); Alkaline Phosphatase 41 U/L (40-130); Aspartate Amino Transferase 13 U/L (0-40); Blood Urea Nitrogen 17 mg/dL (8-23); Calcium 8.8 mg/dL (8.5-10.5); Carbon Dioxide 27 mmol/L (22-29); Chloride 100 mmol/L (98-107); Globulin 2.5 g/dL (1.3-4.6); Glucose 98 mg/dL (65-115); Osmolality Calculated 284 mOsm/kg (285-295); Sodium 136 mmol/L (136-145); Total Bilirubin 0.3 mg/dL (0.15-1.2); Total Protein 6.1 g/dL (6.6-8.7)
[2023-02-11 16:31] LABS: Anion Gap 13.4 (5-19); Potassium 4.4 mmol/L (3.5-5.1)
[2023-02-11 16:32] VITALS: BP 119/62; BP 125/72; BP 131/67; PULSE 61; PULSE 64; PULSE 71
[2023-02-11 16:50] VITALS: BP 131/67; PULSE 58; O2SAT 97
== END 2023-02-11 16:51 | disposition home or self-care (01) ==
PROVIDERS: Emergency Provider Emergency Medicine; PCP Family Medicine
DX: R42 Dizziness and giddiness (principal); Z79.82 Long term (current) use of aspirin; I25.10 Atherosclerotic heart disease of native coronary artery without angina pectoris; I10 Essential (primary) hypertension; Z85.46 Personal history of malignant neoplasm of prostate; F17.210 Nicotine dependence, cigarettes, uncomplicated
CPT/HCPCS: 36416; 71045; 80053; 82962; 85025; 93005; 99285; J7040

== ENCOUNTER → 2023-02-14 10:47 | Outpatient (BNVA) | payer OTHER, SELFPAY | PROVIDERS: PCP Family Medicine; Visit Provider Internal Medicine Cardiovascular Disease | DX: I10 Essential (primary) hypertension (principal); E78.5 Hyperlipidemia, unspecified; J43.9 Emphysema, unspecified; I25.118 Atherosclerotic heart disease of native coronary artery with other forms of angina pectoris; F17.210 Nicotine dependence, cigarettes, uncomplicated | CPT/HCPCS: 99214 ==

== ENCOUNTER → 2023-03-07 12:51 | Outpatient (BNVA) | payer OTHER, SELFPAY | PROVIDERS: PCP Family Medicine; Visit Provider Nurse Practitioner Family | DX: I25.119 Atherosclerotic heart disease of native coronary artery with unspecified angina pectoris (principal); I10 Essential (primary) hypertension; F17.210 Nicotine dependence, cigarettes, uncomplicated | CPT/HCPCS: 99214 ==

== ENCOUNTER → 2023-03-11 08:36 | Outpatient (BNVA) | payer OTHER, SELFPAY | PROVIDERS: PCP Family Medicine; Visit Provider Internal Medicine Pulmonary Disease | DX: J69.0 Pneumonitis due to inhalation of food and vomit (principal); R91.8 Other nonspecific abnormal finding of lung field; J43.9 Emphysema, unspecified; F17.210 Nicotine dependence, cigarettes, uncomplicated; J47.9 Bronchiectasis, uncomplicated; Z87.01 Personal history of pneumonia (recurrent); R13.10 Dysphagia, unspecified | CPT/HCPCS: 99214 ==

== ENCOUNTER 2023-03-31 10:43 | Outpatient (CLI) | payer OTHER, SELFPAY ==
--- NOTE | 2023-03-31 11:00 | CT_ITS ---
WS: [id number] CT CHEST TECHNIQUE: Contrast enhanced CT of the chest with coronal and sagittal reformatted images. CLINICAL INFORMATION: CT Chest for resolution of infiltrates COMPARISON: CT chest 01/22/2023 DLP: 691.[address] scans at [facility] use at least one of these dose optimization techniques: automated e xposure control; mA and/or kV adjustment per patient size (includes targeted exams where dose is matc hed to clinical indication); or iterative reconstruction. FINDINGS: Pleural-based opacity LEFT lower lobe with appearance compatible with round atelectasis. This is unch anged since 01/22/2023. Additional interstitial and patchy filtrates in the lung bases have resolved c ompared to previous. Volume loss LEFT lung. Normal caliber thoracic aorta. Vascular calcification. No mediastinal or hilar lymphadenopathy. No ax illary lymphadenopathy. Tiny esophageal hiatal hernia with suggestion of stenosis or narrowing of the GE junction. Fluid dist ended stomach. Fluid in the thoracic esophagus. Gallbladder is contracted. Adrenal glands are normal. Low-attenuation lesion upper pole LEFT kidney measuring 2.5 cm with a small amount of peripheral and septal enhancement. Recommend follow-up ultrasound. Moderate thoracic kyphosis with ankylosis. IMPRESSION: 1. Pleural-based opacity LEFT lower lobe compatible with round atelectasis unchanged. 2. Previously described patchy infiltrates in the lung bases have otherwise essentially resolved. 3. Stable volume loss LEFT lung. 4. Complex LEFT upper pole renal lesion measuring 2.5 cm. Recommend follow-up with ultrasound. 5. Small esophageal hiatal hernia with narrowing at the GE junction. Fluid in the thoracic esophagus with fluid distended stomach. Consider further evaluation with endoscopy. 6. 5 mm RIGHT middle lobe hazy nodule unchanged compared to previous. Recommend 12-month follow-up c hest CT.
[2023-03-31] MEDS: iohexol 350 mg/mL 500 mL Btl (per mL) IV (11:13)
== END 2023-03-31 10:44 | disposition home or self-care (01) ==
PROVIDERS: PCP Family Medicine; Visit Provider Internal Medicine Pulmonary Disease
DX: J69.0 Pneumonitis due to inhalation of food and vomit (principal); J98.11 Atelectasis; N28.9 Disorder of kidney and ureter, unspecified; K44.9 Diaphragmatic hernia without obstruction or gangrene; R91.1 Solitary pulmonary nodule
CPT/HCPCS: 71260; Q9967

== ENCOUNTER 2023-04-15 07:54 | Outpatient (CLI) | payer OTHER, SELFPAY ==
--- NOTE | 2023-04-15 08:15 | US_ITS ---
WS: [id number] RENAL ULTRASOUND HISTORY: renal lesion seen on chest imaging COMPARISON: Chest CT 03/31/2023 TECHNIQUE: 2-D and color Doppler imaging of the kidney submitted. Right kidney: 10.1 cm x 4.4 cm x 4.7 cm. Cortex: 2.1 cm Normal echogenicity with no hydronephrosis or mass. Left kidney: 11.5 cm x 5.2 cm x 5.9 cm. Cortex: 1.4 cm Complex cyst in the superior pole LEFT kidney is not identified by ultrasound. This is probably due t o the adjacent fat and the patient's body habitus. There is a simple cyst identified from the lower p ole measuring 3.9 x 3.0 x 3.7 cm. This cyst was also described on a prior CT from 2007. Aorta: Normal. Urinary Bladder: Minimally distended bladder. IMPRESSION: 1. No renal obstruction or solid mass. 2. Minimally complex cyst upper pole LEFT kidney is not identified by ultrasound. This can be further evaluated by MRI or CT renal mass protocols. 3. Benign LEFT renal lower pole cyst.
== END 2023-04-15 07:55 | disposition home or self-care (01) ==
LOC: RAD 07:56
PROVIDERS: PCP Family Medicine; Visit Provider Internal Medicine Pulmonary Disease
DX: N28.9 Disorder of kidney and ureter, unspecified (principal); N28.1 Cyst of kidney, acquired
CPT/HCPCS: 76770

== ENCOUNTER → 2023-04-28 09:31 | Outpatient (BNVA) | payer OTHER, SELFPAY | PROVIDERS: PCP Family Medicine; Visit Provider Internal Medicine Pulmonary Disease | DX: J69.0 Pneumonitis due to inhalation of food and vomit (principal); R91.8 Other nonspecific abnormal finding of lung field; J43.9 Emphysema, unspecified; R13.10 Dysphagia, unspecified; Z91.89 Other specified personal risk factors, not elsewhere classified; J47.9 Bronchiectasis, uncomplicated; J94.8 Other specified pleural conditions; N28.9 Disorder of kidney and ureter, unspecified; K44.9 Diaphragmatic hernia without obstruction or gangrene; Z87.01 Personal history of pneumonia (recurrent); Z87.891 Personal history of nicotine dependence | CPT/HCPCS: 99214 ==

== ENCOUNTER 2023-05-10 07:04 | Inpatient (IN) | payer OTHER, SELFPAY ==
[2023-05-10] VITALS (40 sets, daily range): BP systolic 50–155; BP diastolic 38–80; PULSE 73–120; RESP 16–30; TEMP 36.9; O2SAT 87–99; BMI 34.8
--- NOTE | 2023-05-10 07:07 | XRR_ITS ---
PROCEDURE INFORMATION: Exam: XR Chest Exam date and time: 05/10/2023 7:41 AM Age: 78 years old Clinical indication: Cough and dyspnea; Patient HX: Dyspnea; Cough; SOB; HX emphysema, HTN, past smoker x 60 yrs; Additional info: Dyspnea/cough TECHNIQUE: Imaging protocol: Radiologic exam of the chest. Views: 1 view. COMPARISON: CT chest w con* [id number] 03/31/2023 11:23 AM FINDINGS: Lungs: Hyperinflated lungs. Airspace opacity in the right upper and lower lobes. Pleural spaces: Unremarkable. No pleural effusion. No pneumothorax. Heart/Mediastinum: Unremarkable. No cardiomegaly. Bones/joints: Unremarkable. XR/XR chest 1V portable [id number] IMPRESSION: Hyperinflated lungs. Airspace opacity in the right upper and lower lobe suggestive of pneumonia. Follow-up to resolution is recommended
--- NOTE | 2023-05-10 07:07 | ECG_ITS ---
[facility] Test Date: 2023-05-10 Pat Name: Chirag Osman Department: Room: Gender: Male Critical Care Nurse: : 1945 Requested By: Chago Dillard Order Number: [id number] Diana MD: Venice Griffiths M.D. Measurements Intervals [place] Rate: 114 P: 62 IA: 114 QRS: 99 QRSD: 157 T: 20 QT: 363 QTc: 502 Interpretive Statements SINUS TACHYCARDIA WITH SHORT IA INTERVAL RIGHT BUNDLE BRANCH BLOCK [120+ ms QRS DURATION, UPRIGHT V1, 40+ ms S IN I/aVL/V4/V5/V6] Compared to ECG 02/11/2023 15:34:58 Short IA interval now present Right bundle-branch block now present Sinus rhythm no longer present Electronically Signed On 05-10-2023 8:25:59 CDT by Venice Griffiths M.D. [id number]
--- NOTE | 2023-05-10 07:12 | ED_ITS ---
HPI - SOB/Dyspnea General: Chief Complaint: Shortness of Breath/Dyspnea Stated Complaint: sob Time Seen by Provider: 05/10/23 07:05 Source: patient Mode of arrival: ambulatory History of Present Illness: HPI Narrative: 78-year-old male presents emergency room via EMS sudden onset of shortness of breath when he woke this morning denies any fever sweats or chills yesterday. Began while at rest he has a history of COPD. Had pneumonia multiple times in the past. EMS reports he was hypoxic at home with a sat in the 80s on room air at 6 L Via nasal cannula on arrival in emergency room he was still in the mid to upper 80s this improved after application of an oxy mask at 10 to 12 L/min. Initially denying any chest pain later did complain of some chest discomfort he does admit to a productive cough. Some loose stools no vomiting MD elicited complaint: shortness of breath Pertinent past history: COPD Onset (ago): hour(s) Timing: constant Exacerbating factors: exertion and coughing Relieving factors: nothing Known history of: COPD Associated symptoms: Deny abdominal pain, chest pain, fever(s), nausea or vomiting Related Data: Home oxygen amount: none Review of Systems Const: Denies: fever(s) or chills Card: Denies: chest pain Resp: Reports: dyspnea and non-productive cough GI: Denies: abdominal pain, nausea or vomiting : Denies: dysuria, urinary frequency or urinary urgency Musc: Denies: neck pain or back pain Skin/Breast: Denies: rash PFSH ED PFSH: Medical History Anxiety Coronary artery disease Depression History of recurrent ear infection Hypertension Prostate cancer Had cryogenic process performed Sleep apnea Surgical History History of neck surgery History of surgery on upper extremity Hand Hx of colonoscopy with polypectomy Family History Father Stroke Social History Smoking and tobacco/nicotine status: former use of tobacco/nicotine (0.5 ppd) Quit status (tobacco/nicotine): has quit using Year quit tobacco: 2022 Former quit date comment: 1 ppd X 60 years Second hand smoke exposure: No Alcohol intake: never Substance/Drug Use: never Lives independently: Yes Household members: spouse and family Marital status: service: Yes Current occupational status: retired Do you think of yourself as: Straight/Heterosexual Current gender identity: Male Physical Exam Const: GENERAL APPEARANCE: cooperative and comfortable ORIENTATION/CONSCIOUSNESS: Yes awake, Yes oriented to person, Yes oriented to place and Yes oriented to time HENMT: COMMON NORMALS: normocephalic, atraumatic and hearing grossly normal bilaterally HEAD & SCALP: normocephalic and atraumatic Resp: COMMON NORMALS: normal respiratory effort, No retractions and No use of accessory muscles AUSCULTATION: rhonchi right lower and wheezes Cardio: COMMON NORMALS: regular rate, regular rhythm and No murmurs present (Cardio) RATE: regular rate RHYTHM: regular rhythm GI: COMMON NORMALS: Soft to palpation and No hepatosplenomegaly present AUSCULTATION: Yes normoactive bowel sounds PALPATION: Yes Soft to palpation, No Tenderness to palpation present (GI), No Guarding due to palpation present (GI) and Yes No hepatosplenomegaly present Extremity: COMMON NORMALS: normal to inspection, capillary refill normal, no clubbing, cyanosis or edema, no calf tenderness and no pedal edema Neuro: SENSORIUM/ORIENTATION: Yes oriented to person, Yes oriented to place and Yes oriented to time Skin: COMMON NORMALS: no rashes or lesions noted GENERAL SKIN EXAM: no rashes or lesions noted Course Vital Signs: Vital signs: Vital Signs Temperature 98.4 F 05/10/23 07:14 Pulse Rate 90 05/10/23 11:11 Respiratory Rate 18 05/10/23 11:11 Blood Pressure 107/63 05/10/23 11:11 Pulse Oximetry 97 05/10/23 11:11 Oxygen Delivery Me thod Nasal Cannula 05/10/23 11:11 Oxygen Flow Rate 6 05/10/23 11:11 MDM - SOB/Dyspnea Medical Decision Making Right middle and lower lobe pneumonia started on ceftriaxone and Zithromax cultures done lactic acid pending. Patient does not have any leukocytosis. Flu and COVID swabs are still pending as well we will also check a D-dimer discussed with hospitalist orders written Patient later began complaint chest comfort EKG repeated no acute ST changes troponins ordered by Dr. Justin Tapia delta troponin of the first to the second Trope was +13. Patient was given Lovenox topical nitro still no acute ST changes noted. CTA chest no acute pulmonary embolism. Will admit to ICU. Initially we had ordered ceftriaxone and azithromycin while Dr. Tapia changed to Vanco and Zosyn Medical Records I reviewed the patient's medical records. Lab Data I reviewed the patient's lab results. 05/10/23 07:15 05/10/23 07:15 Labs/Radiology: Radiology Impressions Chest X-Ray 05/10/23 07:07 IMPRESSION: Hyperinflated lungs. Airspace opacity in the right upper and lower lobe suggestive of pneumonia. Follow-up to resolution is recommended Laboratory Results WBC 6.16 10^3/uL (3.29-11.43) 05/10/23 07:15 RBC 4.48 10^6/uL (3.85-5.65) 05/10/23 07:15 Hgb 13.00 g/dL (11.27-16.99) 05/10/23 07:15 Hct 41.0 % (37-53) 05/10/23 07:15 MCV 91.5 fl (82-101) 05/10/23 07:15 MCH 29.0 pg (27-33) 05/10/23 07:15 MCHC 31.7 g/dL (30-55) 05/10/23 07:15 RDW 15.1 % (12.1-15.1) 05/10/23 07:15 Plt Count 212 10^3/cmm (157-399) 05/10/23 07:15 MPV 9.4 fL (7.4-10.4) 05/10/23 07:15 Neut % (Auto) 83.3 % 05/10/23 07:15 Lymph % (Auto) 14.0 % 05/10/23 07:15 Foard % (Auto) 1.1 % 05/10/23 07:15 Eos % (Auto) 1.1 % 05/10/23 07:15 Baso % (Auto) 0.3 % 05/10/23 07:15 Neut # (Auto) 5.13 10^3/uL (1.8-7.7) 05/10/23 07:15 Lymph # (Auto) 0.9 10^3/uL (0.8-4.8) 05/10/23 07:15 Foard # (Auto) 0.1 10^3/uL (0.2-0.9) L 05/10/23 07:15 Eos # (Auto) 0.1 10^3/uL (0.0-0.8) 05/10/23 07:15 Baso # (Auto) 0.0 10^3/uL (0.0-0.1) 05/10/23 07:15 Nucleated RBC % (auto) 0 % 05/10/23 07:15 Nucleated RBCs # 0.0 /100WBC 05/10/23 07:15 D-Dimer 3.15 ug/mLFEU (0-0.59) H 05/10/23 07:15 Specimen Type Arterial 05/10/23 07:23 Sample Site Radial, left 05/10/23 07:23 ABG pH 7.38 (7.35-7.45) 05/10/23 07:23 ABG pCO2 41.1 mmHg (35-45) 05/10/23 07:23 ABG pO2 133.0 mmHg (80.0-100.0) H 05/10/23 07:23 ABG HCO3 24.1 mmol/L (22-26) 05/10/23 07:23 ABG O2 Saturation 98.1 05/10/23 07:23 ABG Base Excess -1.1 mmol/L (-2.0-2.0) 05/10/23 07:23 [place] Test Pos 05/10/23 07:23 A-a O2 Gradient Not Reportable 05/10/23 07:23 Hematocrit 40.0 % (42-52) L 05/10/23 07:23 Hgb O2 Saturation 96.8 % (95-100) 05/10/23 07:23 Carboxyhemoglobin 0.6 %THgb (0.4-20.1) 05/10/23 07:23 Methemoglobin 0.7 % (0.4-1.5) 05/10/23 07:23 Total Hemoglobin 13.1 g/dL (14-18) L 05/10/23 07:23 Sodium 139.0 mmol/L (131-143) 05/10/23 07:23 Potassium 3.7 mmol/L (3.5-5.0) 05/10/23 07:23 Glucose 118.0 mg/dL (70-115) H 05/10/23 07:23 Ionized Calcium 1.2 mmol/L (1.1-1.4) 05/10/23 07:23 O2 Delivery Device Oxy mask 05/10/23 07:23 O2 Liters/Min 15.0 % 05/10/23 07:23 Works Manager ID Cak 05/10/23 07:23 Sodium 138 mmol/L (136-145) 05/10/23 07:15 Potassium 4.1 mmol/L (3.5-5.1) 05/10/23 07:15 Chloride 101 mmol/L (98-107) 05/10/23 07:15 Carbon Dioxide 28 mmol/L (22-29) 05/10/23 07:15 Anion Gap 13.1 (5-19) 05/10/23 07:15 BUN 23 mg/dL (8-23) 05/10/23 07:15 Creatinine 1.1 mg/dL (0.7-1.2) 05/10/23 07:15 GFR Calculation Not Reportable 05/10/23 07:15 Glucose 128 mg/dL (65-115) H 05/10/23 07:15 Calculated Osmolality 291 mOsm/kg (285-295) 05/10/23 07:15 Lactic Acid 3.7 mmol/L (0.5-2.2) H 05/10/23 07:15 Lactic Acid (Sepsis) 2.3 mmol/L (0.5-2.2) H 05/10/23 10:28 Calcium 9.0 mg/dL (8.5-10.5) 05/10/23 07:15 Total Bilirubin 0.4 mg/dL (0.15-1.2) 05/10/23 07:15 AST 14 U/L (0-40) 05/10/23 07:15 ALT 16 U/L (0-41) 05/10/23 07:15 Alkaline Phosphatase 46 U/L (40-130) 05/10/23 07:15 Troponin T Baseline 9 ng/L (0-15) 05/10/23 07:15 Troponin T 120 Minute 22.16 ng/L (0-15) H 05/10/23 09:30 Delta Troponin T 13.16 ABS# (0-10) H* 05/10/23 09:30 Total Protein 6.8 g/dL (6.6-8.7) 05/10/23 07:15 Albumin 4.3 g/dL (3.5-5.2) 05/10/23 07:15 Globulin 2.5 g/dL (1.3-4.6) 05/10/23 07:15 Coronavirus 229E (PCR) Not detected (NOT DETECT) 05/10/23 07:53 Influenza Type A Ag negative (Negative) 05/10/23 07:53 Influenza Type B Ag negative (Negative) 05/10/23 07:53 SARS-CoV-2 (PCR) Not detected (NOT DETECT) 05/10/23 07:53 All radiology interpretation(s) finalized by discharge Discharge Plan Discharge Patient Disposition: Admitted As Inpatient Clinical Impression: Pneumonia, Elevated troponin I level Condition: Stable Coding Level of Care Code ED Electroencephalogram Technologist for Nick Soliz
[2023-05-10 07:31] LABS: Basophils % 0.3 %; Eosinophils # 0.1 10^3/uL (0.0-0.8); Eosinophils % 1.1 %; Lymphocytes # 0.9 10^3/uL (0.8-4.8); Mean Corpuscular HGB Conc 31.7 g/dL (30-55); Mean Corpuscular Volume 91.5 fl (82-101); Mean Platelet Volume 9.4 fL (7.4-10.4); Monocytes # 0.1 10^3/uL (0.2-0.9); Monocytes % 1.1 %; Neutrophils # 5.13 10^3/uL (1.8-7.7); Neutrophils % 83.3 %; Nucleated Red Blood Cells % 0 %; Platelet Count 212 10^3/cmm (157-399); Red Blood Count 4.48 10^6/uL (3.85-5.65); Red Cell Distribution Width 15.1 % (12.1-15.1); White Blood Count 6.16 10^3/uL (3.29-11.43)
[2023-05-10 07:33] LABS: ABG PCO2 41.1 mmHg (35-45); ABG PH Result 7.38 (7.35-7.45); Base Excess ABG -1.1 mmol/L (-2.0-2.0); Blood Gas Allen Test Pos; Blood Gas Operator Identificat CAK; Blood Gas Sample Site Radial, left; Blood Gas Sample Type Arterial; Carboxyhemoglobin 0.6 %THgb (0.4-20.1); HCO3 ABG 24.1 mmol/L (22-26); HGB O2 Sat 96.8 % (95-100); Ionized Calcium Level - ABG 1.2 mmol/L (1.1-1.4); Methemoglobin 0.7 % (0.4-1.5); Oxygen Device OXY MASK; Oxygen Saturation ABG 98.1; Potassium Level - ABG 3.7 mmol/L (3.5-5.0); Total Hemoglobin 13.1 g/dL (14-18)
[2023-05-10] MEDS: dexamethasone 10 mg/mL INJ IM (07:43)
[2023-05-10 07:48] LABS: Alanine Aminotransferase 16 U/L (0-41); Albumin Level 4.3 g/dL (3.5-5.2); Alkaline Phosphatase 46 U/L (40-130); Anion Gap 13.1 (5-19); Aspartate Amino Transferase 14 U/L (0-40); Blood Urea Nitrogen 23 mg/dL (8-23); Carbon Dioxide 28 mmol/L (22-29); Chloride 101 mmol/L (98-107); Globulin 2.5 g/dL (1.3-4.6); Glucose 128 mg/dL (65-115); Osmolality Calculated 291 mOsm/kg (285-295); Potassium 4.1 mmol/L (3.5-5.1); Sodium 138 mmol/L (136-145); Total Bilirubin 0.4 mg/dL (0.15-1.2); Total Protein 6.8 g/dL (6.6-8.7)
[2023-05-10] MEDS: ipratropium-albuterol 3 mL Neb 6 ML INHALATION (07:55)
[2023-05-10] MEDS: cefTRIAXone 1,000 MG in sodium chloride 0.9% (plus) 50 ML 100 MG IV (08:21)
[2023-05-10] MEDS: azithromycin 500 MG in sodium chloride 0.9% 250 ML 250 MG IV (08:21)
[2023-05-10 08:27] LABS: Lactic Sepsis W/Reflex 3.7 mmol/L (0.5-2.2)
[2023-05-10 08:30] LABS: Influenza A by IFA negative (Negative); Influenza B by IFA negative (Negative)
[2023-05-10 08:57] LABS: D Dimer 3.15 ug/mLFEU (0-0.59)
--- NOTE | 2023-05-10 09:08 | CT_ITS ---
WS: [id number] CTA OF THE CHEST WITH PULMONARY EMBOLISM PROTOCOL TECHNIQUE: High-resolution contrast enhanced CTA of the chest with coronal and sagittal reformatted i citlalys with pulmonary embolism protocol. MIP images are also reviewed. CLINICAL INFORMATION: Sudden onset dyspnea elevated D-dimer COMPARISON: CT chest 03/31/2023 DLP: 498.[address] scans at [facility] use at least one of these dose optimization techniques: automated e xposure control; mA and/or kV adjustment per patient size (includes targeted exams where dose is matc hed to clinical indication); or iterative reconstruction. FINDINGS: Proximal pulmonary arteries are normal. Normal segmental and subsegmental pulmonary arteries. No evid ence of pulmonary embolus. Stable round atelectasis LEFT lower lobe. Stable volume loss LEFT lung. New groundglass airspace infiltrates in the perihilar RIGHT upper lobe and RIGHT lower lobe. Slight c onsolidation in the RIGHT lung base. Recommend correlation for pneumonia. Normal caliber thoracic aorta. Bronchovascular thickening RIGHT hilum. Normal caliber thoracic aorta. A few prominent anterior mediastinal lymph nodes. No axillary lymphadenopathy. Thoracic ankylosis. Thoracic curve. IMPRESSION: 1. No evidence of pulmonary embolus. 2. Stable round atelectasis LEFT lower lobe. 3. New airspace infiltrates in the RIGHT perihilar upper lobe and RIGHT lower lobe with developing c onsolidation in the RIGHT lung base. Recommend correlation for pneumonia. 4. Bronchovascular thickening about the RIGHT hilum. 5. Small esophageal hiatal hernia.
--- NOTE | 2023-05-10 09:29 | ECG_ITS ---
[facility] Test Date: 2023-05-10 Pat Name: Chirag Osman Department: Room: Gender: Male Senior Information Developer: : 1945 Requested By: Jose Potter Order Number: [id number] Diana MD: Venice Griffiths M.D. Measurements Intervals [place] Rate: 97 P: 50 [place]: 118 QRS: 90 QRSD: 158 T: 11 QT: 369 QTc: 469 Interpretive Statements SINUS RHYTHM WITH SHORT [place] INTERVAL RIGHT BUNDLE BRANCH BLOCK [120+ ms QRS DURATION, UPRIGHT V1, 40+ ms S IN I/aVL/V4/V5/V6] Compared to ECG 05/10/2023 07:15:12 Sinus tachycardia no longer present Electronically Signed On 05-10-2023 12:21:06 CDT by Venice Griffiths M.D. [id number]
[2023-05-10 09:50] LABS: Troponin(5th) Baseline 9 ng/L (0-15)
[2023-05-10 09:56] LABS: Adenovirus Not Detected (NOT DETECT); Chlamydia Pneumoniae Not Detected (NOT DETECT); Coronavirus 229E,HKU1,NL63,OC4 Not Detected (NOT DETECT); Human Metapneumovirus Not Detected (NOT DETECT); Human Rhinovirus/Enterovirus Not Detected (NOT DETECT); Influenza A Not Detected (NOT DETECT); Influenza A H1 Not Detected (NOT DETECT); Influenza A H1-2009 Not Detected (NOT DETECT); Influenza A H3 Not Detected (NOT DETECT); Influenza B Not Detected (NOT DETECT); Mycoplasma Pneumoniae Not Detected (NOT DETECT); Parainfluenza Virus Type 1 Not Detected (NOT DETECT); Parainfluenza Virus Type 2 Not Detected (NOT DETECT); Parainfluenza Virus Type 3 Not Detected (NOT DETECT); Parainfluenza Virus Type 4 Not Detected (NOT DETECT); Respiratory Syncytial Virus A Not Detected (NOT DETECT); Respiratory Syncytial Virus B Not Detected (NOT DETECT); SARS-COV-2 Not Detected (NOT DETECT)
[2023-05-10 09:59] LABS: Reflex Lactate Order REFLEX LACTIC ORDERD
[2023-05-10 09:59] LABS: Troponin 5 2HR 22.16 ng/L (0-15)
[2023-05-10 10:12] LABS: Troponin 5 2HR Delta 13.16 ABS# (0-10)
[2023-05-10] MEDS: morphine 4 mg/mL SDV 1 mL 2 MG IVP (10:17)
[2023-05-10] MEDS: vancomycin 1,500 MG/300 ML PIGGYBACK 200 MG IV (10:19)
[2023-05-10] MEDS: nitroglycerin 1 gm/inch oint Pkt 1 INCH TOPICAL (10:24)
--- NOTE | 2023-05-10 11:04 | P.HP_ITS ---
Providers/Chief Complaint Admitting Physician: Jose Park MD Primary Care Provider: Jessica Heredia MD Chief Complaint: sob History of Present Illness Chirag Osman is a 78 year old male presenting to the emergency department with complaints of acute shortness of breath, starting around 330 this morning. He believes it woke him from sleep. He reports some chest discomfort, in his lower chest or upper left abdomen. He reports this increases a little bit when he breathes. He has a past history of multiple pneumonia secondary to aspiration. He reports he is coughing. He did not remember having any fever at home. He denies any vomiting, or diarrhea. In the emergency department he received some Rocephin, Zithromax, dexamethasone, breathing treatment. I gave him some morphine, vancomycin, Zosyn. Nitroglycerin topical was added. Review of Systems General: Reports: 10 or more systems reviewed and unremarkable except in HPI and below Card: Reports: chest pain; Denies: palpitations Resp: Reports: dyspnea and non-productive cough; Denies: hemoptysis GI: Denies: abdominal pain, nausea, vomiting, hematochezia or melena Medications/Allergies Home Medications Medication Instructions Recorded Confirmed Last Taken Type aspirin 81 mg tablet,delayed 81 mg PO BEDTIME 07/03/19 05/10/23 05/09/23 History release atorvastatin 80 mg tablet 80 mg PO BEDTIME 07/03/19 05/10/23 05/09/23 History multivitamin 1 tab PO QAM 07/03/19 05/10/23 05/10/23 History sulfasalazine 500 mg tablet 1,500 mg PO BID 07/03/19 05/10/23 05/10/23 History tamsulosin 0.4 mg capsule (Flomax) 0.8 mg PO BEDTIME 07/03/19 05/10/23 05/09/23 History sertraline 100 mg tablet 200 mg PO QAM 08/01/19 05/10/23 05/10/23 History omeprazole 20 mg tablet,delayed 40 mg PO QAM 04/20/22 05/10/23 05/10/23 History release trospium 20 mg tablet 20 mg PO BID 04/20/22 05/10/23 05/10/23 History fluticasone propionate 50 1 spray intranasal BID 08/16/22 05/10/23 05/10/23 History mcg/actuation nasal spray,suspension (Flonase Allergy Relief) trazodone 100 mg tablet 300 mg PO BEDTIME 08/16/22 05/10/23 05/09/23 History acetaminophen 500 mg tablet 1,500 mg PO Q6H PRN Pain 12/10/22 05/10/23 01/22/23 History albuterol sulfate 90 mcg/actuation 1 inh inhalation QID PRN Shortness 12/10/22 05/10/23 01/22/23 History aerosol inhaler Of Breath ascorbic acid (vitamin C) 500 mg 1,000 mg PO QAM 12/10/22 05/10/23 05/10/23 History tablet (Vitamin C) cetirizine 10 mg tablet (Zyrtec) 10 mg PO DAILY 12/10/22 05/10/23 05/10/23 History cholecalciferol (vitamin D3) 50 50 mcg PO DAILY 12/10/22 05/10/23 05/10/23 Hi story mcg (2,000 unit) capsule (Vitamin D3) diclofenac sodium 1 % topical gel 2 g topical TID PRN Pain 12/10/22 05/10/23 Unknown History (Voltaren Arthritis Pain) hydrocortisone 2.5 % topical cream 1 applic topical QID PRN unknown 12/10/22 05/10/23 Unknown History methocarbamol 750 mg tablet 750 mg PO BEDTIME 12/10/22 05/10/23 05/09/23 History nitroglycerin 0.4 mg sublingual 0.4 mg sublingual Q5M PRN Chest 12/10/22 05/10/23 Unknown History tablet (Nitrostat) Pain quetiapine 300 mg tablet (Seroquel) 150 mg PO BEDTIME 12/10/22 05/10/23 05/09/23 History tiotropium 2.5 mcg-olodaterol 2.5 2 inh inhalation DAILY 01/22/23 05/10/23 05/10/23 History mcg/actuation mist for inhalation (Stiolto Respimat) famotidine 20 mg tablet 20 mg PO BID 02/11/23 05/10/23 05/10/23 History bupropion HCl 300 mg 24 hr tablet, 300 mg PO QAM 02/14/23 05/10/23 05/10/23 History extended release (Wellbutrin XL) isosorbide mononitrate 30 mg 45 mg PO DIRECTED 03/07/23 05/10/23 05/10/23 History tablet,extended release 24 hr Acapella #1 ea 03/11/23 05/10/23 Unknown Rx guaifenesin 600 mg tablet, 600 mg PO Q12H PRN congestion #60 03/11/23 05/10/23 05/10/23 Rx extended release 12 hr (Mucinex) tabs mometasone 200 mcg/actuation HFA 2 puff inhalation BID 03/11/23 05/10/23 05/10/23 History aerosol inhaler Allergies Allergy/AdvReac Type Severity Reaction Status Date / Time naproxen Allergy Severe lip Verified 05/10/23 07:20 swelling PFSH Acute PFSH: Medical History Anxiety Coronary artery disease Depression History of recurrent ear infection Hypertension Prostate cancer Had cryogenic process performed Sleep apnea Surgical History History of neck surgery History of surgery on upper extremity Hand Hx of colonoscopy with polypectomy Family History Father Stroke Social History Smoking and tobacco/nicotine status: former use of tobacco/nicotine (0.5 ppd) Quit status (tobacco/nicotine): has quit using Year quit tobacco: 2022 Former quit date comment: 1 ppd X 60 years Second hand smoke exposure: No Alcohol intake: never Substance/Drug Use: never Lives independently: Yes Household members: spouse and family Marital status: service: Yes Current occupational status: retired Do you think of yourself as: Straight/Heterosexual Current gender identity: Male Vitals/I&O/Wt Last Vital Signs Temp 98.4 F 05/10/23 07:14 Pulse 91 05/10/23 10:24 Resp 18 05/10/23 10:12 BP 104/52 05/10/23 10:24 Pulse Ox 97 05/10/23 10:12 O2 Del Method Nasal Cannula 05/10/23 10:12 O2 Flow Rate 6 05/10/23 10:12 Weight last 48 hrs Weight 113.398 kg Physical Exam Narrative: General exam is a white male, reporting shortness of breath. Currently on 6 to 8 L of oxygen with a sat of 92% HEENT: Atraumatic normocephalic. Oropharynx clear Neck is supple no lymphadenopathy thyromegaly Cardiovascular slight tachycardia when I examined him, regular rhythm, no murmur Lungs minutes breath sounds bilaterally. Slight wheeze bilaterally. Abdomen is soft with positive bowel sounds. No obvious organomegaly exam was deferred Extremities no cyanosis, edema, cap refill brisk Skin no rash Neuro no obvious focal deficits Data 05/10/23 07:15 05/10/23 07:15 Other Labs: Dimer is elevated at 3.15 ABG demonstrates a pH 7.3, PCO2 41, PO2 133 on 15 L Lactic acid 3.7 initially. LFTs normal, calcium 9.0, albumin 4.3. Troponin initial 9 with repeat of 22 COVID PCR and influenza negative Chest x-ray with infiltrate right upper and lower lobe. I reviewed this. This is significantly different from previous x-ray. A CTA has been ordered. EKG which I reviewed demonstrates a right bundle branch block, initial sinus tachycardia with a rate of around 110. The right bundle branch block appears to be intermittent. Nuclear imaging stress test was performed in 2020 which overall appeared normal with no coronary ischemia CTA has been performed demonstrating no evidence of pulmonary embolism, infiltrate right perihilar upper lobe and right lower lobe with consolidation in the right base A&P Assessment and plan (1) Acute hypoxic respiratory failure: Patient presents with acute hypoxic respiratory failure secondary to pneumonia Wean oxygen as tolerated (2) Aspiration pneumonitis: Patient presents with pneumonia, likely aspiration pneumonitis given his history Speech therapy evaluation Aspiration precautions Initiate diet per speech therapy recommendations IV antibiotics consisting currently on vancomycin and Zosyn Sputum culture Urine Legionella, bacterial antigens I am checking to see if the blood cultures were done. Order if not. (3) NSTEMI (non-ST elevated myocardial infarction): Patient with significant delta troponin. He has history of stable angina according to cardiology notes recently. He has past history of stenting to his LAD and ramus in the distant history. Initially anticoagulate with Lovenox. Continue aspirin, statin Consider beta-brian Check echocardiogram (4) Coronary artery disease: See above Qualifiers: Associated angina: with unspecified angina Coronary Disease-Associated Artery/Lesion type: [place] artery [place] vs. transplanted heart: [place] heart Qualified Code(s): I25.119 - Atherosclerotic heart disease of [place] coronary artery with unspecified angina pectoris (5) Emphysema lung: Budesonide twice daily DuoNeb every 4 hours With concern of exacerbation Prednisone 40mg daily. Qualifiers: Emphysema type: unspecified Qualified Code(s): J43.9 - Emphysema, unspecified Plan Multiple other medical problems as outlined in PMH Full code. Lovenox will suffice for DVT prophylaxis. Attestations Medical Necessity Statement*: Will need greater than 2 midnight stay for evaluation and treatment of acute hypoxic respiratory failure associated with significant pneumonia, and non-ST elevation myocardial infarction Diagnoses Acute hypoxic respiratory failure J96.01 Aspiration pneumonitis J69.0 NSTEMI (non-ST elevated myocardial infarction) I21.4 Coronary artery disease I25.119 Associated angina: with unspecified angina Coronary Disease-Associated Artery/Lesion type: [place] artery [place] vs. transplanted heart: [place] heart Emphysema lung J43.9 Emphysema type: unspecified Time Spent (min) 54
[2023-05-10 11:15] LABS: Lactic Acid level (Lactate) 2.3 mmol/L (0.5-2.2)
--- NOTE | 2023-05-10 11:24 | ECG_ITS ---
[facility] Test Date: 2023-05-10 Pat Name: Chirag Osman Department: Room: Gender: Male Sole Sewer Hand: : 1945 Requested By: Jose Potter Order Number: [id number] Diana MD: Venice Griffiths M.D. Measurements Intervals [place] Rate: 92 P: 59 [place]: 115 QRS: 85 QRSD: 158 T: 25 QT: 361 QTc: 447 Interpretive Statements SINUS RHYTHM WITH SHORT WA INTERVAL WITH OCCASIONAL SUPRAVENTRICULAR PREMATURE COMPLEXES RIGHT BUNDLE BRANCH BLOCK [120+ ms QRS DURATION, UPRIGHT V1, 40+ ms S IN I/aVL/V4/V5/V6] Compared to ECG 05/10/2023 09:29:00 No significant changes Electronically Signed On 05-10-2023 12:21:58 CDT by Venice Griffiths M.D. [id number]
[2023-05-10] MEDS: aspirin 81 mg Chew Tablet 324 MG PO (11:40)
[2023-05-10] MEDS: enoxaparin 120 mg/0.8 mL Syringe 110 MG SUBCUT ×2 (11:42→23:19)
[2023-05-10] MEDS: iohexol 350 mg/mL 500 mL Btl (per mL) IV (11:46)
[2023-05-10] MEDS: piperacillin-tazobactam 3.375 GM in sodium chloride 0.9% (plus) 50 ML IV ×2 (12:06→18:34)
--- NOTE | 2023-05-10 12:27 | USCV_ITS ---
Chirag Osman Age: 78 Gender: M : 1945 Exam Date: 05/10/2023 12:57 Ordering Phys: Jose Park MD Technologist: [place]am [place] [facility] [place] nstemi BP: 87 / 54 HR: 82 Rhythm: Sinus Technical Quality: Adequate MEASUREMENTS (Male / Female) Normal Values 2D ECHO LV Diastolic Diameter PLAX 5.0 cm 4.2 - 5.9 / 3.9 - 5.3 cm LV Systolic Diameter PLAX 3.7 cm IVS Diastolic Thickness 1.0 cm 0.6 - 1.0 / 0.6 - 0.9 cm IVS Systolic Thickness 1.6 cm LVPW Diastolic Thickness 1.3 cm 0.6 - 1.0 / 0.6 - 0.9 cm LVPW Systolic Thickness 1.4 cm LVOT Diameter 2.1 cm LV Ejection Fraction 2D Teich 46.6 % LV Ejection Fraction MOD 2C 69.5 % LV Ejection Fraction 2C AL 68.0 % LA Diameter 3.8 cm M-MODE Aortic Annulus Diameter 3.7 cm LA Ao Ratio MM 1.0 MV E Point Septal Separation 1.1 cm DOPPLER AV Peak Velocity 116.0 cm/s LVOT Peak Velocity 103.0 cm/s AV Area Cont Eq vti 4.2 cm squared AV Area Cont Eq pk 3.1 cm squared MV Area PHT 4.2 cm squared Mitral E to A Ratio 0.8 MV E' Velocity 38.5 cm/s Mitral E to MV E' Ratio 8.9 Mitral E to LV E' Lateral Ratio 8.8 Mitral E to LV E' Septal Ratio 9.0 TR Peak Velocity 110.3 cm/s TR Peak Gradient 4.9 mmHg TV Peak E Velocity 92.0 cm/s Right Atrial Pressure 3.0 mmHg Pulmonary Artery Systolic Pressu 7.9 mmHg RV Acceleration Time 0.1 s FINDINGS Left Ventricle Left ventricle is normal in size. LV systolic function is normal with EF of 55 to 60%. No regional wall motion abnormalities are seen. Grade 1 diastolic dysfunction Right Ventricle Normal in size and function Right Atrium Normal in size Left Atrium Normal in size Mitral Valve Structurally normal mitral valve. Trace mitral regurgitation Aortic Valve Aortic valve is thickened. No significant stenosis or regurgitation Tricuspid Valve Mild tricuspid regurgitation. Insufficient TR jet to calculate RVSP. Pulmonic Valve Trace pulmonic regurgitation Pericardium Normal Aorta Normal in size IVC Not well visualized CONCLUSIONS LV systolic function is normal with EF of 55 to 60%. Grade 1 diastolic dysfunction Mild mitral regurgitation Mild tricuspid regurgitation Trace pulmonic regurgitation No comparison studies are available Alexander Wheeler MD (Electronically Signed) Final Date: 10 May 2023 14:15 S
[2023-05-10 13:34] LABS: Troponin 5 6HR 18.81 ng/L (0-15)
[2023-05-10 13:37] LABS: Troponin 5 6HR Delta 9.81 ng/L (0-12)
--- NOTE | 2023-05-10 15:26 | ECG_ITS ---
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 Measurements Intervals [place] Rate: 70 P: 54 [place]: 121 QRS: 76 QRSD: 119 T: 58 QT: 397 QTc: 431 Interpretive Statements SINUS RHYTHM WITH OCCASIONAL SUPRAVENTRICULAR PREMATURE COMPLEXES POSSIBLE RIGHT VENTRICULAR HYPERTROPHY [SOME/ALL OF: PROMINENT R IN V1, LATE TRANSITION, RAD, ROXANN, SSS] SEPTAL MYOCARDIAL INFARCTION , OF INDETERMINATE AGE [40+ ms Q WAVE IN V1/V2] POSSIBLE INFERIOR MYOCARDIAL INFARCTION , PROBABLY OLD [30 ms Q WAVE IN II/aVF] Compared to ECG 05/10/2023 10:16:40 Myocardial infarct finding now present Short [place] interval no longer present Right bundle-branch block no longer present Electronically Signed On 05-10-2023 16:32:22 CDT by Venice Griffiths M.D. [email or web address]
[2023-05-10] MEDS: ipratropium-albuterol 3 mL Neb INHALATION ×2 (16:43→20:16)
[2023-05-10] MEDS: sulfaSALAzine 500 mg Tablet 1500 MG PO (18:34)
[2023-05-10] MEDS: budesonide 0.5 mg/2 mL Neb INHALATION (20:16)
[2023-05-10] MEDS: methocarbamol 750 mg Tablet PO (20:48)
[2023-05-10] MEDS: tamsulosin 0.4 mg Capsule 0.8 MG PO (20:48)
[2023-05-10] MEDS: quetiapine 300 mg Tablet 150 MG PO (20:48)
[2023-05-10] MEDS: atorvastatin 40 mg Tablet 80 MG PO (20:48)
[2023-05-10] MEDS: trazodone 100 mg Tablet 300 MG PO (20:48)
[2023-05-10] MEDS: aspirin 81 mg EC Tablet PO (20:49)
[2023-05-10] MEDS: acetaminophen 325 mg Tablet 650 MG PO (20:53)
[2023-05-11] VITALS (25 sets, daily range): BP systolic 96–122; BP diastolic 51–69; PULSE 72–96; RESP 14–24; TEMP 36.2–36.8; O2SAT 89–97
[2023-05-11] MEDS: ipratropium-albuterol 3 mL Neb INHALATION ×5 (00:09→20:05)
[2023-05-11] MEDS: piperacillin-tazobactam 3.375 GM in sodium chloride 0.9% (plus) 50 ML IV ×3 (03:25→18:21)
[2023-05-11] MEDS: vancomycin 1,500 MG/300 ML PIGGYBACK 200 MG IV ×2 (04:26→22:15)
[2023-05-11 04:50] LABS: Basophils % 0.2 %; Eosinophils # 0.1 10^3/uL (0.0-0.8); Eosinophils % 0.3 %; Hematocrit 34.1 % (37-53); Lymphocytes # 1.8 10^3/uL (0.8-4.8); Lymphocytes % 10.3 %; Mean Corpuscular HGB Conc 31.7 g/dL (30-55); Mean Corpuscular Volume 91.7 fl (82-101); Mean Platelet Volume 9.2 fL (7.4-10.4); Monocytes # 1.2 10^3/uL (0.2-0.9); Neutrophils # 14.04 10^3/uL (1.8-7.7); Neutrophils % 81.6 %; Nucleated Red Blood Cells % 0 %; Platelet Count 179 10^3/cmm (157-399); Red Blood Count 3.72 10^6/uL (3.85-5.65); Red Cell Distribution Width 15.6 % (12.1-15.1); White Blood Count 17.22 10^3/uL (3.29-11.43)
[2023-05-11 05:15] LABS: Alanine Aminotransferase 12 U/L (0-41); Albumin Level 3.6 g/dL (3.5-5.2); Alkaline Phosphatase 35 U/L (40-130); Anion Gap 10.8 (5-19); Aspartate Amino Transferase 12 U/L (0-40); Blood Urea Nitrogen 24 mg/dL (8-23); Calcium 8.7 mg/dL (8.5-10.5); Carbon Dioxide 28 mmol/L (22-29); Chloride 106 mmol/L (98-107); Globulin 2.3 g/dL (1.3-4.6); Glucose 101 mg/dL (65-115); Osmolality Calculated 296 mOsm/kg (285-295); Potassium 3.8 mmol/L (3.5-5.1); Sodium 141 mmol/L (136-145); Total Bilirubin 0.5 mg/dL (0.15-1.2); Total Protein 5.9 g/dL (6.6-8.7)
[2023-05-11] MEDS: buPROPion XL (24 HR) 300 mg Tablet PO (06:15)
[2023-05-11] MEDS: sertraline 100 mg Tablet 200 MG PO (06:15)
--- NOTE | 2023-05-11 07:32 | PM.PN ---
Documented by User: Juliane Hinds 05/11/23 08:35 Subjective Subjective: Today, pt reports poor sleep overnight. He said he has had significant productive cough that is white in appearance. He still maintains shortness of breath, but denies any chest pain or discomfort. His only other concern this morning was some mild epigastric tenderness that was present. He has not other concerns at this time. Vitals/I&O/Wt Last Vital Signs Temp 98.2 F 05/11/23 04:00 Pulse 80 05/11/23 06:00 Resp 22 H 05/11/23 06:00 BP 117/69 05/11/23 05:00 Pulse Ox 97 05/11/23 06:00 O2 Del Method Oxymask 05/11/23 00:10 O2 Flow Rate 3 05/11/23 04:00 05/10/23 05/11/23 05/11/23 22:59 06:59 14:59 Intake Total 820 / 820 Output Total 490 / 490 1040 / 1530 Balance 330 / 330 -1040 / -710 Weight last 48 hrs Weight 126.008 kg Weight 113.398 kg Physical Exam Narrative: General exam is a white male, still short of breath. Was using Oxymask over night to maintain good O2 sats. Myoclonus/tremors improved since yesterday. Neck is supple. Cardiovascular regular rate and rhythm, no murmur Lungs: decreased breath sounds bilaterally. Slight wheeze bilaterally, but improved since yesterday. Abdomen is soft with positive bowel sounds. Mild epigastric tenderness upon palpation. Extremities no cyanosis, edema, cap refill brisk Data 05/11/23 04:10 05/11/23 04:10 Other Labs: Magnesium normal at 2. LFTs normal Protein 5.9 Troponins yesterday showed decrease in troponin T at 120 min to 6 hr and normal delta. Chest CTA yesterday showed no evidence of PE. Stable round atelectisis of Left lower lobe. New infiltrates in RIGHT perihilar upper lobe and RIGHT lower lobe with developing consolidation in base. Bronchovascular thickening around right hilum. Sputum culture pending. Urine bacterial antigens negative. Legionella antigen negative. Blood cultures pending. Echo yesterday shows EF of 55-60% with no wall motion abnormalities. Grade 1 diastolic dysfunction, mild mitral and and tricuspid regurgitation. Trace pulmonic valve regurgitation. Order MRSA PCR Micro: Microbiology 05/10/23 14:06 Bacterial Antigens - Final Urine,Voided 05/10/23 14:06 Legionella Urinary Antigen - Final Urine,Clean Catch 05/10/23 12:00 Blood Culture - Preliminary Blood SPECIMEN COLLECTED 05/10/23 11:56 Blood Culture - Preliminary Blood SPECIMEN COLLECTED A&P Assessment and plan (1) Acute hypoxic respiratory failure: Patient continues to be short of breath and has evidence of pneumonia. Will continue oxygen and wean oxygen as tolerated (2) Aspiration pneumonitis: Patient with evidence of pneumonia, likely aspiration pneumonitis given his history Speech therapy evaluation done yesterday. Will continue to collaborate with them. Aspiration precautions Diet per speech: regular liquids, minced and moist foods. Can likely be changed to regular diet when pt's dentures arrive to hospital. Feeding recommendation to alternate liquids and solids. IV antibiotics consisting currently on vancomycin and Zosyn Sputum culture pending. Blood cultures pending. Urine Legionella, bacterial antigens negative Order MRSA PCR (3) NSTEMI (non-ST elevated myocardial infarction): Patient with significant delta troponin at T120, but by 6 hr, troponin had decreased to 18 and delta was 9.81. He has history of stable angina according to cardiology notes recently. He has past history of stenting to his LAD and ramus in the distant history. Because troponins are stable, pt is without chest pain or signs of instability, will not pursue further investigation at this time. May reassess need for stress testing once pt's acute condition is better or in outpatient setting. Continue to anticoagulate with Lovenox. Continue aspirin, statin Consider beta-brian Echo yesterday shows EF of 55-60% with no wall motion abnormalities. Grade 1 diastolic dysfunction, mild mitral and and tricuspid regurgitation. Trace pulmonic valve regurgitation. Will continue Lovenox at current dose for today, decrease to DVT prphylaxis tomorrow. (4) Coronary artery disease: See above Qualifiers: Associated angina: with unspecified angina Coronary Disease-Associated Artery/Lesion type: [place] artery [place] vs. transplanted heart: [place] heart Qualified Code(s): I25.119 - Atherosclerotic heart disease of [place] coronary artery with unspecified angina pectoris (5) Emphysema lung: Continue Budesonide twice daily Continue DuoNeb every 4 hours. Pt refused at 4:20 am this morning but was getting them prior. With concern of exacerbation, continue Prednisone 40mg daily. Qualifiers: Emphysema type: unspecified Qualified Code(s): J43.9 - Emphysema, unspecified Plan Decreased Zoloft to 100 and trazadone to 100 due to concern of serotonin syndrome because of pt's myoclonic activity. Instructed pt to follow-up with doctor at [place] if decreased doses need to continue. Multiple other medical problems as outlined in PMH Full code. Lovenox will suffice for DVT prophylaxis. Coding Level of Care Code 14535 Diagnoses Acute hypoxic respiratory failure J96.01 Aspiration pneumonitis J69.0 NSTEMI (non-ST elevated myocardial infarction) I21.4 Coronary artery disease I25.119 Associated angina: with unspecified angina Coronary Disease-Associated Artery/Lesion type: [place] artery [place] vs. transplanted heart: [place] heart Emphysema lung J43.9 Emphysema type: unspecified Time Spent (min) 24 Documented by User: Jose Park MD 05/11/23 10:34 Subjective Subjective: Today, pt reports poor sleep overnight. He said he has had significant productive cough that is white in appearance. He still maintains shortness of breath, but denies any chest pain or discomfort. His only other concern this morning was some mild epigastric tenderness that was present. He has not other concerns at this time. Patient was seen in tandem with the medical student and this note was created with them. Medications: Reviewed: Yes Data 05/11/23 04:10 05/11/23 04:10 A&P Assessment and plan (1) Acute hypoxic respiratory failure: (2) Aspiration pneumonitis: Patient with evidence of pneumonia, likely aspiration pneumonitis given his history Speech therapy evaluation done yesterday. Will continue to collaborate with them. Aspiration precautions Diet per speech: regular liquids, minced and moist foods. Can likely be changed to regular diet when pt's dentures arrive to hospital. Feeding recommendation to alternate liquids and solids. IV antibiotics consisting currently on vancomycin and Zosyn Sputum culture pending. Blood cultures pending. Urine Legionella, bacterial antigens negative Order MRSA PCR Follow vancomycin levels closely. CBC and BMP daily to monitor for any renal dysfunction associated with IV antibiotics particularly vancomycin (3) NSTEMI (non-ST elevated myocardial infarction): Patient with significant delta troponin at T120, but by 6 hr, troponin had decreased to 18 and delta was 9.81. He has history of stable angina according to cardiology notes recently. He has past history of stenting to his LAD and ramus in the distant history. Because troponins are stable, pt is without chest pain or signs of instability, will not pursue further investigation at this time. May reassess need for stress testing once pt's acute condition is better or in outpatient setting. Continue to anticoagulate with Lovenox. Continue aspirin, statin Consider beta-brian Echo yesterday shows EF of 55-60% with no wall motion abnormalities. Grade 1 diastolic dysfunction, mild mitral and and tricuspid regurgitation. Trace pulmonic valve regurgitation. Will continue Lovenox at current dose for today, decrease to DVT prphylaxis tomorrow. (4) Coronary artery disease: Qualifiers: Associated angina: with unspecified angina Coronary Disease-Associated Artery/Lesion type: [place] artery [place] vs. transplanted heart: [place] heart Qualified Code(s): I25.119 - Atherosclerotic heart disease of [place] coronary artery with unspecified angina pectoris (5) Emphysema lung: Qualifiers: Emphysema type: unspecified Qualified Code(s): J43.9 - Emphysema, unspecified Plan Decreased Zoloft to 100 and trazadone to 100 due to concern of serotonin syndrome because of pt's myoclonic activity. Instructed pt to follow-up with doctor at [place] if decreased doses need to continue. He is on quite a few medications that affect serotonin levels. Multiple other medical problems as outlined in H Full code. Lovenox will suffice for DVT prophylaxis. May transfer to cardiac stepdown unit. Attestations Medical Necessity Statement*: Needs continued hospitalization for IV antibiotics secondary to pneumonia that is still requiring oxygen. Diagnoses Acute hypoxic respiratory failure J96.01 Aspiration pneumonitis J69.0 NSTEMI (non-ST elevated myocardial infarction) I21.4 Coronary artery disease I25.119 Associated angina: with unspecified angina Coronary Disease-Associated Artery/Lesion type: [place] artery [place] vs. transplanted heart: [place] heart Emphysema lung J43.9 Emphysema type: unspecified Time Spent (min) 24
[2023-05-11] MEDS: budesonide 0.5 mg/2 mL Neb INHALATION ×2 (08:33→20:05)
[2023-05-11] MEDS: pantoprazole DR 40 mg Tablet PO ×2 (08:44→18:20)
[2023-05-11] MEDS: cetirizine 10 mg Tablet PO (08:44)
[2023-05-11] MEDS: isosorbide mononitrate ER 30 mg Tablet PO (08:44)
[2023-05-11] MEDS: sulfaSALAzine 500 mg Tablet 1500 MG PO ×2 (08:44→18:20)
[2023-05-11] MEDS: predniSONE 20 mg Tablet 40 MG PO (08:44)
[2023-05-11] MEDS: enoxaparin 120 mg/0.8 mL Syringe 110 MG SUBCUT ×2 (11:33→22:20)
[2023-05-11] MEDS: acetaminophen 325 mg Tablet 650 MG PO ×2 (12:09→18:30)
[2023-05-11] MEDS: quetiapine 300 mg Tablet 150 MG PO (20:39)
[2023-05-11] MEDS: atorvastatin 40 mg Tablet 80 MG PO (20:39)
[2023-05-11] MEDS: tamsulosin 0.4 mg Capsule 0.8 MG PO (20:39)
[2023-05-11] MEDS: methocarbamol 750 mg Tablet PO (20:41)
[2023-05-11] MEDS: trazodone 100 mg Tablet PO (20:42)
[2023-05-11] MEDS: aspirin 81 mg EC Tablet PO (20:42)
[2023-05-12] VITALS (23 sets, daily range): BP systolic 106–129; BP diastolic 57–76; PULSE 69–86; RESP 14–32; TEMP 36.6–37.3; O2SAT 84–99
[2023-05-12] MEDS: piperacillin-tazobactam 3.375 GM in sodium chloride 0.9% (plus) 50 ML IV ×3 (02:19→19:06)
[2023-05-12 04:27] LABS: Basophils % 0.2 %; Eosinophils # 0.3 10^3/uL (0.0-0.8); Eosinophils % 1.7 %; Hematocrit 31.5 % (37-53); Lymphocytes # 2.1 10^3/uL (0.8-4.8); Lymphocytes % 13.4 %; Mean Corpuscular HGB Conc 31.7 g/dL (30-55); Mean Corpuscular Hemoglobin 29.6 pg (27-33); Mean Corpuscular Volume 93.2 fl (82-101); Mean Platelet Volume 9.9 fL (7.4-10.4); Monocytes # 0.9 10^3/uL (0.2-0.9); Neutrophils # 12.03 10^3/uL (1.8-7.7); Neutrophils % 78.1 %; Nucleated Red Blood Cells % 0 %; Platelet Count 176 10^3/cmm (157-399); Red Blood Count 3.38 10^6/uL (3.85-5.65); Red Cell Distribution Width 15.7 % (12.1-15.1)
[2023-05-12 04:46] LABS: Alanine Aminotransferase 11 U/L (0-41); Albumin Level 3.3 g/dL (3.5-5.2); Alkaline Phosphatase 40 U/L (40-130); Anion Gap 12.1 (5-19); Aspartate Amino Transferase 11 U/L (0-40); Blood Urea Nitrogen 20 mg/dL (8-23); Calcium 8.8 mg/dL (8.5-10.5); Carbon Dioxide 26 mmol/L (22-29); Chloride 106 mmol/L (98-107); Globulin 2.6 g/dL (1.3-4.6); Glucose 112 mg/dL (65-115); Osmolality Calculated 293 mOsm/kg (285-295); Potassium 4.1 mmol/L (3.5-5.1); Sodium 140 mmol/L (136-145); Total Bilirubin 0.3 mg/dL (0.15-1.2); Total Protein 5.9 g/dL (6.6-8.7)
[2023-05-12] MEDS: sertraline 100 mg Tablet PO (05:32)
[2023-05-12] MEDS: buPROPion XL (24 HR) 300 mg Tablet PO (05:32)
--- NOTE | 2023-05-12 08:20 | P.PN_ITS ---
Subjective Subjective: Chirag reports he feels little bit better. Still coughing quite a bit. Abdominal pain may be slightly better, but is still present. Does not feel short of breath. Medications: Reviewed: Yes Vitals/I&O/Wt Last Vital Signs Temp 99.1 F 05/12/23 07:51 Pulse 78 05/12/23 07:51 Resp 20 H 05/12/23 07:51 BP 106/71 05/12/23 07:51 Pulse Ox 95 05/12/23 07:51 O2 Del Method Aerosol Mask 05/12/23 07:51 O2 Flow Rate 3 05/11/23 20:09 05/11/23 05/12/23 05/12/23 22:59 06:59 14:59 Intake Total 1040 / 1570 850 / 2420 Output Total 320 / 620 850 / 1470 Balance 720 / 950 0 / 950 Weight last 48 hrs Weight 123.15 kg Weight 126.008 kg Physical Exam Narrative: General exam is a white male, who appears less short of breath currently on 3 L of oxygen Neck is supple no lymphadenopathy thyromegaly Cardiovascular slight tachycardia when I examined him, regular rhythm, no murmur Lungs very faint expiratory wheeze noted Abdomen is soft with positive bowel sounds. No obvious organomegaly Extremities no cyanosis, edema, cap refill brisk Data 05/12/23 03:50 05/12/23 03:50 Micro: Microbiology 05/10/23 11:56 Blood Culture - Preliminary Blood NEGATIVE TO DATE 05/10/23 12:00 Blood Culture - Preliminary Blood NEGATIVE TO DATE A&P Assessment and plan (1) Acute hypoxic respiratory failure: Slowly improving Wean oxygen. (2) Aspiration pneumonitis: Patient with evidence of pneumonia, likely aspiration pneumonitis given his history Speech therapy evaluation done yesterday. Will continue to collaborate with them. Continue aspiration precautions IV antibiotics consisting currently on vancomycin and Zosyn. Awaiting sputum culture and MRSA PCR. Blood cultures negative to date Urine Legionella, bacterial antigens negative Order MRSA PCR Follow vancomycin levels closely. CBC and BMP daily to monitor for any renal dysfunction associated with IV antibiotics particularly vancomycin White blood cell count slowly decreasing Chest xray in AM (3) NSTEMI (non-ST elevated myocardial infarction): Patient with significant delta troponin at T120, but by 6 hr, troponin had decreased to 18 and delta was 9.81. He has history of stable angina according to cardiology notes recently. He has past history of stenting to his LAD and ramus in the distant history. Because troponins are stable, pt is without chest pain or signs of instability, will not pursue further investigation at this time. May reassess need for stress testing once pt's acute condition is better or in outpatient setting. Continue to anticoagulate with Lovenox. Continue aspirin, statin Consider beta-rbian Echo yesterday shows EF of 55-60% with no wall motion abnormalities. Grade 1 diastolic dysfunction, mild mitral and and tricuspid regurgitation. Trace pulmonic valve regurgitation. Discontinue full dose anticoagulation (4) Coronary artery disease: See above Qualifiers: Coronary Disease-Associated Artery/Lesion type: [place] artery [place] vs. transplanted heart: [place] heart Associated angina: with unspecified angina Qualified Code(s): I25.119 - Atherosclerotic heart disease of [place] coronary artery with unspecified angina pectoris (5) Emphysema lung: Continue Budesonide twice daily Continue DuoNeb every 4 hours. Continue prednisone Qualifiers: Emphysema type: unspecified Qualified Code(s): J43.9 - Emphysema, unspecified Plan Decreased Zoloft to 100 and trazadone to 100 due to concern of serotonin syndrome because of pt's myoclonic activity. Instructed pt to follow-up with doctor at [place] if decreased doses need to continue. He is on quite a few medications that affect serotonin levels. Multiple other medical problems as outlined in PMH Full code. Lovenox will suffice for DVT prophylaxis. Attestations Medical Necessity Statement*: Needs continued hospitalization for IV antibiotics secondary to pneumonia Diagnoses Acute hypoxic respiratory failure J96.01 Aspiration pneumonitis J69.0 NSTEMI (non-ST elevated myocardial infarction) I21.4 Coronary artery disease I25.119 Coronary Disease-Associated Artery/Lesion type: [place] artery [place] vs. transplanted heart: [place] heart Associated angina: with unspecified angina Emphysema lung J43.9 Emphysema type: unspecified Time Spent (min) 24
[2023-05-12] MEDS: predniSONE 20 mg Tablet 40 MG PO (08:39)
[2023-05-12] MEDS: pantoprazole DR 40 mg Tablet PO ×2 (08:39→18:10)
[2023-05-12] MEDS: isosorbide mononitrate ER 30 mg Tablet PO (08:39)
[2023-05-12] MEDS: sulfaSALAzine 500 mg Tablet 1500 MG PO ×2 (08:39→18:10)
[2023-05-12] MEDS: cetirizine 10 mg Tablet PO (08:39)
[2023-05-12] MEDS: enoxaparin 40 mg/0.4 mL Syringe SUBCUT (09:42)
[2023-05-12] MEDS: ipratropium-albuterol 3 mL Neb INHALATION ×3 (09:49→20:20)
[2023-05-12] MEDS: budesonide 0.5 mg/2 mL Neb INHALATION ×2 (09:49→20:20)
--- NOTE | 2023-05-12 12:28 | FL_ITS ---
WS: [id number] MODIFIED BARIUM SWALLOW HISTORY: Oropharyngeal dysphagia FLUOROSCOPY TIME: 2min [id number] # of spot films: [id number] COMPARISON: 04/09/2022 Modified barium swallow was performed by the speech pathologist. Fluoroscopy was provided with the pa tient in a lateral projection. Multiple food consistencies were provided. Patient swallowed all food consistencies without difficulty. No aspiration or laryngeal penetration. There is mild delay in emptying of the esophagus due to dysmotility. Barium tablet was swallowed with out difficulty. Very mild delay in transit of the barium tablet due to the esophageal dysmotility. No stenosis. IMPRESSION: 1. No aspiration or laryngeal penetration. 2. Mild esophageal dysmotility. Similar to the prior study of 04/09/2022. Please see speech therapist report also for recommendations.
[2023-05-12] MEDS: acetaminophen 325 mg Tablet 650 MG PO (13:37)
[2023-05-12 15:56] LABS: Vancomycin Trough 7.5 ug/mL (10-15)
[2023-05-12] MEDS: vancomycin 1,500 MG/300 ML PIGGYBACK 200 MG IV (16:50)
--- NOTE | 2023-05-12 19:57 | PC.PHAR ---
[id number] VANCOMYCIN: FIRST TROUGH 7.5, 15-20 REQUESTED. ADJUSTED DOSE AND FREQUENCY TO 2000 MG Q12H. NEXT LEVEL 05/14 - 1600.
[2023-05-12] MEDS: methocarbamol 750 mg Tablet PO (20:00)
[2023-05-12] MEDS: aspirin 81 mg EC Tablet PO (20:00)
[2023-05-12] MEDS: trazodone 100 mg Tablet PO (20:00)
[2023-05-12] MEDS: quetiapine 300 mg Tablet 150 MG PO (20:00)
[2023-05-12] MEDS: atorvastatin 40 mg Tablet 80 MG PO (20:00)
[2023-05-12] MEDS: tamsulosin 0.4 mg Capsule 0.8 MG PO (20:00)
[2023-05-13] VITALS (9 sets, daily range): BP systolic 130–145; BP diastolic 75–79; PULSE 71–82; RESP 16–25; TEMP 36.4–37.5; O2SAT 86–98
[2023-05-13] MEDS: piperacillin-tazobactam 3.375 GM in sodium chloride 0.9% (plus) 50 ML IV (02:19)
[2023-05-13 03:39] LABS: Basophils % 0.2 %; Eosinophils # 0.2 10^3/uL (0.0-0.8); Eosinophils % 1.6 %; Hematocrit 30.2 % (37-53); Lymphocytes % 14.7 %; Mean Corpuscular HGB Conc 31.5 g/dL (30-55); Mean Corpuscular Hemoglobin 29.1 pg (27-33); Mean Corpuscular Volume 92.6 fl (82-101); Mean Platelet Volume 9.7 fL (7.4-10.4); Monocytes # 0.8 10^3/uL (0.2-0.9); Neutrophils % 76.9 %; Nucleated Red Blood Cells % 0 %; Platelet Count 168 10^3/cmm (157-399); Red Blood Count 3.26 10^6/uL (3.85-5.65); Red Cell Distribution Width 15.4 % (12.1-15.1); White Blood Count 13.79 10^3/uL (3.29-11.43)
[2023-05-13 04:03] LABS: Anion Gap 12.1 (5-19); Blood Urea Nitrogen 16 mg/dL (8-23); Carbon Dioxide 28 mmol/L (22-29); Chloride 105 mmol/L (98-107); Glucose 97 mg/dL (65-115); Osmolality Calculated 293 mOsm/kg (285-295); Potassium 4.1 mmol/L (3.5-5.1); Sodium 141 mmol/L (136-145)
[2023-05-13] MEDS: buPROPion XL (24 HR) 300 mg Tablet PO (05:24)
[2023-05-13] MEDS: vancomycin 2,000 MG/400 ML PIGGYBACK 200 MG IV (05:24)
[2023-05-13] MEDS: sertraline 100 mg Tablet PO (05:24)
--- NOTE | 2023-05-13 07:00 | XRR_ITS ---
PROCEDURE INFORMATION: Exam: XR Chest Exam date and time: 05/13/2023 8:05 AM Age: 78 years old Clinical indication: Condition or disease; Lung condition and disease; Patient HX: Follow up pneumonia; PT was getting a breathing treatment.No history of trauma or recent surgery is provided. TECHNIQUE: Imaging protocol: Radiologic exam of the chest. 1image(s) are provided. Views: 1 view. COMPARISON: 1. CR XR chest 1V portable [id number] 05/10/2023 7:[address] angio chest PE protcl [id number] 05/10/2023 10:42 AM FINDINGS: Lungs: There is some persistent patchy atelectatic consolidation at the lung bases although somewhat decreased in density for example on the right suggestive of interval improvement. This can also be seen with some multifocal inflammatory or aspiration related sequela. Pleural spaces: There is some minimal costophrenic angle blunting. No pneumothorax is appreciated. Heart/Mediastinum: The cardiomediastinal silhouette is upper normal in size.This can be seen with central averaging as well as alex enlargement.No cardiac decompensation is appreciated. Diaphragm: There is slight asymmetric right hemidiaphragm elevation. Bones/joints: Osseous alignment is maintained.No interval displaced fracture or dislocation is appreciated. There is some chronic appearing degenerative changes of the shoulders. There are postsurgical changes of the cervical spine demonstrated. Soft tissues: No radiopaque foreign body or subcutaneous emphysema is appreciated. Other findings: Patient is slightly rotated. No other significant interval changes are appreciated. XR/XR chest 1V portable [id number] IMPRESSION: There is some persistent patchy airspace or aspiration related changes of the lung bases although with decreased density suggestive of some slight interval improvement.
[2023-05-13] MEDS: acetaminophen 325 mg Tablet 650 MG PO (07:43)
[2023-05-13] MEDS: budesonide 0.5 mg/2 mL Neb INHALATION (07:58)
[2023-05-13] MEDS: ipratropium-albuterol 3 mL Neb INHALATION (07:58)
[2023-05-13] MEDS: isosorbide mononitrate ER 30 mg Tablet PO (09:09)
[2023-05-13] MEDS: pantoprazole DR 40 mg Tablet PO (09:09)
[2023-05-13] MEDS: predniSONE 20 mg Tablet 40 MG PO (09:10)
[2023-05-13] MEDS: cetirizine 10 mg Tablet PO (09:10)
[2023-05-13] MEDS: sulfaSALAzine 500 mg Tablet 1500 MG PO (09:10)
[2023-05-13] MEDS: enoxaparin 40 mg/0.4 mL Syringe SUBCUT (09:12)
--- NOTE | 2023-05-13 09:55 | P.DS_ITS ---
Discharge Providers Date of Admission: 05/10/23 11:25 Date of Discharge: May 13, 2023 Attending Provider at Admission: Jose Park MD Attending Provider at Discharge: Jose Park MD Primary Care Provider: Jessica Heredia MD Diagnoses at Discharge Discharge Diagnosis (1) Acute hypoxic respiratory failure: Status: Acute (2) Aspiration pneumonitis: Status: Acute (3) NSTEMI (non-ST elevated myocardial infarction): Status: Acute (4) Coronary artery disease: Status: Acute Qualifiers: Associated angina: with unspecified angina Coronary Disease-Associated Artery/Lesion type: [place] artery [place] vs. transplanted heart: [place] heart Qualified Code(s): I25.119 - Atherosclerotic heart disease of [place] coronary artery with unspecified angina pectoris (5) Emphysema lung: Status: Acute Qualifiers: Emphysema type: unspecified Qualified Code(s): J43.9 - Emphysema, unspecified Reason for Visit Reason for Visit: sob Hospital Course Hospital Course Chirag is a 78-year-old male with history of aspiration pneumonitis who presents to the hospital short of breath. Significant right lung pneumonia is noted, suspected to be secondary to aspiration. He could not remember a specific asp iration event however. He was admitted and placed on IV Zosyn and vancomycin. He required a significant amount of oxygen initially, up to 6 L. Over the course of his hospitalization he gradually improved, on IV antibiotics and pulmonary toilet. By May 13 he was afebrile. He was on 2 L of oxygen. He was eager to go home. Home O2 evaluation was performed and discharged arranged. He was discharged on Augmentin as well as doxycycline. MRSA PCR is pending at time of discharge. On admission he was also complaining of some chest discomfort. He had minimal elevation of troponin at 2 hours, which went back down at 6 hours. He had past history of coronary disease. He had no concerning EKG changes. This elevation occurred during the time of presentation. For this reason he will get a nuclear stress test as an outpatient within the next week. He will continue his normal cardiac meds including aspirin, Imdur. He and his were given opportunity ask questions, and agreed with the plan. He also had an echocardiogram done while in the hospital which showed preserved EF and no wall motion abnormalities. Modified barium swallow was also done in the hospital and recommendations were given by speech therapy. Physical Exam Narrative: General exam no distress Neck is supple Cardiovascular regular rate and rhythm Lungs clear but with diminished breath sounds bilaterally Abdomen is soft positive bowel sounds Extremities no cyanosis clubbing or edema Discharge Data Studies Completed and Pending Completed Studies During Hospitalization Category Date Time Status CT angio chest PE protcl [id number] Stat Cat Scan 05/10/23 09:08 Completed MBS [FL barium swallow modifd 20420] Routine Exams 05/12/23 12:28 Completed XR chest 1V portable [id number] Routine Exams 05/13/23 07:00 Completed XR chest 1V portable [id number] Stat Exams 05/10/23 07:07 Completed CV. echo complete* [id number] Stat Ultrasound 05/10/23 12:27 Completed Pending at discharge Category Date Time Status Blood Culture Stat Lab 05/10/23 12:00 Results MRSA [Methicillin Resistant S.aureu] Routine Lab 05/12/23 08:36 Received Sputum Culture and Gram Stain Stat Lab 05/10/23 21:00 Results Vancomycin Trough Timed Lab 05/14/23 16:00 Ordered Radiology Impressions Chest X-Ray 05/13/23 07:00 IMPRESSION: There is some persistent patchy airspace or aspiration related changes of the lung bases although with decreased density suggestive of some slight interval improvement. Laboratory Results WBC 13.79 10^3/uL (3.29-11.43) H 05/13/23 03:10 RBC 3.26 10^6/uL (3.85-5.65) L 05/13/23 03:10 Hgb 9.50 g/dL (11.27-16.99) L 05/13/23 03:10 Hct 30.2 % (37-53) L 05/13/23 03:10 MCV 92.6 fl (82-101) 05/13/23 03:10 MCH 29.1 pg (27-33) 05/13/23 03:10 MCHC 31.5 g/dL (30-55) 05/13/23 03:10 RDW 15.4 % (12.1-15.1) H 05/13/23 03:10 Plt Count 168 10^3/cmm (157-399) 05/13/23 03:10 MPV 9.7 fL (7.4-10.4) 05/13/23 03:10 Neut % (Auto) 76.9 % 05/13/23 03:10 Lymph % (Auto) 14.7 % 05/13/23 03:10 Russell % (Auto) 6.0 % 05/13/23 03:10 Eos % (Auto) 1.6 % 05/13/23 03:10 Baso % (Auto) 0.2 % 05/13/23 03:10 Neut # (Auto) 10.60 10^3/uL (1.8-7.7) H 05/13/23 03:10 Lymph # (Auto) 2.0 10^3/uL (0.8-4.8) 05/13/23 03:10 Russell # (Auto) 0.8 10^3/uL (0.2-0.9) 05/13/23 03:10 Eos # (Auto) 0.2 10^3/uL (0.0-0.8) 05/13/23 03:10 Baso # (Auto) 0.0 10^3/uL (0.0-0.1) 05/13/23 03:10 Nucleated RBC % (auto) 0 % 05/13/23 03:10 Nucleated RBCs # 0.0 /100WBC 05/13/23 03:10 D-Dimer 3.15 ug/mLFEU (0-0.59) H 05/10/23 07:15 Specimen Type Arterial 05/10/23 07:23 Sample Site Radial, left 05/10/23 07:23 ABG pH 7.38 (7.35-7.45) 05/10/23 07:23 ABG pCO2 41.1 mmHg (35-45) 05/10/23 07:23 ABG pO2 133.0 mmHg (80.0-100.0) H 05/10/23 07:23 ABG HCO3 24.1 mmol/L (22-26) 05/10/23 07: ABG O2 Saturation 98.1 05/10/23 07: ABG Base Excess -1.1 mmol/L (-2.0-2.0) 05/10/23 07:23 [place] Test Pos 05/10/23 07:23 A-a O2 Gradient Not Reportable 05/10/23 07: Hematocrit 40.0 % (42-52) L 05/10/23 07:23 Hgb O2 Saturation 96.8 % (95-100) 05/10/23 07:23 Carboxyhemoglobin 0.6 %THgb (0.4-20.1) 05/10/23 07: Methemoglobin 0.7 % (0.4-1.5) 05/10/23 07:23 Total Hemoglobin 13.1 g/dL (14-18) L 05/10/23 07:23 Sodium 139.0 mmol/L (131-143) 05/10/23 07:23 Potassium 3.7 mmol/L (3.5-5.0) 05/10/23 07:23 Glucose 118.0 mg/dL (70-115) H 05/10/23 07:23 Ionized Calcium 1.2 mmol/L (1.1-1.4) 05/10/23 07:23 O2 Delivery Device Oxy mask 05/10/23 07: O2 Liters/Min 15.0 % 05/10/23 07:23 [employer] ID Cak 05/10/23 07:23 Sodium 141 mmol/L (136-145) 05/13/23 03:10 Potassium 4.1 mmol/L (3.5-5.1) 05/13/23 03:10 Chloride 105 mmol/L (98-107) 05/13/23 03:10 Carbon Dioxide 28 mmol/L (22-29) 05/13/23 03:10 Anion Gap 12.1 (5-19) 05/13/23 03:10 BUN 16 mg/dL (8-23) 05/13/23 03:10 Creatinine 0.7 mg/dL (0.7-1.2) 05/13/23 03:10 GFR Calculation Not Reportable 05/13/23 03:10 Glucose 97 mg/dL (65-115) 05/13/23 03:10 Calculated Osmolality 293 mOsm/kg (285-295) 05/13/23 03:10 Lactic Acid 3.7 mmol/L (0.5-2.2) H 05/10/23 07:15 Lactic Acid (Sepsis) 2.3 mmol/L (0.5-2.2) H 05/10/23 10:28 Calcium 9.0 mg/dL (8.5-10.5) 05/13/23 03:10 Magnesium 2.0 mg/dL (1.7-2.3) 05/12/23 03:50 Total Bilirubin 0.3 mg/dL (0.15-1.2) 05/12/23 03:50 AST 11 U/L (0-40) 05/12/23 03:50 ALT 11 U/L (0-41) 05/12/23 03:50 Alkaline Phosphatase 40 U/L (40-130) 05/12/23 03:50 Troponin T Baseline 9 ng/L (0-15) 05/10/23 07:15 Troponin T 120 Minute 22.16 ng/L (0-15) H 05/10/23 09:30 Delta Troponin T 13.16 ABS# (0-10) H* 05/10/23 09:30 Troponin T Hi Sens 6Hr 18.81 ng/L (0-15) H 05/10/23 13:05 Troponin T Hi Sens 6Hr Delta 9.81 ng/L (0-12) 05/10/23 13:05 Total Protein 5.9 g/dL (6.6-8.7) L 05/12/23 03:50 Albumin 3.3 g/dL (3.5-5.2) L 05/12/23 03:50 Globulin 2.6 g/dL (1.3-4.6) 05/12/23 03:50 Vancomycin Trough 7.5 ug/mL (10-15) L 05/12/23 15:09 Coronavirus 229E (PCR) Not detected (NOT DETECT) 05/10/23 07:53 Influenza Type A Ag negative (Negative) 05/10/23 07:53 Influenza Type B Ag negative (Negative) 05/10/23 07:53 SARS-CoV-2 (PCR) Not detected (NOT DETECT) 05/10/23 07:53 Vitals Last Vital Signs Temp 98.1 F 05/13/23 08:00 Pulse 78 05/13/23 08:11 Resp 25 H 05/13/23 08:00 BP 130/75 05/13/23 08:00 Pulse Ox 86 L 05/13/23 09:13 O2 Del Method Oxymask 05/13/23 07:59 O2 Flow Rate 2 05/13/23 09:13 Discharge Plan Discharge Patient Disposition: Home Condition: Stable Prescriptions: New amoxicillin-pot clavulanate 875-125 mg tablet 1 tab PO BID Qty: 14 0RF doxycycline hyclate 100 mg capsule 100 mg PO BID 7 Days Qty: 14 0RF Continued aspirin 81 mg tablet,delayed release (DR/EC) 81 mg PO BEDTIME atorvastatin 80 mg tablet 80 mg PO BEDTIME sulfasalazine 500 mg tablet 1,500 mg PO BID Hold Instructions: Resume on 02/01/23. tamsulosin [Flomax] 0.4 mg capsule 0.8 mg PO BEDTIME multivitamin Tablet 1 tab PO QAM fluticasone propionate [Flonase Allergy Relief] 50 mcg/actuation spray,suspension 1 spray INTRANASAL BID mometasone 200 mcg/actuation HFA aerosol inhaler 2 puff inhalation BID (DME) Acapella See Rx Instructions .Route .MEDSUPPLY Qty: 1 0RF Rx Instructions: As directed guaifenesin [Mucinex] 600 mg tablet extended release 12hr 600 mg PO Q12H PRN (Reason: congestion) Qty: 60 6RF trospium 20 mg tablet 20 mg PO BID Rx Instructions: administer on an empty stomach omeprazole 20 mg tablet,delayed release (DR/EC) 40 mg PO QAM isosorbide mononitrate 30 mg tablet extended release 24 hr 45 mg PO DIRECTED Rx Instructions: Take 30mg in AM Take 15mg in PM Stiolto Respimat 2.5-2.5 mcg/actuation Mist 2 inh inhalation DAILY quetiapine [Seroquel] 300 mg Tablet 150 mg PO BEDTIME cetirizine [Zyrtec] 10 mg Tablet 10 mg PO DAILY methocarbamol 750 mg Tablet 750 mg PO BEDTIME ascorbic acid (vitamin C) [Vitamin C] 500 mg Tablet 1,000 mg PO QAM nitroglycerin [Nitrostat] 0.4 mg Tablet, Sublingual 0.4 mg SUBLINGUAL Q5M PRN (Reason: Chest Pain) Rx Instructions: do not exceed 3 doses per episode hydrocortisone 2.5 % Cream 1 applic TOPICAL QID PRN (Reason: unknown) albuterol sulfate 90 mcg/actuation Hfa Aerosol Inhaler 1 inh INHALATION QID PRN (Reason: Shortness Of Breath) diclofenac sodium [Voltaren Arthritis Pain] 1 % Gel 2 g TOPICAL TID PRN (Reason: Pain) Rx Instructions: NO MORE THAN 16GM DAILY TO LOWER EXTREMETY. NO MORE THAN 8 GR DAILY TO UPPER EXTREMETY. cholecalciferol (vitamin D3) [Vitamin D3] 50 mcg (2,000 unit) Capsule 50 mcg PO DAILY bupropion HCl [Wellbutrin XL] 300 mg tablet extended release 24 hr 300 mg PO QAM Changed sertraline 100 mg tablet 100 mg PO QAM Qty: 30 0RF trazodone 100 mg tablet 200 mg PO BEDTIME Qty: 60 0RF acetaminophen 500 mg Tablet 650 mg PO Q6H PRN (Reason: Pain) Qty: 60 0RF Discontinued famotidine 20 mg Tablet 20 mg PO BID Discharge Orders: Discharge Order (Routine); Ordered 05/13/23 Ordered By: Jose Park Other Ambulatory Orders: Sestamibi Stress Test Request (Routine) Timeframe: 1 Week Facility: [facility] - Location: Cardiac Diagnostic Laboratory Ordered By: Jose Park Referrals: Jessica Heredia MD [Primary Care Provider] - 05/17/23 11:30 am Datar,Danilo Larson MD [Physician] - 3 weeks (follow up pneumonia) Pita Mccord FNP [Nurse Practitioner] - 2 weeks (follow up elevated trop) Discharge Diet: As Directed and Cardiac Discharge Activity: Increase activity as tolerated Patient Instructions: Doxycycline (By mouth) (Acticlate, Adoxa, Avidoxy, Monodox, Doryx), Acetaminophen (By mouth) (Acetaminophen Children's, A cetaminophen..., Trazodone (By mouth) (Desyrel, Desyrel Dividose, Oleptro, Trazamine), Amoxicillin/Clavulanate Potassium (By mouth) (Augmentin, Augmentin..., Sertraline (By mouth) (Zoloft), Opioid Safety, Pain Management, Post Heart Attack Stoplight Activity Restrictions/Additional Instructions: Take all medicine as prescribed Follow instructions as given by speech therapy to reduce aspiration Follow-up with pulmonary, 3 weeks, your primary care provider 3 to 5 days Nuclear stress test as an outpatient. Follow-up with cardiology regarding this, Pita Mccord in 2 weeks Home oxygen evaluation prior to discharge Discharge Attestations Time Spent in Discharge Care*: greater than 30 min (39) Quality Metrics Clinical Quality Measures [ Acute Myocardial Infaction { Clinical Trial Participant: No; Contraindication to aspirin: None; Aspirin prescribed; Contraindication to statin: None; Statin prescribed; Contraindication to PCI: Intervention not indicated;}] Coding Level of Care Code 50934 Total time (in minutes) for Discharge: 39 Diagnoses Acute hypoxic respiratory failure J96.01 Aspiration pneumonitis J69.0 NSTEMI (non-ST elevated myocardial infarction) I21.4 Coronary artery disease I25.119 Associated angina: with unspecified angina Coronary Disease-Associated Artery/Lesion type: [place] artery [place] vs. transplanted heart: [place] heart Emphysema lung J43.9 Emphysema type: unspecified
--- NOTE | 2023-05-13 13:24 | PC.SOCIAL ---
IMM Update pg 2 of IMM updated and reviewed w/ patient. Copy provided and copy dated, initialed and placed in chart.
[2023-05-13 16:09] LABS: Methicillin-Resist S.aureu PCR DETECTED (NOT DETECTED)
== END 2023-05-13 13:57 | disposition home or self-care (01) | DRG 177 ==
LOC: ER 11:44 → ICU 15:45 → CSU 05-11 14:54
PROVIDERS: Admitting Provider Internal Medicine; Emergency Provider Family Medicine; PCP Family Medicine; Visit Provider Internal Medicine
DX: J69.0 Pneumonitis due to inhalation of food and vomit (principal); I21.4 Non-ST elevation (NSTEMI) myocardial infarction; J96.01 Acute respiratory failure with hypoxia; Z87.891 Personal history of nicotine dependence; G47.30 Sleep apnea, unspecified; I10 Essential (primary) hypertension; F32.A Depression, unspecified; I25.10 Atherosclerotic heart disease of native coronary artery without angina pectoris; F41.9 Anxiety disorder, unspecified; Z87.01 Personal history of pneumonia (recurrent); J43.9 Emphysema, unspecified; Z20.822 Contact with and (suspected) exposure to COVID-19
CPT/HCPCS: 36415; 36600; 71045; 71275; 74230; 80048; 80051; 80053; 80202; 82330; 82805; 83605; 83735; 84484; 85025; 85378; 86403; 87040; 87070; 87205; 87449; 87635; 87641; 87804; 92523; 92526; 92610; 92611; 93005; 93306; 94640; 94760; 96365; 96372; 96375; 96376; 99285; J0456; J0696; J1100; J1650; J2270; J2543; J3370; J3372; J7050; J7512; J7626; Q9967

== ENCOUNTER → 2023-05-19 10:50 | Outpatient (BNVA) | payer OTHER, SELFPAY | PROVIDERS: PCP Family Medicine; Visit Provider Nurse Practitioner Family | DX: I25.119 Atherosclerotic heart disease of native coronary artery with unspecified angina pectoris (principal); Z87.891 Personal history of nicotine dependence; I10 Essential (primary) hypertension | CPT/HCPCS: 99213 ==

== ENCOUNTER → 2023-07-14 13:37 | Outpatient (BNVA) | payer OTHER, SELFPAY | PROVIDERS: PCP Family Medicine; Visit Provider Internal Medicine Pulmonary Disease | DX: Z09 Encounter for follow-up examination after completed treatment for conditions other than malignant neoplasm (principal); J69.0 Pneumonitis due to inhalation of food and vomit; R91.8 Other nonspecific abnormal finding of lung field; J43.9 Emphysema, unspecified; R13.10 Dysphagia, unspecified; Z91.89 Other specified personal risk factors, not elsewhere classified; J47.9 Bronchiectasis, uncomplicated; J94.8 Other specified pleural conditions; N28.9 Disorder of kidney and ureter, unspecified; Z87.891 Personal history of nicotine dependence | CPT/HCPCS: 99214 ==

== ENCOUNTER → 2023-11-14 10:38 | Outpatient (BNVA) | payer OTHER, SELFPAY | PROVIDERS: PCP Family Medicine; Visit Provider Nurse Practitioner Family | DX: I25.119 Atherosclerotic heart disease of native coronary artery with unspecified angina pectoris (principal); I10 Essential (primary) hypertension; Z87.891 Personal history of nicotine dependence; J69.0 Pneumonitis due to inhalation of food and vomit; R91.8 Other nonspecific abnormal finding of lung field; J43.9 Emphysema, unspecified; R13.10 Dysphagia, unspecified; Z91.89 Other specified personal risk factors, not elsewhere classified; J47.9 Bronchiectasis, uncomplicated; J94.8 Other specified pleural conditions; N28.9 Disorder of kidney and ureter, unspecified | CPT/HCPCS: 99214 ==

== ENCOUNTER → 2024-04-11 09:21 | Outpatient (BNVA) | payer OTHER, SELFPAY | PROVIDERS: PCP Family Medicine; Visit Provider Internal Medicine | DX: I25.119 Atherosclerotic heart disease of native coronary artery with unspecified angina pectoris (principal); I10 Essential (primary) hypertension; E78.5 Hyperlipidemia, unspecified; J43.9 Emphysema, unspecified; Z87.891 Personal history of nicotine dependence | CPT/HCPCS: 99214 ==

== ENCOUNTER → 2024-12-12 14:55 | Outpatient (BNVA) | payer OTHER, SELFPAY | PROVIDERS: PCP Family Medicine; Visit Provider Internal Medicine | DX: I25.119 Atherosclerotic heart disease of native coronary artery with unspecified angina pectoris (principal); I10 Essential (primary) hypertension; E78.5 Hyperlipidemia, unspecified; J43.9 Emphysema, unspecified; Z79.82 Long term (current) use of aspirin; Z87.891 Personal history of nicotine dependence | CPT/HCPCS: 99214 ==

== ENCOUNTER 2025-04-25 13:09 | Emergency (ER) | payer OTHER, SELFPAY ==
[2025-04-25 13:16] VITALS: BP 152/82; PULSE 62; RESP 16; TEMP 36.6; O2SAT 96
--- OUTSIDE RECORDS SUMMARY | 2025-04-25 13:53 | XMS_ITS | Patient Health Record ---
Author Organization [facility] Address [address] [place] [address] Care Team Providers Care Ops Analyst Name Role Phone Jessica Beard MD Primary Care Provider Unav ailable Maximo Fenton Unavailable [phone] Allergies Allergen (clinical drug ingredient) Drug/Non Drug Allergy documented on EMR Reaction Allergy Type Onset Date Status naproxen Naproxen Unknown Drug Allergy Active Reason For Referral No Information Medications Medication SIG (Take, Route, Frequency, Duration) Notes Start Date End Date Status Famotidine 20 MG Tablet 1 tablet at bedt carlos as needed Orally Once a day Active Tamsulosin HCl 0.4 MG Capsule 1 capsule Orally Once a day Active Fluticasone Propionate HFA 44 MCG/ACT Aerosol 1 puff Inhalation Twice a day Active Tiotropium [place]-Olodaterol 2.5-2.5 MCG/ACT Aerosol Solution 2 puffs Inhalation Once a day Active guaiFENesin 200 MG Tablet 1 tablet as ne eded Orally every 4 hrs Active traZODone HCl 100 MG Tablet 1 tablet at bedtime Orally Once a day Active Atorvastatin Calcium 80 MG Tablet 1 tablet Orally Once a day Active Nitroglycerin 0.4 MG Tablet Sublingual as directed Sublingual Activ e Cetirizine HCl 10 MG Tablet 1 tablet Ora lly Once a day Active Omeprazole 20 MG Capsule Delayed Release 1 capsule 30 minutes before morning meal Orally Once a day Active Cholecalciferol 50 MCG (1999 [place]) Tablet 1 tablet Orally Once a day Active Sertraline HCl 100 MG Tablet 1 tablet Or ally Once a day Active Diclofenac Sodium 1 % Gel as directed Externally Active sulfaSALAzine 500 MG Tablet 1 tablet Ora lly Twice a day Active Acetaminophen 500 MG Capsule 1 capsule a s needed Orally every 6 hrs Active Hydrocortisone 2.5 % Ointment 1 application Externally Once a day Active Trospium Chloride 20 MG Tablet 1 tablet at bedtime on an empty stomach Orally Once a day Active Albuterol Sulfate 108 (90 Base) MCG/ACT Aerosol Powder Breath Activated 1 puff as needed Inhalation every 4 hrs Active Isosorbide Dinitrate ER Active Ascorbic Acid 500 MG Tablet Chewable 1 tablet Orally Once a day Active Methocarbamol 750 MG Tablet 1 tablet Ora lly every 4 hrs Active Aspir-81 Active Multi Complete Activ e Plan Of Treatment Pending Test Test Name Order Date Electrocardiogram 12 Lead Tracing-[id number] 02/06/2024 Insurance Providers Payer Name Payer Address Payer Phone Subscriber Number Group Number Insured Name Patient Relationship to Insured Coverage Start Date Coverage End Date [employer] [address] [place] [phone] [id number] Chirag Osman Self - patient is the insured Medical (General) History Medical History History ICD Code cancer measles mumps Chicken Pox Pneumonia Heart Disease Arthritis hemorrhoids Back Trouble cancer Surgical History Surgery Date(Month/Year) Excision mass on right hand 02/16/2024 Hemorrhoidectomy Hand Sx Cervical fusion Hospitalization History Reason Date(Month/Year) Surgical Hx
--- OUTSIDE RECORDS SUMMARY | 2025-04-25 13:53 | XMS_ITS | Clinical Summary ---
Author Organization [facility] Address [address] Guidry: [place] [address] Care Team Providers Care Bottom Buffer Name Role Phone Aaliyah Britton MD Primary Care Provider [phone] Allergies Active Allergy Reactions Criticality Noted Date Comments Naproxen Swelling Low 02/19/2013 Medications acetaminophen (TYLENOL) 325 mg tablet Take 325 mg by mouth every 4 hours as needed. Active albuterol sulfate 90 mcg/Actuation inhaler INHALE 1 PUFF BY ORAL INHALATION FOUR TIMES A DAY NEEDED FOR COPD SHAKE WELL. RINSE MOUTHPIECE FREQUENTLY TO PREVENT CLOGGING. RESCUE INHALER, USE WITH AEROCHAMBER 05/31/20 Active ascorbic acid, vitamin C, (VITAMIN C) 500 mg tablet 1,000 mg. 05/03/20 Active aspirin (ECOTRIN EC) 81 mg Tablet, Delayed Release (E.C.) 81 mg. 05/31/20 Active atorvastatin (LIPITOR) 80 mg tablet 80 mg. 05/31/20 Active buPROPion HCL (WELLBUTRIN SR) 150 mg Sustained Release 12 hour tablet Take 150 mg by mouth daily. Active cetirizine (ZyrTEC) 10 mg tablet 10 mg. 03/16/20 Active cholecalciferol , Vitamin D3, 50 mcg (2,000 unit) Tablet 50 mcg. 06/01/20 Active clobetasoL (TEMOVATE) 0.05 % Ointment APPLY LIGHTLY TO AFFECTED AREA(S) EVERY EVENING (EXTERNAL USE ONLY) 09/01/19 Active diclofenac sodium (VOLTAREN) 1 % gel APPLY 2 GM TO AFFECTED AREA(S) THREE TIMES A DAY NEEDED FOR PAIN DO NOT EXCEED MORE THAN 16 GRAMS DAILY TO ANY LOWER EXTREMITY JOINT. NOT MORE THAN 8 GRAMS DAILY TO ANY UPPER EXTREMITY JOINT. MAX 32GM/DAY OVER ALL JOINTS. (MEASURE DOSE WITH RULER ATTACHED INSIDE BOX) 05/31/20 Active hydrocortisone (HYTONE) 2.5 % Cream APPLY SPARINGLY TO AFFECTED AREA(S) FOUR TIMES A DAY NEEDED FOR EXTERNAL USE ONLY. FOR SKIN CONDITION. APPLY SPARINGLY. 11/12/19 Active isosorbide mononitrate (IMDUR) 60 mg Extended Release 24 hour tablet Take 30 mg by mouth daily in the morning. Active multivitamin (DAILY-LEXIE) tablet Take 1 Tablet by mouth daily. Active methocarbamoL (ROBAXIN) 750 mg tablet TAKE 1 TABLET BY MOUTH FOUR TIMES A DAY NEEDED FOR MUSCLE SPASM *USE NEEDED ONLY, STOP TAKING CYCLOBENZAPRINE* 05/31/20 Active nitroglycerin (NITROSTAT) 0.4 mg Tablet, Sublingual 0.4 mg. 12/25/19 Active omeprazole (PriLOSEC) 20 mg Capsule, Delayed Release(E.C.) TAKE TWO CAPSULES BY MOUTH EVERY MORNING 30 MINUTES BEFORE MEAL(S) FOR GASTROESOPHAGEAL REFLUX DISEASE Active QUEtiapine (SEROquel) 200 mg tablet Take 150 mg by mouth daily at bedtime. Active sertraline (ZOLOFT) 100 mg tablet 200 mg. 01/14/20 Active sulfaSALAzine (AZULFIDINE EN-TAB) 500 mg Tablet, Delayed Release (E.C.) 1,500 mg. 11/17/19 Active traZODone (DESYREL) 100 mg tablet 300 mg. 07/31/19 Active triamcinolone acetonide (KENALOG) 0.1 % Cream APPLY LIGHTLY TO AFFECTED AREA(S) EVERY MORNING FOR RASH. (EXTERNAL USE ONLY) 09/01/19 Active cyclobenzaprine (FLEXERIL) 5 mg Tablet Take 5 mg by mouth daily at bedtime. Active fludrocortisone (FLORINEF) 0.1 mg tablet Take 0.1 mg by mouth daily. Takes 1/2 tablet daily Active tamsulosin (FLOMAX) 0.4 mg capsule TAKE TWO CAPSULES BY MOUTH ONCE A DAY APPROXIMATELY 30 MINUTES AFTER THE SAME MEAL EACH DAY (FOR PROSTATE) 180 Capsule 3 07/15/19 24 Active trospium (SANCTURA) 20 mg TabletIndicatio ns:Lower urinary tract symptoms (LUTS) TAKE ONE TABLET BY MOUTH TWICE A DAY FOR OVERACTIVE BLADDER. (TAKE ONE HOUR BEFORE A MEAL OR ON AN EMPTY STOMACH) 60 Tablet 6 12/21/19 24 Active Active Problems Problem Noted Date Diagnosed Date History of prostate cancer 10/07/2014 Lower urinary tract symptoms (LUTS) 07/10/2014 Prostate cancer 06/18/2014 Osteoarthritis (arthritis due to wear and tear o f joints) 04/16/2013 Hand pain 02/19/2013 Immunizations Immunization Administration Dates Next Due Influenza Seasonal Unspecified Formulation IM Family History Relation Name Status Comments Father Mother Social History Tobacco Use Types Packs/Day Years Used Date Smoking Tobacco: Every Day Cigarettes Last attempted to quit: 06/05/2003 Smokeless Tobacco: Never Tobacco Cessation:Ready to Q uit: Not Asked; Counseling Given: Not Answered Alcohol Use Standard Drinks/Week Comments No 0 (1 standard drink = 0.6 oz pur e alcohol) Sex and Gender Information Value Date Recorded Sex Assigned at Not on file Legal 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 Gender Identity Not on file Sexual Orientation Not on file Last Filed Vital Signs Vital Sign Reading Time Taken Comments Blood Pressure 137/74 07/19/2022 12:30 PM PROPOSAL MANAGER WRITER Pulse 73 07/19/2022 12:30 PM PROPOSAL MANAGER WRITER Temperature 36.2 C (97.1 F) 07/19/2022 12:30 PM PROPOSAL MANAGER WRITER Respiratory Rate 16 07/19/2022 12:3 0 PM PROPOSAL MANAGER WRITER Oxygen Saturation 91% 07/19/2022 12: 30 PM PROPOSAL MANAGER WRITER Inhaled Oxygen Concentration - - Weight 112.6 kg (248 lb 3.8 oz) 07/19/2022 9:33 AM PROPOSAL MANAGER WRITER Height 180.3 cm (5' 11 ) 07/19/2022 9:33 AM PROPOSAL MANAGER WRITER Body Mass Index 34.62 07/19/2022 9:33 AM PROPOSAL MANAGER WRITER Plan of Treatment Health Maintenance Due Date Last Done Comments ZOSTER VACCINE (2 of 3) 03/02/2012 01/06/2012 RSV VACCINE (60+ or ) (1 - 1-dose 75+ series) 2022 INFLUENZA VACCINE (#1) 2025 2, 08/11/2021, 04/24/2021, Additional history exists DTAP/TDAP/TD VACCINES (3 - T d or Tdap) 06/15/2029 06/15/2019, 08/11/2008, 08/13/2002, Additional history exists PNEUMOCOCCAL VACCINE 50+ YEARS Completed 1 07/26/2015, 10/04/2014, 07/19/2003 Insurance * Guarantor: OLD 2020 [facility] Account Type Relation to Patient Date of Phone Billing Address Corporate Other DEFAULT ADDRESS [address] [place] * Guarantor: [facility] Account Type Relation to Patient Date of Phone Billing Address Corporate Other DEFAULT ADDRESS [address] [place] Care Teams Bottom Buffer Relationship Specialty Start Date End Date Aaliyah Britton MD PCP - General Family Practice 01/29/21
--- OUTSIDE RECORDS SUMMARY | 2025-04-25 13:53 | XMS_ITS | Clinical Summary ---
Author Organization [facility] Address 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 Active cetirizine (ZYRTEC) 10 mg Oral tablet Take 10 mg by mouth daily. Active clopidogrel (PLAVIX) 75 mg Oral Tab Take 75 mg by mouth daily. Active isosorbide mononitrate SR 24 hour (IMDUR) 60 mg Oral tablet Take 60 mg by mouth daily early breastfeeding care specialist. Active methocarbamol (ROBAXIN) 750 mg Oral tablet Take 750 mg by mouth 4 times daily. Active nitroglycerin (NITROSTAT) 0.[address] 0.4 mg under tongue every 5 minutes as needed. Active pravastatin (PRAVACHOL) 80 mg Oral tablet Take 80 mg by mouth Daily LATE. Active QUEtiapine (SEROQUEL) 200 mg Oral tablet Take 100 mg by mouth 2 times daily. Active ranitidine HCl (ZANTAC) 300 mg Oral Cap Take 300 mg by mouth 2 times daily. Active sertraline (ZOLOFT) 100 mg Oral tablet Take 100 mg by mouth daily. Active sulfaSALAzine (AZULFIDINE) 500 mg Oral tablet Take 1,000 mg by mouth 2 times daily. Active tamsulosin (FLOMAX) 0.4 mg Oral capsule Take 0.4 mg by mouth daily. Active aspirin (DEVAN) 325 mg Oral tablet Take 325 mg by mouth daily. Active zolpidem (AMBIEN) 10 mg Oral tablet Take 10 mg by mouth nightly as needed. Active multivitamin (DAILY-LEXIE) Oral tablet Take 1 Tab by mouth daily. Active 0mega-3 fatty acids-vitamin E (FISH OIL) 1,000 mg Oral Cap Take 1,000 mg by mouth. Active omeprazole (PRILOSEC) 20 mg Capsule, Delayed Release(E.C.) Take 40 mg by mouth daily early breastfeeding care specialist. Active ALBUTEROL SULFATE INHALATION Take by inhalation. Active atorvastatin (LIPITOR) 80 mg tablet Take 80 mg by mouth Daily LATE. Active traZODone (DESYREL) 100 mg tablet Take 100 mg by mouth daily at bedtime. Active ferrous gluconate 325 mg (36 mg iron) Tablet Take 325 mg by mouth daily. Active oxyCODONE-acetam inophen (PERCOCET) 5-325 mg tablet Take 1 Tab by mouth every 4 hours as needed for Pain, Moderate. 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 ELIMINATION Gender Identity Not on file Sexual Orientation Not on file Occupation Industry Job Start Date Job End Date Not on file Not on file Not on file Not on file Last Filed Vital Signs Vital Sign Reading Time Taken Comments Blood Pressure 124/71 11/27/2019 10:28 AM CDT Pulse 69 11/27/2019 10:28 AM CDT Temperature 36.3 C (97.3 F) 11/27/2019 10:28 AM CDT Respiratory Rate 18 08/30/2014 8:35 AM WASTE ELIMINATION Oxygen Saturation 96% 11/27/2019 10:28 AM CDT Inhaled Oxygen Concentration - - Weight 115 kg (253 lb 9.6 oz) 11/27/2019 10:28 A M CDT Height 180.3 cm (5' 11 ) 11/27/2019 10:28 AM CDT stated Body Mass Index 35.37 11/27/2019 10:28 AM CDT Plan of Treatment Health Maintenance Due Date Last Done Comments DTAP/TDAP/TD VACCINES (1 - Tdap) 1966 PNEUMOCOCCAL VACCINE 50+ YEARS (1 of 1 - PCV) 03/10/19 97 ZOSTER VACCINE (1 of 2) 1997 RSV VACCINE (60+ or ) (1 - 1-dose 75+ series) 2022 INFLUENZA VACCINE (#1) 2025 03/22/2014 Insurance [facility] [place] [address] Advance Directives For more information, please contact: [phone] * Full Code (Latest Code Status on File) Date Activated Date Inactivated Comments 08/29/2014 3:09 PM 08/30/2014 12:28 PM * Full Code Date Activated Date Inactivated Comments 06/12/2013 10:17 AM 06/12/2013 5:23 PM * Full Code Date Activated Date Inactivated Comments 06/12/2013 8:44 AM 06/12/2013 10:17 AM
--- OUTSIDE RECORDS SUMMARY | 2025-04-25 13:53 | XMS_ITS | Encounter Summary ---
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
--- NOTE | 2025-04-25 14:52 | W.ED.BACK ---
HPI - Back Pain/Injury General: Chief Complaint: Back Pain/Injury Stated Complaint: lower back pain Time Seen by Provider: 04/25/25 14:29 History of Present Illness: 80-year-old male presents to the emergency room with complaint of low back pain. 1 month ago he had a bladder stimulator placed it is in the lower lumbar region partially overlying the sacroiliac joint. He states he had problems with low back pain since then and they have gotten worse. He did not have any sharp electrical-like shock pain. He has shut off the stimulator despite this he still has pain there is no recent trauma or falls no fever sweats or chills no drainage from the wounds. He has no history of any cancer he is not had any urinary retention or fecal incontinence he has severe low back pain when he tries to walk or move but he does not have any radicular pain into the legs. Associated symptoms: Deny abdominal pain, chills, dysuria, fever(s) or urinary urgency Related Data Home Medications ?Medication ?Instructions ?Recorded ?Confirmed aspirin 81 mg tablet,delayed 81 mg PO BEDTIME 07/03/19 04/25/25 release atorvastatin 80 mg tablet 80 mg PO BEDTIME 07/03/19 04/25/25 sulfasalazine 500 mg tablet 1,500 mg PO BID 07/03/19 04/25/25 tamsulosin 0.4 mg capsule (Flomax) 0.8 mg PO BEDTIME 07/03/19 04/25/25 omeprazole 20 mg tablet,delayed 40 mg PO QAM 04/20/22 04/25/25 release trospium 20 mg tablet 20 mg PO BID 04/20/22 04/25/25 fluticasone propionate 50 1 spray intranasal BID 08/16/22 04/25/25 mcg/actuation nasal spray,suspension (Flonase Allergy Relief) albuterol sulfate 90 mcg/actuation 1 inh inhalation QID PRN Shortness 12/10/22 04/25/25 aerosol inhaler Of Breath ascorbic acid (vitamin C) 500 mg 1,000 mg PO QAM 12/10/22 04/25/25 tablet (Vitamin C) cetirizine 10 mg tablet (Zyrtec) 10 mg PO DAILY 12/10/22 04/25/25 cholecalciferol (vitamin D3) 50 50 mcg PO DAILY 12/10/22 04/25/25 mcg (2,000 unit) capsule (Vitamin D3) hydrocortisone 2.5 % topical cream 1 applic topical QID PRN unknown 12/10/22 04/25/25 methocarbamol 750 mg tablet 750 mg PO BEDTIME 12/10/22 04/25/25 famotidine 20 mg tablet 20 mg PO DAILY 12/12/24 04/25/25 ropinirole 1 mg tablet 1 mg PO TID 12/12/24 04/25/25 acetaminophen 500 mg tablet 1,000 mg PO Q6H PRN Pain 04/25/25 04/25/25 sertraline 100 mg tablet 200 mg PO QAM 04/25/25 04/25/25 Previous Rx's ?Medication ?Instructions ?Recorded Acapella #1 ea 03/11/23 guaifenesin 600 mg tablet, 600 mg PO Q12H PRN congestion #60 03/11/23 extended release 12 hr (Mucinex) tabs trazodone 100 mg tablet 200 mg (2 x 100 mg) PO BEDTIME #60 05/13/23 tabs nitroglycerin 0.4 mg sublingual 0.4 mg sublingual Q5M PRN Chest 11/14/23 tablet (Nitrostat) Pain #30 tabs isosorbide mononitrate 30 mg See Rx Instructions .Route 09/03/24 tablet,extended release 24 hr .COMPLEX #135 tabs hydrocodone 5 mg-acetaminophen 325 1 tab PO Q6H PRN pain #10 tabs 16/25 mg tablet methylprednisolone 4 mg tablets in See Rx Instructions PO .COMPLEX 04/25/25 a dose pack (Medrol (Mir)) #21 ea hydrocodone 5 mg-acetaminophen 325 1 tab PO Q8H PRN pain #14 tabs 10/17/25 mg tablet Allergies Allergy/AdvReac Type Severity Reaction Status Date / Time naproxen Allergy Severe lip Verified 12/12/24 15:34 swelling Review of Systems Const: Denies: fever(s) or chills Card: Denies: chest pain Resp: Denies: dyspnea GI: Denies: abdominal pain : Denies: dysuria, urinary frequency or urinary urgency Musc: Reports: back pain; Denies: neck pain Skin/Breast: Denies: rash PFSH ED PFSH: Medical History Hypertension Coronary artery disease Anxiety Depression Sleep apnea History of recurrent ear infection Prostate cancer Had cryogenic process performed Surgical History Hx of colonoscopy with polypectomy History of neck surgery History of surgery on upper extremity Hand Family History Father Stroke Social History Smoking and tobacco/nicotine status: former use of tobacco/nicotine Quit status (tobacco/nicotine): has quit using Year quit tobacco: 2022 Former quit date comment: 1 ppd X 60 years Second hand smoke exposure: No Alcohol intake: never Substance/Drug Use: never Lives independently: Yes Household members: spouse and family Marital status: service: Yes Current occupational status: retired Do you think of yourself as: Straight/Heterosexual Current gender identity: Male Physical Exam Const: COMMON NORMALS: no acute distress GENERAL APPEARANCE: cooperative and comfortable ORIENTATION/CONSCIOUSNESS: Yes awake, Yes oriented to person, Yes oriented to place and Yes oriented to time HENMT: COMMON NORMALS: normocephalic, atraumatic and hearing grossly normal bilaterally HEAD & SCALP: normocephalic and atraumatic Resp: COMMON NORMALS: normal respiratory effort, No retractions, No use of accessory muscles and clear to auscultation bilaterally AUSCULTATION: clear to auscultation bilaterally Cardio: COMMON NORMALS: regular rate, regular rhythm and No murmurs present (Cardio) RATE: regular rate RHYTHM: regular rhythm GI: COMMON NORMALS: Soft to palpation and No hepatosplenomegaly present AUSCULTATION: Yes normoactive bowel sounds PALPATION: Yes Soft to palpation, No Tenderness to palpation present (GI), No Guarding due to palpation present (GI) and Yes No hepatosplenomegaly present Extremity: COMMON NORMALS: normal to inspection, capillary refill normal, no clubbing, cyanosis or edema, no calf tenderness and no pedal edema Neuro: SENSORIUM/ORIENTATION: Yes oriented to person, Yes oriented to place and Yes oriented to time Skin: COMMON NORMALS: no rashes or lesions noted GENERAL SKIN EXAM: no rashes or lesions noted Course Vital Signs: Vital signs: Vital Signs Temperature 97.8 F 10/16/25 13:16 Pulse Rate 67 04/25/25 16:38 Respiratory Rate 18 04/25/25 15:38 Blood Pressure 141/75 04/25/25 16:38 Pulse Oximetry 97 04/25/25 16:38 Oxygen Delivery Me thod Room Air 04/25/25 13:16 MDM - Back Pain/Injury Medical Decision Making No red flag symptoms at this point he is not having any retention or fecal incontinence. He has sensation lower extremities and is able to ambulate improvement with medications given will discharge home encouraged him to follow-up with his primary care physician and surgeon who placed the pain pump. Patient given medications at discharge. Labs 04/25/25 14:47 04/25/25 14:47 Laboratory Results WBC 6.96 10^3/uL (3.29-11.43) 04/25/25 14:47 RBC 4.02 10^6/uL (3.85-5.65) 04/25/25 14:47 Hgb 12.20 g/dL (11.27-16.99) 04/25/25 14:47 Hct 36.8 % (37-53) L 04/25/25 14:47 MCV 91.5 fl (82-101) 04/25/25 14:47 MCH 30.3 pg (27-33) 04/25/25 14:47 MCHC 33.2 g/dL (30-55) 04/25/25 14:47 RDW 13.8 % (12.1-15.1) 04/25/25 14:47 Plt Count 159 10^3/cmm (157-399) 04/25/25 14:47 MPV 9.9 fL (7.4-10.4) 04/25/25 14:47 Neut % (Auto) 63.0 % 04/25/25 14:47 Lymph % (Auto) 24.6 % 04/25/25 14:47 Fleming % (Auto) 8.3 % 04/25/25 14:47 Eos % (Auto) 3.2 % 04/25/25 14:47 Baso % (Auto) 0.6 % 04/25/25 14:47 Neut # (Auto) 4.39 10^3/uL (1.8-7.7) 04/25/25 14:47 Lymph # (Auto) 1.7 10^3/uL (0.8-4.8) 04/25/25 14:47 Fleming # (Auto) 0.6 10^3/uL (0.2-0.9) 04/25/25 14:47 Eos # (Auto) 0.2 10^3/uL (0.0-0.8) 04/25/25 14:47 Baso # (Auto) 0.0 10^3/uL (0.0-0.1) 04/25/25 14:47 Nucleated RBC % (auto) 0 % 04/25/25 14:47 Nucleated RBCs # 0.0 /100WBC 04/25/25 14:47 Sodium 140 mmol/L (136-145) 04/25/25 14:47 Potassium 3.9 mmol/L (3.5-5.1) 04/25/25 14:47 Chloride 103 mmol/L (98-107) 04/25/25 14:47 Carbon Dioxide 28 mmol/L (22-29) 04/25/25 14:47 Anion Gap 12.9 (5-19) 04/25/25 14:47 BUN 17 mg/dL (8-23) 04/25/25 14:47 Creatinine 0.7 mg/dL (0.7-1.2) 04/25/25 14:47 GFR Calculation Not Reportable 04/25/25 14:47 Glucose 95 mg/dL (65-115) 04/25/25 14:47 Calculated Osmolality 291 mOsm/kg (285-295) 04/25/25 14:47 Calcium 8.8 mg/dL (8.5-10.5) 04/25/25 14:47 Total Bilirubin 0.3 mg/dL (0.15-1.2) 04/25/25 14:47 AST 11 U/L (0-40) 04/25/25 14:47 ALT 12 U/L (0-41) 04/25/25 14:47 Alkaline Phosphatase 47 U/L (40-130) 04/25/25 14:47 C-Reactive Protein 3.0 mg/L (0.0-4.9) 04/25/25 14:47 Total Protein 6.2 g/dL (6.6-8.7) L 04/25/25 14:47 Albumin 3.8 g/dL (3.5-5.2) 04/25/25 14:47 Globulin 2.4 g/dL (1.3-4.6) 04/25/25 14:47 Urine Color Yellow (Yellow) 04/25/25 15:51 Urine Appearance Clear (CLEAR) 04/25/25 15:51 Urine pH 5.5 (5-7) 04/25/25 15:51 Ur Specific Cotton 1.012 (1.005-1.030) 04/25/25 15:51 Urine Protein Negative (Negative) 04/25/25 15:51 Urine Glucose (UA) Negative (Normal) 04/25/25 15:51 Urine Ketones Negative (Negative) 04/25/25 15:51 Urine Blood Negative (Negative) 04/25/25 15:51 Urine Nitrate Negative (Negative) 04/25/25 15:51 Urine Bilirubin Negative (Negative) 04/25/25 15:51 Urine Urobilinogen 0.2 mg/dL (Negative) 04/25/25 15:51 Ur Leukocyte Esterase Trace (Negative) A 04/25/25 15:51 Urine RBC 0-2 /hpf (0-2) 04/25/25 15:51 Urine WBC 0-5 /hpf (0-5) 04/25/25 15:51 Ur Squamous Epith Cells 0-5 /hpf (0-5) 04/25/25 15:51 Amorphous Sediment Not Reportable 04/25/25 15:51 Urine Bacteria None seen /hpf (NONE) 04/25/25 15:51 Hyaline Casts 0-4 /lpf H 04/25/25 15:51 No radiology studies performed this visit Discharge Plan Discharge Patient Disposition: Home Clinical Impression: Back pain, Complication of implanted device Condition: Stable Prescriptions: New methylprednisolone [Medrol (Mir)] 4 mg tablets,dose pack See Rx Instructions .ROUTE .COMPLEX Qty: 21 0RF Rx Instructions: orally per package directions hydrocodone-acetaminophen 5-325 mg tablet 1 tab PO Q6H PRN (Reason: pain) Qty: 10 0RF hydrocodone-acetaminophen 5-325 mg tablet 1 tab PO Q8H PRN (Reason: pain) Qty: 14 0RF Rx Instructions: Take 1/2 to 1 tab every 8 hours as needed for pain No Action aspirin 81 mg tablet,delayed release (DR/EC) 81 mg PO BEDTIME atorvastatin 80 mg tablet 80 mg PO BEDTIME sulfasalazine 500 mg tablet 1,500 mg PO BID tamsulosin [Flomax] 0.4 mg capsule 0.8 mg PO BEDTIME fluticasone propionate [Flonase Allergy Relief] 50 mcg/actuation spray,suspension 1 spray INTRANASAL BID (DME) Acapella See Rx Instructions .Route .MEDSUPPLY Qty: 1 0RF Rx Instructions: As directed guaifenesin [Mucinex] 600 mg tablet extended release 12hr 600 mg PO Q12H PRN (Reason: congestion) Qty: 60 6RF nitroglycerin [Nitrostat] 0.4 mg tablet, sublingual 0.4 mg SUBLINGUAL Q5M PRN (Reason: Chest Pain) Qty: 30 6RF Rx Instructions: do not exceed 3 doses per episode ropinirole 1 mg tablet 1 mg PO TID famotidine 20 mg tablet 20 mg PO DAILY trospium 20 mg tablet 20 mg PO BID Rx Instructions: administer on an empty stomach omeprazole 20 mg tablet,delayed release (DR/EC) 40 mg PO QAM isosorbide mononitrate 30 mg tablet extended release 24 hr See Rx Instructions .ROUTE .COMPLEX Qty: 135 2RF Dose Instruction: TAKE ONE AND ONE-HALF TABLETS BY MOUTH EVERY MORNING TAKE ON EMPTY STOMACH. SWALLOW WHOLE. DO NOT CRUSH OR CHEW. Rx Instructions: TAKE ONE AND ONE-HALF TABLETS BY MOUTH EVERY MORNING TAKE ON EMPTY STOMACH. SWALLOW WHOLE. DO NOT CRUSH OR CHEW. cetirizine [Zyrtec] 10 mg Tablet 10 mg PO DAILY methocarbamol 750 mg Tablet 750 mg PO BEDTIME ascorbic acid (vitamin C) [Vitamin C] 500 mg Tablet 1,000 mg PO QAM hydrocortisone 2.5 % Cream 1 applic TOPICAL QID PRN (Reason: unknown) albuterol sulfate 90 mcg/actuation Hfa Aerosol Inhaler 1 inh INHALATION QID PRN (Reason: Shortness Of Breath) cholecalciferol (vitamin D3) [Vitamin D3] 50 mcg (2,000 unit) Capsule 50 mcg PO DAILY trazodone 100 mg tablet 200 mg PO BEDTIME Qty: 60 0RF sertraline 100 mg tablet 200 mg PO QAM acetaminophen 500 mg tablet 1,000 mg PO Q6H PRN (Reason: Pain) Discharge Orders: Discharge ED (Routine); Ordered 04/25/25 Ordered By: Chago Aguirre Referrals: Jessica Heredia MD [Primary Care Provider, Family Practice] Discharge Diet: Usual diet Discharge Activity: Increase activity as tolerated Patient Instructions: Opioid Safety, Pain Management, Patient Portal & [facility] Instructions Activity Restrictions/Additional Instructions: Thank you for choosing [facility] for your healthcare needs today. It is very important that you follow up as instructed or that you return to the Emergency Department should you have concerns or if your condition changes or worsens in any way. Emergency department visits are focused on emergent conditions, in some cases you may require further evaluation on an outpatient basis. You were seen in the emergency room with complaint of pain in the area of a previously implantable device there is no sign of infection laboratory test done with normal send no trauma or red flag syndromes no imaging was done at this time. You were given prescriptions for pain medications to use at home. Recommended that you follow-up with his surgery team to place a device for consultation regarding these complications. (Please note that included in your discharge packet is information concerning opioid safety and pain management. This information is given to all patients were discharged from the ER regardless of their discharge diagnosis or the medicines they usually take or are prescribed.) Print Language: Setswana Coding Level of Care Code ED [employer] for Nick Soliz
[2025-04-25 15:18] LABS: Hematocrit 36.8 % (37-53); Hemoglobin 12.20 g/dL (11.27-16.99); Mean Corpuscular HGB Conc 33.2 g/dL (30-55); Mean Corpuscular Hemoglobin 30.3 pg (27-33); Mean Corpuscular Volume 91.5 fl (82-101); Nucleated Red Blood Cells % 0 %; Platelet Count 159 10^3/cmm (157-399); Red Blood Count 4.02 10^6/uL (3.85-5.65); White Blood Count 6.96 10^3/uL (3.29-11.43)
[2025-04-25 15:38] VITALS: BP 154/85; PULSE 57; RESP 18; O2SAT 97
[2025-04-25 15:38] LABS: Alanine Aminotransferase 12 U/L (0-41); Albumin Level 3.8 g/dL (3.5-5.2); Alkaline Phosphatase 47 U/L (40-130); Anion Gap 12.9 (5-19); Aspartate Amino Transferase 11 U/L (0-40); Blood Urea Nitrogen 17 mg/dL (8-23); Calcium 8.8 mg/dL (8.5-10.5); Carbon Dioxide 28 mmol/L (22-29); Chloride 103 mmol/L (98-107); Creatinine Clr Calc Pharmacy 97.4554; Globulin 2.4 g/dL (1.3-4.6); Glucose 95 mg/dL (65-115); Osmolality Calculated 291 mOsm/kg (285-295); Potassium 3.9 mmol/L (3.5-5.1); Sodium 140 mmol/L (136-145); Total Protein 6.2 g/dL (6.6-8.7)
[2025-04-25] MEDS: morphine 4 mg/mL SDV 1 mL IVP (15:38)
[2025-04-25] MEDS: methylPREDNISolone sod succ 125 mg/2 mL INJ IVP (15:38)
--- NOTE | 2025-04-25 15:39 | PC.NURSE ---
pt refusing to give urine sample, states urinated prior to arrival. pt refusing catheter, ED provider notified
[2025-04-25 16:13] LABS: Glucose Urine UA Negative (Normal); Nitrate Urine Negative (Negative); Specific Gravity, Urine 1.012 (1.005-1.030)
[2025-04-25 16:16] LABS: Add Urine Microscopic? YES
[2025-04-25 16:38] VITALS: BP 141/75; PULSE 67; O2SAT 97
== END 2025-04-25 16:46 | disposition home or self-care (01) ==
PROVIDERS: Emergency Provider Family Medicine; PCP Family Medicine
DX: M54.9 Dorsalgia, unspecified (principal); T83.190A Other mechanical complication of urinary electronic stimulator device, initial encounter; I10 Essential (primary) hypertension; I25.10 Atherosclerotic heart disease of native coronary artery without angina pectoris; Z85.46 Personal history of malignant neoplasm of prostate; Z79.82 Long term (current) use of aspirin; Z87.891 Personal history of nicotine dependence; X58.XXXA Exposure to other specified factors, initial encounter
CPT/HCPCS: 36415; 80053; 81001; 85025; 86140; 96374; 96375; 99284; J2270; J2919

== ENCOUNTER → 2025-05-14 08:41 | Outpatient (BNVA) | payer OTHER, SELFPAY | PROVIDERS: PCP Family Medicine; Visit Provider Internal Medicine | DX: J44.89 Other specified chronic obstructive pulmonary disease (principal); J47.9 Bronchiectasis, uncomplicated; J98.11 Atelectasis; G47.33 Obstructive sleep apnea (adult) (pediatric); Z99.89 Dependence on other enabling machines and devices; F17.200 Nicotine dependence, unspecified, uncomplicated; J44.9 Chronic obstructive pulmonary disease, unspecified | CPT/HCPCS: 99214; Q3014 ==

== ENCOUNTER → 2025-06-12 14:50 | Outpatient (BNVA) | payer OTHER, SELFPAY | PROVIDERS: PCP Family Medicine; Visit Provider Internal Medicine | DX: I25.10 Atherosclerotic heart disease of native coronary artery without angina pectoris (principal); I10 Essential (primary) hypertension; E78.5 Hyperlipidemia, unspecified; J43.9 Emphysema, unspecified; Z87.891 Personal history of nicotine dependence | CPT/HCPCS: 99213 ==

== ENCOUNTER 2025-06-27 07:01 | Outpatient (CLI) | payer OTHER, SELFPAY ==
[2025-06-27 09:25] LABS: Alanine Aminotransferase 13 U/L (0-41); Albumin Level 4.2 g/dL (3.5-5.2); Alkaline Phosphatase 46 U/L (40-130); Anion Gap 13.2 (5-19); Aspartate Amino Transferase 13 U/L (0-40); Blood Urea Nitrogen 14 mg/dL (8-23); Calcium 9.0 mg/dL (8.5-10.5); Carbon Dioxide 29 mmol/L (22-29); Chloride 101 mmol/L (98-107); Globulin 2.1 g/dL (1.3-4.6); Glucose 122 mg/dL (65-115); Osmolality Calculated 290 mOsm/kg (285-295); Potassium 4.2 mmol/L (3.5-5.1); Sodium 139 mmol/L (136-145); Total Protein 6.3 g/dL (6.6-8.7)
== END 2025-06-27 07:02 | disposition home or self-care (01) ==
LOC: RT 07:05
PROVIDERS: PCP Family Medicine; Visit Provider Internal Medicine
DX: J47.9 Bronchiectasis, uncomplicated (principal); J44.9 Chronic obstructive pulmonary disease, unspecified; J45.909 Unspecified asthma, uncomplicated
CPT/HCPCS: 36415; 80053; 82784; 94060; 94726; 94729; J7613